=== PATIENT | male | born 1970 | race Caucasian/White ===

== ENCOUNTER 2024-05-27 08:50 | Outpatient (AMB) | payer MEDICARE, MEDICAID, SELFPAY ==
--- NOTE | 2024-05-27 09:17 | MHC.OFFVIS ---
Vital Signs 05/27/24 09:27 Height 6 ft Weight 425 lb BMI 57.6 BP 112/74 Blood Pressure Location Lt brachial Position Sitting Pulse 71 Pulse Source Pulse Oximeter Pulse Oximetry (%) 98 Oxygen Delivery Method Room Air Intake Visit Reasons: Myopathy Intake Note: Patient presents for Myopathy. I feel pain all over my body. I been like this for 2 years. I feel steady pain on left shoulder and both knees. Oxycodone and Gabapentin helps with the pain. Allergies atorvastatin Allergy (Mild, Verified 05/27/24 09:23) Unknown Medication List - Last Reconciled 05/27/24 by Chelsie Juarez MD acetaminophen 650 mg PO Q6H PRN azathioprine 50 mg PO DAILY duloxetine 60 mg PO DAILY gabapentin 300 mg PO TID losartan 25 mg PO DAILY metoprolol tartrate 25 mg PO BID omeprazole 40 mg PO DAILY oxybutynin chloride 5 mg PO DAILY oxycodone-acetaminophen 10-325 mg 1 tab PO TID PRN warfarin 5 mg PO DAILY warfarin 2.5 mg PO DAILY HPI Comments Details: Patient is a 53-year-old male with hypertension complicated by TIA, diabetes,, history of pulmonary embolism and renal infarct, patent Alvares ovale, and autoimmune necrotizing myopathy who presents today to establish care. Patient had rapid onset of lower extremity muscle weakness 05/2022. CK was checked and was elevated and he was admitted for IV fluids. Despite IV fluids the CK did not respond and so further testing was sought. Of note his CK kept increasing requiring multiple hospitalizations. His 3rd hospitalization he had a muscle biopsy: left calf ([facility]), results were inconclusive. While waiting for the results of the first biopsy he continued to deteriorate and ultimately had respiratory muscle weakness requiring intubation. Transferred to [facility] and had a second biopsy of the right thigh ([facility]) - which showed evidence of immune mediated necrotizing myopathy. He was started on steroids and methotrexate with some improvement in his muscle weakness. Started IVIG every month and PT. Was able to be extubated and trach ultimately removed He was getting his care in [place] but is transitioning back to the [facility] area. IVIG dose last month PT stopped last month as well due to change in insurance Currently on azathioprine and IVIG for his IMNM Current muscle strength - transfers from wheel chair to bed or chair - can stand for a few seconds but cannot walk [facility] Medical History (Updated 01/08/25 @ 15:20 by Chelsie Juarez MD) Necrotizing myositis Statin-induced myositis Surgical History History of appendectomy History of cholecystectomy Family History Mother Myositis Social History (Updated 05/27/24 @ 09:27 by RASHEED Valencia) Household Members: Family Housing: House Alcohol intake: current Patient Tobacco Use Status: Former Tobacco user Cigarettes Per Day: 2 Years Smoked: 30 Review of Systems Const Details: Review of Systems Constitutional: Denies fever, chills, weight loss ENT: Denies vision changes, eye pain or eye redness, dental caries, dry mouth GI: Denies nausea, vomiting, diarrhea, abdominal pain, change in BM Pulm: Denies SOB, ALARCON, hemoptysis, wheezing Cards: Denies chest pain, palpitations Skin: Denies Raynaud's, rash, nail changes, photosensitivity, MANAGER INCOME TAX: Denies headaches, weakness, paresthesias, recurrent falls MSK: as per HPI All other systems reviewed and are unremarkable except noted above Physical Exam Vital Signs: Last Vital Signs Pulse 71 05/27/24 09:27 BP 112/74 05/27/24 09:27 Pulse Ox 98 05/27/24 09:27 Oxygen Delivery Method Room Air 05/27/24 09:27 BMI result Body Mass Index 57.6 Physical Examination CONSTITUITIONAL Patient alert and cooperative. Well appearing and in no apparent painful distress. Examined in wheel chair HEENT Conjunctiva and sclera clear. ?Pupils equal round and reactive to light. ?No lymphadenopathy. ? CHEST/RESPIRATORY SYSTEM Normal respiratory effort and able to speak in complete sentences. ?Clear to auscultation bilaterally. ?No crackles, rales, rhonchi, wheezes heard. CARDIAC SYSTEM Regular rate and rhythm. ?S1 and S2 heard no murmurs. ?Radial pulses intact bilaterally MSK Right Left Neck flexion 5/5 Senior Net Software Developer strength 5/5 5/5 Wrist flexion 5/5 5/5 Wrist extension 5/5 5/5 Elbow flexion 5/5 5/5 Elbow extension 5/5 5/5 Shoulder abduction 5/5 5/5 Shoulder adduction 5/5 5/5 Knee extension 5/5 5/5 Knee flexion 5/5 5/5 Hip flexion 3-4/5 3-4/5 No evidence of synovitis involving the hands, wrists, knees or ankles Bilateral lower extremity tense edema with erythema and scaling to the feet. SKIN Skin intact without rashes. Results Reviewed Results Reviewed: 08/2022 CATALINO 1:320, speckled Negative SSA/SSB, Bridges, SHIP RUNNER, dsDNA, Negative Jo1, PL7, PL12, EJ, OJ, SRP, Mo2, TIF1 gamma, MDA 5, NXP2, PM/Scl70, Ku, SSA 52KD, U1RNP, U2RNP, U3RNP HMGCR Ab positive 70 Assessment & Plan Assessment & Plan (1) Necrotizing myositis: Comment: HMGCR positive Biopsy proven Code(s): M60.80 - Other myositis, unspecified site Category: Medical Plan: #Immune mediated necrotizing myositis Patient is a 53-year-old male with biopsy-proven immune mediated necrotizing myositis, hMGCR positive. His course has been complicated by respiratory muscle weakness and concomitant respiratory muscle failure requiring intubation. He has been weaned off of the vent and the trach has been removed and overall he has had improvement in his muscle weakness and his CK has normalized. He still has proximal muscle weakness involving the bilateral lower extremities. We will need to continue his physical therapy as well as restart his medication including IVIG and continue his azathioprine. Plan - IVIG 2g/kg given over 2 days - Azathioprine 150mg daily - Check CK, Aldolase and TPMT - PT - RTC 3 months Plan I spent 60 minutes reviewing the record and labs, contacting and speaking with Dr. Angela Oropeza from [facility], taking a history, examining the patient, discussing the treatment plan and documenting in the medical record Orders: Orders Aldolase Today M60.80 - Other myositis, unspecified site, M60.9 - Myositis, unspecified, T46.6X5A - Adverse effect of antihyperlipidemic and antiarteriosclerotic drugs, initial encounter Immunoglobulins,IgG IgA IgM Today M60.80 - Other myositis, unspecified site, M60.9 - Myositis, unspecified, T46.6X5A - Adverse effect of antihyperlipidemic and antiarteriosclerotic drugs, initial encounter PT Evaluation and Treatment Today M60.80 - Other myositis, unspecified site, M60.9 - Myositis, unspecified, T46.6X5A - Adverse effect of antihyperlipidemic and antiarteriosclerotic drugs, initial encounter Prometheus TPMT Enzyme Today M60.80 - Other myositis, unspecified site, M60.9 - Myositis, unspecified, T46.6X5A - Adverse effect of antihyperlipidemic and antiarteriosclerotic drugs, initial encounter Creatine Kinase Total Today M60.80 - Other myositis, unspecified site, M60.9 - Myositis, unspecified, T46.6X5A - Adverse effect of antihyperlipidemic and antiarteriosclerotic drugs, initial encounter Referrals Infusion Center Notification G72.49 - Other inflammatory and immune myopathies, not elsewhere classified, M60.80 - Other myositis, unspecified site, M60.9 - Myositis, unspecified, T46.6X5A - Adverse effect of antihyperlipidemic and antiarteriosclerotic drugs, initial encounter Coding Level of Care Code New Pt Level 5 (94128) Complex EM visit Add On G2211 Diagnoses Necrotizing myositis M60.80
[2024-05-27 09:27] VITALS: BP 112/74; PULSE 71; O2SAT 98; BMI 57.6
== END 2024-05-27 10:32 | disposition home or self-care (01) ==
PROVIDERS: PCP Nurse Practitioner Family; Visit Provider Student in an Organized Health Care Education/Training Program
DX: M60.89 Other myositis, multiple sites (principal)
CPT/HCPCS: 99205; G2211

== ENCOUNTER → 2024-05-27 08:50 | Outpatient (BNVA) | payer MEDICARE, MEDICAID, SELFPAY | PROVIDERS: PCP Nurse Practitioner Family; Visit Provider Student in an Organized Health Care Education/Training Program | DX: M60.80 Other myositis, unspecified site (principal) | CPT/HCPCS: 99202 ==

== ENCOUNTER 2024-05-29 10:29 | Outpatient (AMB) | payer MEDICARE, MEDICAID, SELFPAY ==
--- NOTE | 2024-05-29 10:36 | A.OFFVIS_ITS ---
Vital Signs 05/29/24 10:39 Height 6 ft Weight 425 lb BMI 57.6 BP 134/82 Blood Pressure Location Lt radial Position Sitting Respiration 16 Pulse 81 Pulse Source Pulse Oximeter Pulse Oximetry (%) 98 Oxygen Delivery Method Room Air Intake Visit Reasons: Necrotizing Autoimmune Myopathy Allergies atorvastatin Allergy (Mild, Verified 05/29/24 10:40) Unknown Medication List - Last Reconciled 05/29/24 by Angie Canales LPN acetaminophen 650 mg PO Q6H PRN azathioprine 50 mg PO DAILY duloxetine 60 mg PO DAILY gabapentin 300 mg PO TID losartan 25 mg PO DAILY metoprolol tartrate 25 mg PO BID omeprazole 40 mg PO DAILY oxybutynin chloride 5 mg PO DAILY oxycodone-acetaminophen 10-325 mg 1 tab PO TID PRN warfarin 5 mg PO DAILY warfarin 2.5 mg PO DAILY HPI HPI Necrotizing Autoimmune Myopathy: Details: 53-year-old male referred to us by his primary care provider to solicit alternatives and/or recommendations regarding his chronic pain management with o pioids. Per report patient experienced a bout of rhabdomyolysis in 2022. Subsequently he was diagnosed with autoimmune necrotizing myositis. This resulted in developing generalized chronic pain that was managed at the nursing facility initially with oxycodone 10 mg up to 6 times a day. Following discharge, he was placed on immunotherapy and his symptoms somewhat started to improve. This allowed him to wean down on his Percocet use. Unfortunately over the last few months, his response to immunotherapy has plateaued. This has resulted in continuing chronic pain symptoms that affect different parts of his body requiring narcotic use. He was able to wean down to oxycodone-acetaminophen 10/325 mg 3 times a day but he feels that this is not enough to control his symptoms. He continues to d escribe pain in his bilateral shoulders, hips, knees, ankles, neck and lower back she is between 7 to 9/10 in intensity at its worst. He recently had a change in his primary care provider who was not comfortable in continuing his prescription for chronic opioids. He is currently on 45 mme per day. He denies any side effects including sedation, cognitive impairment or constipation. He has not had any episodes of drowsiness or lack or arousal. He uses a CPAP for ANDRA. On exam today: Appears afebrile. Alert and oriented. Mood and affect appropriate. Follows and participates in conversation appropriately. Respiratory effort is unlabored. Sitting comfortably in wheelchair. [facility] Medical History (Updated 05/27/24 @ 15:20 by Chelsie Juarez MD) Necrotizing myositis Statin-induced myositis Surgical History History of appendectomy History of cholecystectomy Family History Mother Myositis Social History (Updated 05/27/24 @ 09:27 by RASHEED Valencia) Household Members: Family Housing: House Alcohol intake: current Patient Tobacco Use Status: Former Tobacco user Cigarettes Per Day: 2 Years Smoked: 30 Physical Exam Vital Signs: Last Vital Signs Pulse 81 05/29/24 10:39 Resp 16 05/29/24 10:39 BP 134/82 05/29/24 10:39 Pulse Ox 98 05/29/24 10:39 Oxygen Delivery Method Room Air 05/29/24 10:39 BMI result Body Mass Index 57.6 Results Reviewed Results Reviewed: Notes in prior documentation reviewed. Assessment & Plan Assessment & Plan (1) Necrotizing myositis: Comment: HMGCR positive Biopsy proven Code(s): M60.80 - Other myositis, unspecified site Category: Medical (2) Chronic narcotic use: Code(s): F11.90 - Opioid use, unspecified, uncomplicated Category: Social Hx Plan 53-year-old pleasant gentleman with chronic pain syndrome requiring narcotic use secondary to autoimmune myositis. Risk factors for continuing opioid use includes obesity and ANDRA. Reassuring factors for continuing opioid use include ANDRA treated with CPAP, lack of side effects including sedative hypnotic effects as well as constipation. He does report good response to opioid therapy and feels that at 60 mme per day he was doing very well from a functional standpoint. He does not have a Narcan prescription. He does have a contract with his primary care provider. He has been undergoing random urine screening. I had a long conversation with the patient explaining to him that we are a strictly interventional pain treatment Center and are not accepting any patients into her chronic opiate program at this time. He expressed understanding. For continuing his treatment I recommended that he continue his prescription through his primary care's office. My recommendations to continue this course are as follows: 1. Okay to continue oxycodone-acetaminophen 10/325 mg up to 4 times a day for a total of 60 mme per day. 2. No further escalation beyond the 60 mme limit. 3. Continue medical management of underlying autoimmune condition to help decrease pain and morbidity associated with the pain. Once his underlying conditions are under better control, wean opioids as tolerated. Stick to p.r.n. opioid dosing and titrate daily to requirement. 4. Opiate contract on file with the prescribing office and adhere to the guidelines of the contract. 5. Have Narcan readily available at home while on opioid therapy. 6. Continue CPAP therapy for ANDRA. 7. Watch for symptoms of constipation and treat as needed. Patient expressed understanding and agreement with all of these recommendations. He will follow-up with his primary care provider in light of these recommendations. It was a pleasure meeting him, thank you for this referral. Coding Level of Care Code New Pt Level 5 (77434) Diagnoses Necrotizing myositis M60.80 Chronic narcotic use F11.90
[2024-05-29 10:39] VITALS: BP 134/82; PULSE 81; RESP 16; O2SAT 98; BMI 57.6
== END 2024-05-29 11:15 | disposition home or self-care (01) ==
PROVIDERS: PCP Nurse Practitioner Family; Referring Provider Nurse Practitioner Family; Visit Provider Internal Medicine
DX: M60.80 Other myositis, unspecified site (principal); Z79.891 Long term (current) use of opiate analgesic
CPT/HCPCS: 99204

== ENCOUNTER → 2024-05-29 10:29 | Outpatient (BNVA) | payer MEDICARE, MEDICAID, SELFPAY | PROVIDERS: PCP Nurse Practitioner Family; Referring Provider Nurse Practitioner Family; Visit Provider Internal Medicine | DX: M60.80 Other myositis, unspecified site (principal); F11.20 Opioid dependence, uncomplicated | CPT/HCPCS: 99202 ==

== ENCOUNTER 2024-09-23 15:51 | Outpatient (AMB) | payer MEDICARE, MEDICAID, SELFPAY ==
--- NOTE | 2024-09-23 15:54 | MHC.OFFVIS ---
Vital Signs 09/23/24 15:57 Height 6 ft Weight 425 lb BMI 57.6 BP 128/74 Blood Pressure Location Lt brachial Position Sitting Pulse 77 Pulse Source Pulse Oximeter Pulse Oximetry (%) 97 Oxygen Delivery Method Room Air Intake Visit Reasons: Follow up from IVIG Intake Note: Patient presents for follow up on his infusion. Patient needs refill on Azathioprine today. Allergies atorvastatin Allergy (Mild, Verified 09/23/24 15:59) Unknown Medication List - Last Reconciled 09/23/24 by Chelsie Juarez MD acetaminophen 650 mg PO Q6H PRN azathioprine 50 mg PO DAILY duloxetine 60 mg PO DAILY gabapentin 300 mg PO TID losartan 25 mg PO DAILY metoprolol tartrate 25 mg PO BID omeprazole 40 mg PO DAILY oxybutynin chloride 5 mg PO DAILY oxycodone-acetaminophen 10-325 mg 1 tab PO TID PRN warfarin 5 mg PO DAILY warfarin 2.5 mg PO DAILY HPI Comments Details: Patient is a 53-year-old male with hypertension complicated by TIA, diabetes,, history of pulmonary embolism and renal infarct, patent Alvares ovale, and 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 At that time he was establishing care for his biopsy-proven immune mediated necrotizing myositis, hMGCR positive. He was restarted on his IVIG and azathioprine. Doing well on the gammagard Feels that switching was good Slowly working with PT Currently having issues with his shoulder. Soreness all the time. Can't lay on it. Currently doing PT for this Rheumatologic History: Initial History by me: Patient is a 53-year-old male with hypertension complicated by TIA, diabetes,, history of pulmonary embolism and renal infarct, patent Alvares ovale, and autoimmune necrotizing myopathy who presents today to establish care. Patient had rapid onset of lower extremity muscle weakness 05/2022. CK was checked and was elevated and he was admitted for IV fluids. Despite IV fluids the CK did not respond and so further testing was sought. Of note his CK kept increasing requiring multiple hospitalizations. His 3rd hospitalization he had a muscle biopsy: left calf ([facility]), results were inconclusive. While waiting for the results of the first biopsy he continued to deteriorate and ultimately had respiratory muscle weakness requiring intubation. Transferred to [facility] and had a second biopsy of the right thigh ([facility]) - which showed evidence of immune mediated necrotizing myopathy. He was started on steroids and methotrexate with some improvement in his muscle weakness. Started IVIG every month and PT. Was able to be extubated and trach ultimately removed He was getting his care in [place] but is transitioning back to the [facility] area. IVIG dose last month PT stopped last month as well due to change in insurance Currently on azathioprine and IVIG for his IMNM Current muscle strength - transfers from wheel chair to bed or chair - can stand for a few seconds but cannot walk Current Rheumatology Medication(s): IVIG 2g/kg every 4 weeks given over 2 days Azathioprine 150mg daily [facility] Medical History (Updated 05/27/24 @ 15:20 by Chelsie Juarez MD) Necrotizing myositis Statin-induced myositis Surgical History History of appendectomy History of cholecystectomy Family History Mother Myositis Social History (Updated 05/27/24 @ 09:27 by RASHEED Valencia) Household Members: Family Housing: House Alcohol intake: current Patient Tobacco Use Status: Former Tobacco user Cigarettes Per Day: 2 Years Smoked: 30 Review of Systems Const Details: Review of Systems Constitutional: Denies fever, chills, weight loss ENT: Denies vision changes, eye pain or eye redness, dental caries, dry mouth GI: Denies nausea, vomiting, diarrhea, abdominal pain, change in BM Pulm: Denies SOB, ALARCON, hemoptysis, wheezing Cards: Denies chest pain, palpitations Skin: Denies Raynaud's, rash, nail changes, photosensitivity, GANG LEADER: Denies headaches, weakness, paresthesias, recurrent falls MSK: as per HPI All other systems reviewed and are unremarkable except noted above Physical Exam Vital Signs: BMI result Body Mass Index 57.6 Vital signs reviewed Physical Examination CONSTITUITIONAL Patient alert and cooperative. Well appearing and in no apparent painful distress. Morbidly obese. Examined in wheel chair HEENT Conjunctiva and sclera clear. ?Pupils equal round and reactive to light. ?No lymphadenopathy. ? CHEST/RESPIRATORY SYSTEM Normal respiratory effort and able to speak in complete sentences. ?Clear to auscultation bilaterally. ?No crackles, rales, rhonchi, wheezes heard. CARDIAC SYSTEM Regular rate and rhythm. ?S1 and S2 heard no murmurs. ?Radial pulses intact bilaterally MSK Right Left Neck flexion 5/5 School Cleaner strength 5/5 5/5 Wrist flexion 5/5 5/5 Wrist extension 5/5 5/5 Elbow flexion 5/5 5/5 Elbow extension 5/5 5/5 Shoulder abduction 5/5 4/5 Shoulder adduction 5/5 5/5 Knee extension 5/5 5/5 Knee flexion 5/5 5/5 Hip flexion 4/5 4/5 No evidence of synovitis involving the hands, wrists, knees or ankles Bilateral lower extremity tense edema with erythema and no further scaling. SKIN Skin intact without rashes. Lipodermatosclerosis noted to bilateral gaitor region of the legs Results Reviewed Results Reviewed: 05/2024 CK 1370 (H) Aldolase 5.3 (nl) TPMT 15.6 Assessment & Plan Assessment & Plan (1) Necrotizing myositis: Comment: HMGCR positive Biopsy proven Code(s): M60.80 - Other myositis, unspecified site Category: Medical Plan: #Immune mediated necrotizing myositis Patient is a 53-year-old male with biopsy-proven immune mediated necrotizing myositis, hMGCR positive. His course has been complicated by respiratory muscle weakness and concomitant respiratory muscle failure requiring intubation. He has been weaned off of the vent and the trach has been removed and overall he has had improvement in his muscle weakness and his CK has normalized. He still has proximal muscle weakness involving the bilateral lower extremities. Doing well on the gammagard. Continue PT, IVIG and azathioprine Plan - IVIG 2g/kg given over 2 days every 4 weeks - Azathioprine 150mg daily - PT - RTC 4 months - Labs before visit: CBC, CMP, ESR, CRP, CK, Aldolase (2) Shoulder pain, bilateral: Code(s): M25.511 - Pain in right shoulder; M25.512 - Pain in left shoulder Qualifiers: Chronicity: chronic Qualified Code(s): M25.511 - Pain in right shoulder; M25.512 - Pain in left shoulder; G89.29 - Other chronic pain Plan: #Bilateral shoulder pain Likely tendonitis due to overuse in the wheel chair Left worse than right Continue with PT On percocet-acetominophen Follow up in 6 weeks to re eval for shoulder injection (3) Long-term current use of intravenous immunoglobulin (IVIG): Code(s): Z79.899 - Other computer terminal operator (current) drug therapy Plan: #Long-term use of IVIG Discussed with this patient the risks and benefits of IVIG use to the management of the rheumatic condition Benefits include improved disease control and maintenance of remission Risks include anaphylaxis, blood clots, transfusion related acute lung injury, hemolytic reaction, fluid overload, heart problems (4) Encounter for monitoring azathioprine therapy: Code(s): Z51.81 - Encounter for therapeutic drug level monitoring; Z79.624 - detention (current) use of inhibitors of nucleotide synthesis Plan: #Long-term use of azathioprine Discussed with patient the benefits and risks of azathioprine for the management of the rheumatic condition Benefits include: ? - Reduced pain, maintenance of remission and reduction of flares Risks include: - Bone marrow suppression, GI upset, lymphoma, hepatotoxicity, pancreatitis, hypersensitivity syndrome Drug monitoring: CBC every 4 weeks for the 1st 3 months then CBC BMP LFTs every 3 months Avoid concomitant sulfasalazine, allopurinol or febuxostat Plan I spent 30 minutes reviewing the record and labs, taking a history, examining the patient, discussing the treatment plan and documenting in the medical record Orders: Orders Comprehensive Met. Panel 4 Months M60.80 - Other myositis, unspecified site, Z51.81 - Encounter for therapeutic drug level monitoring, Z79.624 - detention (current) use of inhibitors of nucleotide synthesis, Z79.899 - Other computer terminal operator (current) drug therapy Immunoglobulins,IgG IgA IgM 4 Months M60.80 - Other myositis, unspecified site, Z51.81 - Encounter for therapeutic drug level monitoring, Z79.624 - detention (current) use of inhibitors of nucleotide synthesis, Z79.899 - Other computer terminal operator (current) drug therapy Thiopurine Methyltransferase Today M60.80 - Other myositis, unspecified site, Z51.81 - Encounter for therapeutic drug level monitoring, Z79.624 - detention (current) use of inhibitors of nucleotide synthesis, Z79.899 - Other computer terminal operator (current) drug therapy Complete Blood Count Auto Diff Today M60.80 - Other myositis, unspecified site Comprehensive Met. Panel Today M60.80 - Other myositis, unspecified site Creatine Kinase Total Today M60.80 - Other myositis, unspecified site Aldolase Today M60.80 - Other myositis, unspecified site Complete Blood Count Auto Diff 4 Months M60.80 - Other myositis, unspecified site, Z51.81 - Encounter for therapeutic drug level monitoring, Z79.624 - rodent exterminator (current) use of inhibitors of nucleotide synthesis, Z79.899 - Other computer terminal operator (current) drug therapy C Reactive Protein 4 Months M60.80 - Other myositis, unspecified site, Z51.81 - Encounter for therapeutic drug level monitoring, Z79.624 - detention (current) use of inhibitors of nucleotide synthesis, Z79.899 - Other computer terminal operator (current) drug therapy Creatine Kinase Total 4 Months M60.80 - Other myositis, unspecified site, Z51.81 - Encounter for therapeutic drug level monitoring, Z79.624 - rodent exterminator (current) use of inhibitors of nucleotide synthesis, Z79.899 - Other nursing home (current) drug therapy Aldolase 4 Months M60.80 - Other myositis, unspecified site, Z51.81 - Encounter for therapeutic drug level monitoring, Z79.624 - rodent exterminator (current) use of inhibitors of nucleotide synthesis, Z79.899 - Other computer terminal operator (current) drug therapy Erythrocyte Sedimentation Rate 4 Months M60.80 - Other myositis, unspecified site, Z51.81 - Encounter for therapeutic drug level monitoring, Z79.624 - detention (current) use of inhibitors of nucleotide synthesis, Z79.899 - Other nursing home (current) drug therapy C Reactive Protein Today M60.80 - Other myositis, unspecified site Erythrocyte Sedimentation Rate Today M60.80 - Other myositis, unspecified site Immunoglobulins,IgG IgA IgM Today M60.80 - Other myositis, unspecified site Coding Level of Care Code Est Pt Level 4 (13429) Complex EM visit Add On G2211 Diagnoses Necrotizing myositis M60.80 Chronic pain of both shoulders M25.511; M25.512; G89.29 Chronicity: chronic Long-term current use of intravenous immunoglobulin (IVIG) Z79.899 Encounter for monitoring azathioprine therapy Z51.81; Z79.624
[2024-09-23 15:57] VITALS: BP 128/74; PULSE 77; O2SAT 97; BMI 57.6
--- OUTSIDE RECORDS SUMMARY | 2024-09-23 16:27 | XMS_ITS | Clinical Summary ---
Author Organization [facility] Address [address] [facility] [address] [place] [address] Phone Care Team Providers Care Mutual Fund Accountant Name Role Phone Lily Her MD Primary Care Provider [phone] Allergies Active Allergy Reactions Criticality Noted Date Comments Dust Mite Extract 12/19/2020 Other 12/19/2020 Medications warfarin (COUMADIN) 5 MG tablet Take 5 mg by mouth 1 (one) time each day Take as directed per After Visit Summary. Active atorvastatin (LIPITOR) 80 MG tablet Take 80 mg by mouth 1 (one) time each day Active lisinopril-hydr oCHLOROthiazide (PRINZIDE,ZESTO RETIC) 10-12.5 MG per tablet Take 1 tablet by mouth 1 (one) time each day Active metFORMIN (GLUMETZA) 500 MG 24 hr tablet Take 500 mg by mouth 2 (two) times a day Do not crush, chew, or split. Active omeprazole (PriLOSEC) [address] capsule Take 40 mg by mouth at bed time Do not crush or chew. Active metoprolol succinate XL (TOPROL XL) 25 MG 24 hr tablet Take 1 tablet by mouth 1 (one) time each day 12/22/2020 Active Active Problems Problem Noted Date Diagnosed Date Acute nontraumatic kidney injury 12/27/2020 Acute pulmonary embolism 12/22/2020 Overview (12/22/2020): w/ acute cor pulmonale Atrial paroxysmal tachycardia 12/22/2020 Patent foramen ovale 12/22/2020 Peripheral pulmonary artery disease 12/22/2020 Personal history of stroke 12/22/2020 Renal infarct 12/22/2020 Type 2 diabetes mellitus 12/22/2020 Clifton's esophagus 02/02/2014 Fatty liver 02/02/2014 Hypertension 02/02/2014 Morbid obesity 02/02/2014 Sleep apnea 02/02/2014 Reflux esophagitis 10/16/2012 Resolved Problems Problem Noted Date Diagnosed Date Resolved Date Acute kidney injury due to trauma 12/22/2020 12/27/2020 Social History Tobacco Use Types Packs/Day Years Used Date Smoking Tobacco: Every Day Cigarettes Smokeless Tobacco: Never Alcohol Use Standard Drinks/Week Comments Defer 0 (1 standard drink = 0.6 oz pur e alcohol) Sex and Gender Information Value Date Recorded Sex Assigned at Not on file Legal Sex Male 5:26 PM EST Gender Identity Not on file Sexual Orientation Not on file Last Filed Vital Signs Vital Sign Reading Time Taken Comments Blood Pressure 138/64 05/22/2021 12:51 PM EST Pulse 80 05/22/2021 12:51 PM EST Temperature - - Respiratory Rate - - Oxygen Saturation 96% 05/22/2021 12:51 PM EST Inhaled Oxygen Concentration - - Weight 193 kg (425 lb 12.8 oz) 05/22/2021 12:51 PM EST Height 182.9 cm (6') 12/26/2020 10:18 AM EDT Body Mass Index 57.75 12/26/2020 10:18 AM EDT Plan of Treatment Health Maintenance Due Date Last Done Comments Hepatitis B Vaccine (1 of 3 - 19+ 3-dose series) 10/18 Pneumococcal Vaccine: 50+ Years (1 of 2 - PCV) 991 Colorectal Cancer Screening: Annual FOBT 10/18/2020 Colorectal Cancer Screening: Colonoscopy 10/18/2020 Colorectal Cancer Screening: Sigmoidoscopy 10/18/2020 Diabetes: Hemoglobin A1C 12/22/2020 Diabetes: Ophthalmology Exam 12/22/2020 Diabetes: Pedal Pulse Checked 12/22/2020 Diabetes: Sensory Foot Exam 12/22/2020 Diabetes: Visual Foot Exam 12/22/2020 Influenza Vaccine (Season Ended) 2025 [place] Care Teams Mutual Fund Accountant Relationship Specialty Start Date End Date Lily Her MD [address] [place] [id number] PCP - General Family Medicine 05/22/21
--- OUTSIDE RECORDS SUMMARY | 2024-09-23 16:27 | XMS_ITS | Clinical Summary ---
Author Organization [facility] Address [address] [place] [address] Care Team Providers Care Magnet Placer Name Role Phone Lily Her MD Primary Care Provider [phone] Allergies No known active allergies Medications Medication Sig Dispensed Refills Start Date End Date Status warfarin (COUMADIN) 5 MG tablet TAKE 1 TABLET BY MOUTH EVERY DAY FOR 90 DAYS. 0 12/22/2020 Active omeprazole (PriLOSEC) 40 MG capsule Take 40 mg by mouth daily. 0 12/25/2020 Active metoprolol succinate (TOPROL-XL) 24 hr tablet 25 mg Take 25 mg by mouth daily. 0 12/22/2020 Active metFORMIN (GLUCOPHAGE) tablet 500 mg TAKE 1 TABLET BY MOUTH TWICE A DAY FOR 90 DAYS. 0 12/22/2020 Active lisinopril-hydroCHLORO thiazide (PRINZIDE,ZESTORETIC) tablet 10-12.5 mg Take 1 tablet by mouth daily. 0 11/04/2020 Active gabapentin (NEURONTIN) 300 MG capsule Take 600 mg by mouth 3 (three) times a day. 0 01/02/2022 Active tiZANidine (ZANAFLEX) 4 MG tablet TAKE 1 TABLET BY MOUTH TWICE A DAY NEEDED FOR PAIN NEED UPDATED INSURACNE 0 01/10/2022 Active atorvastatin (LIPITOR) tablet 80 mg Take 80 mg by mouth. 0 Active Active Problems Problem Noted Date Diagnosed Date Pulmonary embolus 01/25/2021 Social History Tobacco Use Types Packs/Day Years Used Date Smoking Tobacco: Former Cigarettes Smokeless Tobacco: Never Comments:Quit 7/1/21 Alcohol Use Standard Drinks/Week Comments Not Currently 0 (1 standard drink = 0.6 oz pur e alcohol) Sex and Gender Information Value Date Recorded Sex Assigned at Not on file Gender Identity Not on file Sexual Orientation Not on file Job Start Date Occupation Industry Not on file Not on file Not on file Last Filed Vital Signs Vital Sign Reading Time Taken Comments Blood Pressure 138/79 01/26/2022 10:47 AM EDT Pulse 79 01/26/2022 10:47 AM EDT Temperature 36.1 ??C (97 ??F) 01/26/2022 10: 47 AM EDT Respiratory Rate - - Oxygen Saturation 98% 01/26/2022 10: 47 AM EDT Inhaled Oxygen Concentration - - Weight 203.9 kg (449 lb 9.6 oz) 022 10:47 AM EDT Height 182.9 cm (6') 01/26/2022 10:47 AM EDT Body Mass Index 60.98 01/26/2022 10:47 AM EDT Plan of Treatment Health Maintenance Due Date Last Done Comments Hepatitis B Vaccines (1 of 3 - 3-dose series) 1971 Hepatitis C Screening 1971 COVID-19 Vaccine (#1) 04/19/1972 Depression Screening 1983 Preventative Health Evaluation 10/18/1989 Colon Cancer Screening (Colonoscopy) 10/18/2016 Shingrix-Zoster Vaccine (1 of 2) 10/18/2021 Influenza Vaccine (#1) 2024 DTap / Tdap / Td (2 - Td or Tdap) 07/12/2024 015 Pneumococcal Vaccine Aged Out No long er eligible based on patient's age to complete this topic RSV Ped < 20 months Aged Out No longe r eligible based on patient's age to complete this topic Care Teams Magnet Placer Relationship Specialty Start Date End Date Lily Her MD [address] [place] [address] PCP - General Family Medicine 01/26/22
--- OUTSIDE RECORDS SUMMARY | 2024-09-23 16:27 | XMS_ITS | Encounter Summary ---
Author Organization [facility] [place] [address] Care Team Providers Care Coffee Shop Aide Name Role Phone Lily Her MD Primary Care Provider [phone] Encounter Details Date Type Department Care Team (Late st Contact Info) Description 03/10/2024 4:53 PM EDT Hospital Encounter TH HISTORIC ENCOUNTERS EASTERN CONVERSION ONLY Taryn Maldonado, AQUA AMMONIA OPERATOR [address] [place] [address] Social History Tobacco Use Types Packs/Day Years [...] as of this encounter Plan of Treatment Upcoming Encounters Date Type Department Care Team (Late st Contact Info) Description 09/24/2024 1:00 PM EDT Treatment [facility] [address] [phone] Tess Barroso PT 09/28/2024 12:00 PM EDT Treatment [facility] [address] [phone] Tess Barroso, PT 09/30/2024 12:30 PM EDT Treatment [address] [phone] Ap Overton, HEAT TREATER HEAD 10/05/2024 1:00 PM EDT Treatment [address] [phone] Ap Overton, HEAT TREATER HEAD 10/13/2024 1:15 PM EDT Treatment [address] [phone] Ap Overton, HEAT TREATER HEAD 10/15/2024 1:00 PM EDT Treatment [address] [phone] Ap Overton, HEAT TREATER HEAD 2024 12:30 PM EDT Treatment [address] [phone] Dennys Swain, HEAT TREATER HEAD 10/21/2024 12:00 PM EDT Treatment [address] [phone] Tess Barroso, PT documented as of this encounter Goals Goal [...] the day L sh elevation AROM at [id number] for overhead reaching tasks Generally met, varies [...] on filedocumented in this encounter Care Teams Coffee Shop Aide Relationship Specialty Start Date End Date Lily Her MD [address] [place] [address], [place] [address] PCP - General Family Medicine 01/26/22 documented as of this encounter
--- OUTSIDE RECORDS SUMMARY | 2024-09-23 16:27 | XMS_ITS | Encounter Summary ---
Author Organization [facility] [place] [address] Care Team Providers Care Avp Name Role Phone Lily Her MD Primary Care Provider [phone] Encounter Details Date Type Department Care Team (Late st Contact Info) Description 03/10/2024 3:00 PM EDT Hospital Encounter TH HISTORIC ENCOUNTERS EASTERN CONVERSION ONLY Taryn Maldonado, BRAND ACTIVATION MANAGER [address] [place] [address] Social History Tobacco Use Types Packs/Day Years [...] Info) Description 09/24/2024 1:00 PM EDT Treatment [facility] [address] [phone] Tess Barrsoo PT 09/28/2024 12:00 PM EDT Treatment [facility] [address] [phone] Tess Barroso, PT 09/30/2024 12:30 PM EDT Treatment [address] [phone] Ap Overton, MANAGEMENT SUPERVISOR 10/05/2024 1:00 PM EDT Treatment [address] [phone] Ap Overton, MANAGEMENT SUPERVISOR 10/13/2024 1:15 PM EDT Treatment [address] [phone] Ap Overton, MANAGEMENT SUPERVISOR 10/15/2024 1:00 PM EDT Treatment [address] [phone] Ap Overton, MANAGEMENT SUPERVISOR 2024 12:30 PM EDT Treatment [address] [phone] Dennys Swain, MANAGEMENT SUPERVISOR 10/21/2024 12:00 PM EDT Treatment [address] [phone] Tess Barroso, PT documented as of this [...] the day L sh elevation AROM at [id number] for overhead reaching tasks Generally met, varies [...] on filedocumented in this encounter Care Teams Avp Relationship Specialty Start Date End Date Lily Her MD [address] [place] [address], [place] [address] PCP - General Family Medicine 01/26/22 documented as of this encounter
--- OUTSIDE RECORDS SUMMARY | 2024-09-23 16:27 | XMS_ITS | Clinical Summary ---
Author Organization 175 [facility] Address 175 [place] [address] Phone Care Team Providers Care Dictating Machine Transcriber Name Role Phone Lily Her MD Primary Care Provider [phone] Active Problems Problem Noted Date Diagnosed Date Chronic right shoulder pain 03/26/2024 Chronic left shoulder pain 03/26/2024 Encounters Date Type Department Care Team Description 09/21/2024 2:00 PM EDT Treatment [facility] [address] [phone] Ap Overton, PELLETISING EXTRUDER OPERATOR Other myositis, unspecified site (Primary Dx) 09/07/2024 11:00 AM EDT Treatment [facility] [address] [phone] Tess Barroso, PT Other myositis, unspecified site (Primary Dx); Muscle weakness (generalized) 09/07/2024 Plan of Care Documentation [facility] [address] [phone] 08/27/2024 11:00 AM EDT Treatment [facility] [address] [phone] Dennys Swain PTA Other myositis, unspecified site (Primary Dx) 08/25/2024 11:00 AM EDT Treatment [facility] [address] [phone] Dennys Swain, PATIENCE Other myositis, unspecified site (Primary Dx) 08/20/2024 11:00 AM EDT Treatment [address] [phone] Tess Barroso, PT Other myositis, unspecified site (Primary Dx) 08/18/2024 11:00 AM EDT Treatment [address] [phone] Ap Overton, PELLETISING EXTRUDER OPERATOR Other myositis, unspecified site (Primary Dx) 08/11/2024 1:00 PM EDT Treatment [address] [phone] Ap Overton, PELLETISING EXTRUDER OPERATOR Other myositis, unspecified site (Primary Dx) 07/30/2024 1:00 PM EDT Evaluation [address] [phone] Tess Barroso, PT Other myositis, unspecified site (Primary Dx) 07/30/2024 Plan of Care Documentation [address] [phone] from Last 3 Months Surgical History Surgery Date Site/Laterality Comments CHOLECYSTECTOMY 2009 PROCEDURE: MO LAPAROSCOPY SURG CHOLECYSTECTOMY APPENDECTOMY 1999 PROCEDURE: MO APPENDECTOMY SHOULDER SURGERY Right PROCEDURE: HISTORICAL SHOULDER SURGERY LEG SURGERY 2000 Right PROCEDURE: HISTORICAL LEG SURGERY; COMMENT: FIBULA APPENDECTOMY PROCEDURE:APPENDECTOMY STOMACH SURGERY PROCEDURE:STOMACH SURGERY OTHER SURGICAL HISTORY PROCEDURE:shoulder surgery Medical History Medical History Date Comments TIA (transient ischemic attack) DX:TIA (transient ischemic attack) Nicotine dependence DX:Nicotine dependence Hyperlipemia DX:Hyperlipemia ANDRA (obstructive sleep apnea) DX :ANDRA (obstructive sleep apnea) Pulmonary hypertension (CMS/ HCC V24, CMS/HCC V28) DX:Pulmonary hypertension (H CC) Clifton's esophagus DX:Clifton's esophagus Brain TIA DX:Brain TIA DM (diabetes mellitus), type 2 (CMS/HCC V24, CMS/HCC V28) DX:DM (diabetes mellitus), t ype 2 (HCC) Fatty liver DX:Fatty liver Morbid obesity (CMS/HCC V24, CMS/HCC V28) DX:Morbid obesity (HCC) PFO (patent foramen ovale) DX:PF O (patent foramen ovale) Pulmonary embolism, bilatera l (CMS/HCC V24, CMS/HCC V28) DX:Pulmonary embolism, bilat eral (HCC) Renal infarct (CMS/[facility] V24) DX:R enal infarct (HCC) Stroke (CMS/HCC V24, CMS/HCC V28) DX:Stroke (HCC) Diabetes mellitus (CMS/HCC V 24, CMS/[facility] V28) DX:Diabetes mellitus (HCC) GERD (gastroesophageal reflux disease) DX:GERD (gastroesophageal reflux disease) Hypertension DX:Hypertension Sleep apnea DX:Sleep apnea Family History Medical History Relation Name Comments Coronary artery disease Neg Hx Diabetes Neg Hx Hypertension Neg Hx Social History Tobacco Use Types Packs/Day Years [...] Orientation Straight 09/07/2024 11 :29 AM EDT Obstetrics History Last Filed Vital Signs Vital Sign Reading Time Taken Comments Blood Pressure 138/79 01/26/2022 10:47 AM EDT Sitting Right arm Pulse 79 01/26/2022 10:47 AM EDT Temperature - - Respiratory Rate - - Oxygen Saturation - - Inhaled Oxygen Concentration - - Weight 204 kg (449 lb 9.6 oz) 01/26/2022 10:47 AM EDT Height 182.9 cm (6') 01/26/2022 10:47 AM EDT Body Mass Index 60.98 01/26/2022 10:47 AM EDT Plan of Treatment Upcoming Encounters Date Type Department Care Team (Late st Contact Info) Description 09/24/2024 1:00 PM EDT Treatment [address] [phone] Tess Barroso, PT 09/28/2024 12:00 PM EDT Treatment [address] [phone] Tess Barroso, PT 09/30/2024 12:30 PM EDT Treatment [address] [phone] Ap Overton, PELLETISING EXTRUDER OPERATOR 10/05/2024 1:00 PM EDT Treatment [address] [phone] Ap Overton, PELLETISING EXTRUDER OPERATOR 10/13/2024 1:15 PM EDT Treatment [address] [phone] Ap Overton, PELLETISING EXTRUDER OPERATOR 10/15/2024 1:00 PM EDT Treatment [address] [phone] Ap Overton, PELLETISING EXTRUDER OPERATOR 2024 12:30 PM EDT Treatment [address] [phone] Dennys Swain, PELLETISING EXTRUDER OPERATOR 10/21/2024 12:00 PM EDT Treatment [address] [phone] Tess Barroso, PT Health Maintenance Due Date Last Done Comments Diabetes: Annual Foot Exam 10/18/1981 Diabetes: Annual Retina Eye Exam 10/18/1981 Hepatitis A Vaccines (1 of 2 - Risk 2-dose series) 10/18/1990 Hepatitis B Vaccines (1 of 3 - 19+ 3-dose series) 10/18/1990 Pneumococcal Vaccine: 50+ Years (1 of 2 - PCV) 10/18/1990 Pneumococcal Vaccine: Pediatrics (0 to 5 Years) and At-Risk Patients (6 to 64 Years) (1 of 2 - PCV) 10/18/1990 Zoster Vaccines (1 of 2) 10/18/1990 COVID-19 Vaccine (3 - Moderna risk series) 04/06/2021 03/09/2021, 02/09/2021 Colorectal Cancer Screening: Colonoscopy 04/22/2022 Depression Screening 04/22/2022 HIV Screening 04/22/2022 Lung Cancer Screening (Low Dose CT) 04/22/2022 Medicare Annual Wellness Visit 04/22/2022 Social Influencers of Health Screening 04/22/2022 Diabetes: Annual Urine Albumin-Creatinine Ratio (uACR) 05/04/2022 Diabetes: Blood Sugar Control Test (HGBA1C) 05/04/2022 Diabetes: Annual GFR (Glomerular Filtration Rate) 11/09/2023 11/08/2022, 11/07/2022, 11/05/2022, Additional history exists Hypertension/CHF/CAD Annual BMP Blood Test 11/09/2023 11/08/2022, 11/07/2022, 11/05/2022, Additional history exists DTaP,Tdap,and Td Vaccines (2 - Td or Tdap) 07/12/2024 07/12/2014 Influenza Vaccine (Season Ended) 2025 Cholesterol Screening (Lipid Panel) 09/12/2027 09/11/2022 Hepatitis C Screening Completed 09/07/2022 HIB Vaccines Aged Out No longer eligi ble based on patient's age to complete this topic HPV Vaccines Aged Out No longer eligi ble based on patient's age to complete this topic IPV Vaccines Aged Out No longer eligi ble based on patient's age to complete this topic MMR Vaccines Aged Out No longer eligi ble based on patient's age to complete this topic Meningococcal ACWY Vaccine Aged Out N o longer eligible based on patient's age to complete this topic Meningococcal B Vaccine Aged Out No l onger eligible based on patient's age to complete this topic RSV Immunization Patients Under 20 months Aged Out No longer eligible based on patient's age to complete this topic Varicella Vaccines Aged Out No longer eligible based on patient's age to complete this topic Goals Goal Patient Goal Type Associated Problems Recent Progress Patient-Stated? Author Pt goal General Improving(11/2023 12:30 PM EST) Yes Lien Haong, OT Note: Improved BUE strength SHORT TERM (8 visits) General Improving(11/2023 12:30 PM EST) Yes Lien Hoang, OT Note: Indep HEP w/ progressions (AAROM, progress to strength) MET R sh elevation AROM at least 120 for overhead reaching tasks Generally met, varies 115-120 depending on the day L sh elevation AROM at [id number] for overhead reaching tasks Generally met, varies [...] ease of transfers and w/c mobility MET Insurance MEDICAID - [place] MEDICARE Care Teams Dictating Machine Transcriber Relationship Specialty Start Date End Date Lily Her MD [address] [place] [phone] PCP - General Family Medicine 01/26/22
--- OUTSIDE RECORDS SUMMARY | 2024-09-23 16:27 | XMS_ITS | Clinical Summary ---
Author Organization [facility] Address [address] [place] [address] Care Team Providers Care Cot Assembler Name Role Phone Unavailable Primary Care Provider Unavailabl e Social History Tobacco Use Types Packs/Day Years Used Date Smoking Tobacco: Never Assessed Sex and Gender Information Value Date Recorded Sex Assigned at Not on file Legal Sex Male 1:47 AM EDT Gender Identity Not on file Sexual Orientation Not on file Plan of Treatment Health Maintenance Due Date Last Done Comments Hepatitis C Screening 1970 DTaP/Tdap/Td (1 - Tdap) 10/18/1989 Hep B (1 of 3 - 19+ 3-dose series) 10/18/1990 Pneumococcal 50+ years (1 of 1 - PCV) 10/18/2021 Zoster (Shingrix) (1 of 2) 10/18/2021 COVID-19 Vaccine ( - 2023-2 5 season) 2024 Influenza (Season Ended) 2025 HPV Vaccine Aged Out No longer eligi ble based on patient's age to complete this topic Hep A Aged Out No longer eligi ble based on patient's age to complete this topic Hib Aged Out No longer eligi ble based on patient's age to complete this topic Meningococcal ACWY Aged Out No longer eligible based on patient's age to complete this topic
--- OUTSIDE RECORDS SUMMARY | 2024-09-23 16:27 | XMS_ITS | Encounter Summary ---
Author Organization [facility] [place] [address] Care Team Providers Care Geomorphology Teacher Name Role Phone Lily Her MD Primary Care Provider [phone] Reason for Visit * Consultation (Urgent) - Authorized Specialty Diagnoses / Procedures Referred By Mukul villavicencio Referred To Contact Physical Therapy Diagnoses Other myositis, unspecified site Lily Her MD [address] [place] [phone] Phone: tel: fax: [address] [phone] Phone: tel: fax: Referral ID Status Reason Start Date Expiration Date Visits Requested Visits Authorized [id number] Authorized Specialty Services Required 07/13/2024 07/13/2025 17 17 Encounter Details Date Type Department Care Team (Late st Contact Info) Description 09/21/2024 2:00 PM EDT Treatment [address] [phone] Ap Overton PTA Other myositis, unspecified site (Primary Dx) Social History Tobacco Use Types Packs/Day Years [...] AM EDT documented as of this encounter Progress Notes * Ap Overton PTA - 09/21/2024 2:00 PM EDT [facility] - Outpatient PHYSICAL THERAPY DAILY TREATMENT NOTE - OP Date: 09/21/2024 Visit Number: [id number] Patient Name: Lawrence Santoyo : 1970 Age: 53 y.o. Gender: male Diagnosis: ICD-10-CM ICD-9-CM 1. Other myositis, unspecified site M60.80 729.1 Date of Onset/Surgery: 05/20/2022 Referring Provider: Lily Her MD Insurance: Payor: MEDICARE / Plan: MEDICARE PART A & B / Product Type: Medicare / Patient Identified by: Ap Overton PTA Language: Gambian Medications: No current outpatient medications on file prior to visit. No current facility-administered medications on file prior to visit. Allergies: has no allergies on file. Precautions: PMH Fall risk: No SUBJECTIVE Subjective Report: Patient reports his shoulder is feeling iffy today Chart Reviewed: Yes Pain Not much pain today TREATMENT INTERVENTION: Nustep L5 x 10mins Seated trunk rotation small yellow med ball x 15 (B) Supine calf stretch with strap x 4 with 20 sec hold Supine LLLD knee ext stretch x 2 min Supine R and L hip flexor stretching with leg off table, 4x30 secs ea Supine mini bridges (squeeze glutes) 2 x 10, 5 sec Man resisted unilat leg press in supine x 10 ea leg Home exercise program: seated hip abd/add/marching, seated LAQ and knee flexion along with seated heel/toe raises ASSESSMENT/Response to Treatment Good ? Attempt staning next visit Patient Education: Education provided: Yes Education Provided To: Patient utilizing Explanation mode(s) of education Response to Education: Verbal Understanding PLAN POC Development/Review: No Change in the Plan of Care; Participants: Patient Total Treatment Time: 45 mins Modalities: Therapeutic procedures: Documentation completed by Ap Overton PTA documented in this encounter Plan of Treatment Upcoming Encounters Date Type Department Care Team (Late st Contact Info) Description 09/24/2024 1:00 PM EDT Treatment [address] [phone] Tess Barroso, PT 09/28/2024 12:00 PM EDT Treatment [address] [phone] Tess Barroso, PT 09/30/2024 12:30 PM EDT Treatment [address] [phone] Ap Overton, AUTOMOBILE UPHOLSTERER APPRENTICE 10/05/2024 1:00 PM EDT Treatment [address] [phone] Ap Overton, AUTOMOBILE UPHOLSTERER APPRENTICE 10/13/2024 1:15 PM EDT Treatment [address] [phone] Ap Overton, AUTOMOBILE UPHOLSTERER APPRENTICE 10/15/2024 1:00 PM EDT Treatment [address] [phone] Ap Overton, AUTOMOBILE UPHOLSTERER APPRENTICE 2024 12:30 PM EDT Treatment [address] [phone] Dennys Swain, AUTOMOBILE UPHOLSTERER APPRENTICE 10/21/2024 12:00 PM EDT Treatment [address] [phone] Tess Barroso, PT documented as of this [...] the day L sh elevation AROM at [id number] for overhead reaching tasks Generally met, varies [...] documented as of this encounter Visit Diagnoses Diagnosis Other myositis, unspecified site- Primary documented in this encounter Care Teams Geomorphology Teacher Relationship Specialty Start Date End Date Lily Her MD [address] [place] [phone] PCP - General Family Medicine 01/26/22 documented as of this encounter
== END 2024-09-23 16:28 | disposition home or self-care (01) ==
LOC: HO.RHE 15:51
PROVIDERS: PCP Nurse Practitioner Family; Visit Provider Student in an Organized Health Care Education/Training Program
DX: M60.80 Other myositis, unspecified site (principal); M25.511 Pain in right shoulder; M25.512 Pain in left shoulder; G89.29 Other chronic pain; Z79.899 Other long term (current) drug therapy; Z51.81 Encounter for therapeutic drug level monitoring; Z79.624 Long term (current) use of inhibitors of nucleotide synthesis
CPT/HCPCS: 99214; G2211

== ENCOUNTER → 2024-09-23 15:51 | Outpatient (BNVA) | payer MEDICARE, MEDICAID, SELFPAY | PROVIDERS: PCP Nurse Practitioner Family; Visit Provider Student in an Organized Health Care Education/Training Program | DX: M60.80 Other myositis, unspecified site (principal); M25.511 Pain in right shoulder; M25.512 Pain in left shoulder; G89.29 Other chronic pain; Z51.81 Encounter for therapeutic drug level monitoring; Z79.624 Long term (current) use of inhibitors of nucleotide synthesis; Z79.899 Other long term (current) drug therapy | CPT/HCPCS: 99212 ==

== ENCOUNTER → 2024-10-30 10:20 | Outpatient (BNVA) | payer MEDICARE, MEDICAID, SELFPAY | PROVIDERS: PCP Nurse Practitioner Family; Visit Provider Student in an Organized Health Care Education/Training Program | DX: Z13.89 Encounter for screening for other disorder (principal) ==

== ENCOUNTER 2024-11-13 08:15 | Outpatient (REF) | payer MEDICARE, MEDICAID, SELFPAY ==
--- OUTSIDE RECORDS SUMMARY | 2024-11-13 08:22 | XMS_ITS | Clinical Summary ---
Author Organization [facility] Address [address] [facility] [address] [place] [address] Phone Care Team Providers Care Technical Analyst Name Role Phone Lily Her MD Primary Care Provider [phone] Allergies Active Allergy Reactions Criticality Noted Date [...] Influenza Vaccine (Season Ended) 2025 Insurance Medicaid MD Medicaid MD Care Teams Technical Analyst Relationship Specialty Start Date End Date Lily Her MD [address] [place] [phone] PCP - General Family Medicine 05/22/21
--- NOTE | 2024-11-13 09:45 | PM.PROC ---
Brief Operative Note Date of procedure: 11/13/24 Pre-op diagnosis: Left shoulder biceps tendonitis Procedure: Date: 11/13/24 Study Type: Limited Ultrasound with Guidance of needle placement Indication: Left shoulder pain Study Site: Left shoulder Equipment: [email or web address] Brief History: Patient with immune mediated necrotizing myositis, currently using a wheel chair. Complaining of left shoulder pain when using the wheel chair that is limiting his PT progress Relevant meds: ?IVIG and azathioprine Findings: ?Orthogonal views of left shoulder, specifically the left biceps muscle were obtained in grayscale and Doppler. Procedure: ?After obtaining informed consent for an ultrasound-guided aspiration and glucocorticoid injection of the left shoulder, the area was imaged with ultrasound. ?The left shoulder was cleaned with chlorhexidine and anesthetized with lidocaine spray. ?A 22 gauge 1.5 in needle was advanced into the peritendon sheath under direct ultrasound visualization using in plane technique. 40 mg of kenalog with 1% Lidocaine was injected through the same needle. ?The procedure was well tolerated. Impressions: ?Biceps tendonitis s/p successful steroid injection Condition: stable
[2024-11-13] MEDS: Lidocaine HCl 2 % MPF 5 ML VIAL SUBCUT (09:53)
[2024-11-13] MEDS: Triamcinolone Acetonide 40 MG/ML VIAL INTRAARTIC (09:53)
== END 2024-11-13 08:16 | disposition home or self-care (01) ==
LOC: HO.US 08:15
PROVIDERS: Visit Provider Student in an Organized Health Care Education/Training Program
DX: M75.22 Bicipital tendinitis, left shoulder (principal)
CPT/HCPCS: 20611; J2003; J3301

== ENCOUNTER → 2024-11-13 08:15 | Outpatient (BNV) | payer MEDICARE, MEDICAID, SELFPAY | PROVIDERS: Visit Provider Student in an Organized Health Care Education/Training Program | DX: M75.22 Bicipital tendinitis, left shoulder (principal) | CPT/HCPCS: 20610; 76942 ==

== ENCOUNTER 2024-12-14 18:48 | Outpatient (REF) | payer MEDICARE, MEDICAID, SELFPAY ==
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
--- OUTSIDE RECORDS SUMMARY | 2024-12-14 18:56 | XMS_ITS | Clinical Summary ---
Author Organization 175 [facility] Address [address] [place] [address] Phone Care Team Providers Care Device Test Engineer Name Role Phone Lily Her MD Primary Care Provider [phone] Active Problems Problem Noted Date Diagnosed Date Chronic right shoulder pain 03/26/2024 Chronic left shoulder pain 03/26/2024 Encounters Date Type Department Care Team Description 10/21/2024 12:00 PM EDT Treatment [address] [phone] Tess Barroso, PT Other myositis, unspecified site (Primary Dx); Muscle weakness (generalized) 2024 12:30 PM EDT Treatment [address] [phone] Dennys Swain, PATIENCE Other myositis, unspecified site (Primary Dx) 10/15/2024 1:00 PM EDT Treatment [address] [phone] Ap Overton, MACHINE SETTER AND REPAIRER 10/13/2024 1:15 PM EDT Treatment [address] [phone] Ap Overton, MACHINE SETTER AND REPAIRER Other myositis, unspecified site (Primary Dx) 10/05/2024 1:00 PM EDT Treatment [address] [phone] Ap Overton, MACHINE SETTER AND REPAIRER Other myositis, unspecified site (Primary Dx) 09/30/2024 12:30 PM EDT Treatment [address] [phone] Ap Overton, MACHINE SETTER AND REPAIRER Other myositis, unspecified site (Primary Dx) 09/28/2024 12:00 PM EDT Treatment [facility] [address] [phone] Tess Barroso, PT Other myositis, unspecified site (Primary Dx); Muscle weakness (generalized) 09/24/2024 1:00 PM EDT Treatment [address] [phone] Tess Barroso, PT Other myositis, unspecified site (Primary Dx); Muscle weakness (generalized) 09/21/2024 2:00 PM EDT Treatment [address] [phone] Ap Overton, MACHINE SETTER AND REPAIRER Other myositis, unspecified site (Primary Dx) from Last 3 Months Surgical History Surgery Date Site/Laterality Comments CHOLECYSTECTOMY 2009 PROCEDURE: OR LAPAROSCOPY SURG CHOLECYSTECTOMY APPENDECTOMY 1999 PROCEDURE: OR APPENDECTOMY SHOULDER SURGERY Right PROCEDURE: HISTORICAL SHOULDER SURGERY LEG SURGERY 2000 Right PROCEDURE: HISTORICAL LEG SURGERY; COMMENT: FIBULA APPENDECTOMY PROCEDURE:APPENDECTOMY STOMACH SURGERY PROCEDURE:STOMACH SURGERY OTHER SURGICAL HISTORY PROCEDURE:shoulder surgery Medical History Medical History Date Comments TIA (transient ischemic attack) DX:TIA (transient ischemic attack) Nicotine dependence DX:Nicotine dependence Hyperlipemia DX:Hyperlipemia ANDRA (obstructive sleep apnea) DX :ANDAR (obstructive sleep apnea) Pulmonary hypertension (CMS/ HCC [...] DX:Pulmonary embolism, bilat eral (HCC) Renal infarct (CMS/[facility] V24) DX:R enal infarct (HCC) Stroke (CMS/HCC V24, CMS/[facility] V28) DX:Stroke (HCC) Diabetes mellitus (CMS/[facility] V 24, CMS/[facility] V28) DX:Diabetes mellitus (HCC) GERD (gastroesophageal reflux [...] Years (1 of 2 - PCV) 10/18/1990 Zoster Vaccines (1 of 2) 10/18/1990 COVID-19 Vaccine (3 - Moderna risk series) 04/06/2021 03/09/2021, 02/09/2021 Colorectal Cancer Screening: Colonoscopy 04/22/2022 HIV Screening 04/22/2022 Lung Cancer Screening (Low Dose CT) 04/22/2022 Medicare Annual Wellness Visit 04/22/2022 Social Influencers of Health Screening 04/22/2022 Diabetes: Annual Urine Albumin-Creatinine Ratio (uACR) 05/04/2022 Diabetes: Blood Sugar Control Test (HGBA1C) 05/04/2022 Diabetes: Annual GFR (Glomerular Filtration Rate) 11/09/2023 11/08/2022, 11/07/2022, 11/05/2022, Additional history exists Hypertension/CHF/CAD Annual BMP Blood Test 11/09/2023 11/08/2022, 11/07/2022, 11/05/2022, Additional history exists Depression Screening 05/20/2024 DTaP,Tdap,and Td Vaccines (2 - Td or Tdap) 07/12/2024 07/12/2014 Influenza Vaccine (#1) 2025 Cholesterol Screening (Lipid Panel) 09/12/2027 09/11/2022 [...] PM EST) Yes Lien Hoang OT Note: Indep HEP w/ progressions (AAROM, progress to strength) MET R sh elevation AROM at least 120 for overhead reaching tasks Generally met, varies 115-120 depending on the day L sh elevation AROM at [id number] for overhead reaching tasks Generally met, varies [...] Insurance MEDICAID - [place] MEDICARE Care Teams Device Test Engineer Relationship Specialty Start Date End Date Lily Her MD NPI: [id number] [place] [address], [place] [id number] PCP - General Family Medicine 01/26/22
--- OUTSIDE RECORDS SUMMARY | 2024-12-14 18:56 | XMS_ITS | Clinical Summary ---
Author Organization [facility] Address [address] [place] [address] Care Team Providers Care Lens Assistant Name Role Phone Unavailable Primary Care Provider [...] ( - 2023-2 5 season) 2024 Influenza (#1) 2025 HPV Vaccine (No Doses Required) Completed Hep A Aged Out No longer eligi ble based on patient's age to complete this topic Hib Aged Out No longer eligi ble based on patient's age to complete this topic Meningococcal ACWY Aged Out No longer eligible based on patient's age to complete this topic
--- OUTSIDE RECORDS SUMMARY | 2024-12-14 18:56 | XMS_ITS | Encounter Summary ---
Author Organization [facility] Address [address] [facility] [address] [place] [phone] Phone Care Team Providers Care Hair Rooting Machine Operator Name Role Phone Lily Her MD Primary Care Provider Larry Platt MD Unavailable [phone] Encounter Details Date Type Department Care Team (Late st Contact Info) Description 01/19/2023 Transcribe Orders [facility] Specimen Processing [address] [place] [address] Tatiana Nichols [address] [place] [address] [email or web address] Social History Tobacco Use Types Packs/Day Years Used Date Smoking Tobacco: Former Cigarettes 1 20 Smokeless Tobacco: Never Alcohol Use Standard Drinks/Week Comments Not Currently 0 (1 standard drink = 0.6 oz pur e alcohol) Education Answer Date Recorded Are you interested in more education? Not on truman e 09/13/2022 Are you concerned about learning? Not on file 09/13/2022 No 09/13/2022 No 09/13/2022 Digital Access Answer Date Recorded No 10/09/2022 No 10/09/2022 Reliable internet access at home? Not on file 10/09/2022 Device with a working camera? Not on file Intimate Partner Violence Answer Date R ecorded Are you denied basic needs s uch as food, clothing, or medical care? No 10/05/2022 In the past 12 months have y ou been in a relationship with a person who hurts, threatens, or tries to control you? No 10/05/2022 Are you denied basic needs s uch as food, clothing, or medical care? No 10/05/2022 In the past 12 months have y ou been in a relationship with a person who hurts, threatens, or tries to control you? 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 Insurance Assigned Provider 12/23/22 02/23/23 documented as of this encounter Additional Source Comments The information contained in this document represents components of the legal health record. It is not the complete legal health record.[facility]
--- OUTSIDE RECORDS SUMMARY | 2024-12-14 18:56 | XMS_ITS | Clinical Summary ---
Author Organization [facility] Address [address] [place] [address] Care Team Providers Care Fur Stretcher Name Role Phone Lily Her MD Primary Care Provider [phone] Allergies No known active allergies Medications Medication [...] 79 01/26/2022 10:47 AM EDT Temperature 36.1 C (97 F) 01/26/2022 10:47 AM EDT Respiratory Rate - - Oxygen [...] 10/18/2016 Shingrix-Zoster Vaccine (1 of 2) 10/18/2021 DTap / Tdap / Td (2 - Td or Tdap) 07/12/2024 015 Influenza Vaccine (#1) 2025 Pneumococcal Vaccine Aged Out No long er eligible based on patient's age to complete this topic RSV Ped < 20 months Aged Out No longe r eligible based on patient's age to complete this topic Care Teams Fur Stretcher Relationship Specialty Start Date End Date Lily Her MD [address] [place] [address] PCP - General Family Medicine 01/26/22
--- OUTSIDE RECORDS SUMMARY | 2024-12-14 18:56 | XMS_ITS | Data Portability ---
Author Organization [place] - [facility] Address [address] [place] [address] Assessment Encounter Date Assessment Date Assessment LastModified by Organization Details LastModified Time 06/22/2024 06/22/2024 Previously referred for ear blockage which has improved. No cerumen impaction. He does have narrow ear canals. Well aerated middle ear spaces. We reviewed audiometric testing showing borderline normal hearing. Follow up as needed. [email or web address] Not available 06/22/2024 17:09:43 06/22/2024 06/22/2024 Recommendation s: Follow up with referring provider. [email or web address] Not available 06/22/2024 13:47:02 Plan of Treatment Reminders Order Date Submit Date Provider Last Modified By Organization Details Last Modified Time Details Appointments None record ed. Lab None record ed. Referral None record ed. Procedures None record ed. Surgeries None record ed. Imaging None record ed. Medication Orders None record ed. Patient TargetsNo targets recorded. Patient InstructionsNo instructions recorded. Reason for Referral None Reported. Results Created Date Observation Date Name Description Value Unit Range Abnormal Flag Note LastModifiedBy Organization Detail LastModifiedTime 06/26/19 25 audio gram No observ ation record ed. BARCODE Not Available 2024 10:59:58 Result Notes None recorded. Problems Name Problem SNOMED Code Status Onset Date Resolution Date Notes Provider Name and Address Organization Details Recorded Time Acute tonsillitis 82310555 Active 2015 Acute tonsil litis, unspec ified; Note: Date Diagno sed: 12/26/19 16 9:51 AM (J03.9 0) Not Available [employer] 4 03:25:17 Sensorineural hearing loss 95626883 Active 2024 Summer barfield [place] - [facility] 5 13:47:22 Sensorineural hearing loss of bilateral ears 600206487 Active 2024 MAGY DAMIAN MD [address] [place] [address],[address], [address] , [facility] - [facility] 5 17:08:09 Problem Notes None recorded. Procedures Surgical History Date Name Laterality Status Provider Name and Address Organization Details Recorded Time 06/22/19 Comp Audio with Tymps - 09703 & 24913 completed Summer Booker [place] - [facility] 06/22/2024 13:47:10 Cholecystectomy completed MAGY DAMIAN MD [address] [place] [address],[address], [address], [facility] - [facility] 06/22/2024 17:05:44 Appendectomy completed MAGY DAMIAN MD [address] [place] [address],[address], [address], [facility] - [facility] 06/22/2024 17:06:03 Imaging Results None recorded. Procedure Notes None recorded. Medical Equipment None Reported. Allergies Allergen ID Allergen Name Allergen Category Reaction Reaction Severity Criticality Documentation Date Start Date Code Code System Note Provider Name and Address Organization Details Recorded Time 668110 Product containin g 3-hydroxy -3-methyl glutaryl- coenzyme A reductase inhibitor (product) medicatio n Not available Not available Not available 06/22/2024 03195 009 SNOMED Lien Chase barfield [place] [facility] 13:55:02 Medications Name Sig Start Date Stop Date Status Note LastModified by Organization Details LastModified Time gabapenti n 400 mg capsule TAKE 1 CAPSULE BY MOUTH 3 TIMES A DAY active Not Available Not Available No t Available clindamyc in HCl 150 mg capsule 06/22 completed Medicati on ID: [id number] D uration Value: 10 Brand Name: clindamy arash HCl Send Method: E-Prescr ibed Sub s Allowed: subs OK Medic ationGen ericName : clindamy arash HCl Not Available Not Available Not Available warfarin 2.5 mg tablet TAKE 1 TABLET BY MOUTH DAILY,IN STR: DIRECTED BY THE [facility] active Not Available Not Available No t Available azathiopr ine 50 mg tablet TAKE 3 TABLETS BY MOUTH EVERY DAY active Not Available Not Available No t Available omeprazol e 40 mg capsule,d elayed release TAKE 1 CAPSULE BY MOUTH EVERY DAY active Not Available Not Available No t Available ofloxacin 0.3 % ear drops INSTILL 5 DROPS INTO BOTH EARS 2 TIMES A DAY, X7 DAYS 06/22 completed Not Available Not Available Not Available oxycodone -acetamin ophen 10 mg-325 mg tablet TAKE 1 TABLET BY MOUTH 4 TIMES A DAY NEEDED FOR SEVERE PAIN FOR 7 DAYS active Not Available Not Available No t Available warfarin 5 mg tablet TAKE 1 TABLET BY MOUTH DAILY active Not Available Not Available No t Available losartan 25 mg tablet TAKE 1 TABLET BY MOUTH EVERY DAY active Not Available Not Available No t Available Ear Drops (carbamid e peroxide) 6.5 % INSTILL 5 DROPS BOTH EARS, 2 TIMES A DAY,X7 DAYS 06/22 completed Not Available Not Available Not Available gabapenti n 300 mg capsule TAKE 3 CAPSULES BY MOUTH 3 TIMES A DAY 06/22 completed Not Available Not Available Not Available pravastat in 20 mg tablet 06/22 completed Medicati on ID: [id number] D uration Value: 30 Brand Name: pravasta tin Send Method: E-Prescr ibed Sub s Allowed: subs OK Speci al Instruct ion: TAKE 1 TABLET BY MOUTH EVERY DAY Medi cationGe nericNam e: pravasta tin Not Available Not Available Not Available oxybutyni n chloride 5 mg tablet TAKE 1 TABLET BY MOUTH EVERY DAY active Not Available Not Available No t Available metoprolo l tartrate 25 mg tablet TAKE 1 TABLET BY MOUTH TWICE A DAY active Not Available Not Available No t Available duloxetin e 30 mg capsule,d elayed release TAKE 1 CAPSULE BY MOUTH EVERY DAY 06/22 completed Not Available Not Available Not Available duloxetin e 60 mg capsule,d elayed release TAKE 1 CAPSULE BY MOUTH EVERY DAY active Not Available Not Available No t Available Vitals Date Recorded Body height Body mass index (BMI) Body weight Provider Name and Address Organization Details Last Updated DateTime 06/22/2024 182.88 cm 57.6 kg/m2 385044.76 g Lien Stone [place] - [facility] 06/22/2024 14:15:54 Social History None recorded. Functional Status None recorded. Mental Status None recorded. Family History Nothing Reported. Medical History Condition Response Diabetes Y Arthritis Y Stroke Y GERD/Reflux Y Past Encounters Encounter ID Performer Location Encounter Start Date Encounter Closed Date Diagnosis/Indication Diagnosis SNOMED-CT Code Diagnosis ICD10 Code Diagnosis Note [id number] MAGY DAMIAN MD [facility] [address] [address] 06/22/2024 13:15:52 06/22/2024 16:41:09 Sensorineural hearing loss 30120008 H90.41 Audiologic al evaluation results: Right ear: Essentiall y normal through 4 kHz sloping to a mild sensorineu ral hearing loss with excellent word recognitio n. Left ear: Normal hearing with excellent word recognitio n. Tympanomet ry: Right Ear:Type A Left Ear:Type A [id number] MICHAEL LOBO [facility] [address] [address] 06/22/2024 13:46:33 06/23/2024 09:01:55 Sensorineural hearing loss 11607340 H90.41 Audiologic al evaluation results: Right ear: Essentiall y normal through 4 kHz sloping to a mild sensorineu ral hearing loss with excellent word recognitio n. Left ear: Normal hearing with excellent word recognitio n. Tympanomet ry: Right Ear:Type A Left Ear:Type A Health Concerns Section Related Observation LastModified by Organization Detai ls LastModified Time None Recorded Concern Status LastModified by Organization Details LastModified Time None Recorded Advance Directives Directive None Recorded Payers Insurance Date Sequence Insurance Name Policy Number Policy Castorena Covered Member ID Castorena Member ID Guarantor Name 06/22/2024 1 [facility] [id number] Lawrence Santoyo [id number] Lawrence Santoyo 06/22/2024 1 [place] [employer] Lawrence Santoyo [id number] Lawrence Santoyo 08/20/2024 2 [place] [facility] Lawrence Santoyo [id number] Lawrence Santoyo
--- OUTSIDE RECORDS SUMMARY | 2024-12-14 18:56 | XMS_ITS | Clinical Summary ---
Author Organization [facility] Address [address] [facility] [address] [place] [address] Phone Care Team Providers Care Senior Design Engineering Specialist Name Role Phone Lily Her MD Primary Care Provider [phone] Allergies Active Allergy Reactions Criticality Noted Date [...] Diabetes: Visual Foot Exam 12/22/2020 Influenza Vaccine (#1) 2025 [place] Care Teams Senior Design Engineering Specialist Relationship Specialty Start Date End Date Lily Her MD [address] [place] [address] PCP - General Family Medicine 05/22/21
== END 2024-12-14 18:49 | disposition home or self-care (01) ==
LOC: HO.MRI 18:48
PROVIDERS: Visit Provider Student in an Organized Health Care Education/Training Program
DX: Z13.89 Encounter for screening for other disorder (principal)

== ENCOUNTER → 2025-01-22 14:56 | Outpatient (AMB) | payer MEDICARE, MEDICAID, SELFPAY ==
--- OUTSIDE RECORDS SUMMARY | 2024-03-10 15:00 | XMS_ITS | Encounter Summary ---
Author Organization [place] [address] Care Team Providers Care Compound Mixer Name Role Phone Lily Her MD Primary Care Provider [phone] Encounter Details Date Type Department Care Team (Late st Contact Info) Description 03/10/2024 3:00 PM EDT Hospital Encounter TH HISTORIC ENCOUNTERS EASTERN CONVERSION ONLY Taryn Maldonado, EXCEPTIONAL CHILDREN TEACHER [address] [place] [address] Social History Tobacco Use Types Packs/Day Years Used Date Smoking Tobacco: Former Cigarettes Q uit: 11/07/2020 Smokeless Tobacco: Never Alcohol [...] General Improving(11/2023 12:30 PM EST) Yes Lien Hoang OT Note: Improved BUE strength SHORT TERM (8 visits) General Improving(11/2023 12:30 PM EST) Yes Viktor, Lien G, OT Note: Indep HEP w/ progressions (AAROM, progress to strength) MET R sh elevation AROM at least 120 for overhead reaching tasks Generally met, varies 115-120 depending on the day L sh elevation AROM at [id number] for overhead reaching tasks Generally met, varies [...] on filedocumented in this encounter Care Teams Compound Mixer Relationship Specialty Start Date End Date Lily Her MD [address] [place] [address] [phone] PCP - General Family Medicine 01/26/22 documented as of this encounter
--- OUTSIDE RECORDS SUMMARY | 2024-03-10 16:53 | XMS_ITS | Encounter Summary ---
Author Organization [place] [address] Care Team Providers Care Proof Sorter Name Role Phone Lily Her MD Primary Care Provider [phone] Encounter Details Date Type Department Care Team (Late st Contact Info) Description 03/10/2024 4:53 PM EDT Hospital Encounter TH HISTORIC ENCOUNTERS EASTERN CONVERSION ONLY Taryn Maldonado, INSURANCE LOSS CONTROL SURVEYOR [address] [place] [address] Social History Tobacco Use Types Packs/Day Years [...] the day L sh elevation AROM at [id number] for overhead reaching tasks Generally met, varies [...] on filedocumented in this encounter Care Teams Proof Sorter Relationship Specialty Start Date End Date Lily Her MD [address] [place] [address] [phone] PCP - General Family Medicine 01/26/22 documented as of this encounter
--- OUTSIDE RECORDS SUMMARY | 2025-01-22 14:58 | XMS_ITS | Encounter Summary ---
Author Organization [facility] Address [address] [facility] [address] [place] [address] Phone Care Team Providers Care Development Rep Name Role Phone Lily Her MD Primary Care Provider Larry Platt MD Unavailable [phone] Encounter Details Date Type Department Care Team (Late st Contact Info) Description 01/19/2023 Transcribe Orders [facility] Specimen Processing [address] [place] [address] Tatiana Nichols 81 [place] [address] [email or web address] Social History Tobacco Use Types Packs/Day Years [...] documented as of this encounter Care Teams Development Rep Relationship Specialty Start Date End Date Lily Her MD [address] [place] [address] PCP - General Family Medicine 09/05/22 Larry Platt MD [address] [place] [address] [email or web address] Insurance Assigned Provider 12/23/22 02/23/23 documented as of this encounter Additional Source Comments The information contained in this document represents components of the legal health record. It is not the complete legal health record.[facility]
--- OUTSIDE RECORDS SUMMARY | 2025-01-22 14:58 | XMS_ITS | Encounter Summary ---
Author Organization [facility] Address [address] [facility] [address] [place] [address] Phone Care Team Providers Care Curatorial Assistant Name Role Phone Lily Her MD Primary Care Provider Larry Platt MD Unavailable [phone] Encounter Details Date Type Department Care Team (Late st Contact Info) Description 12/24/2022 Transcribe Orders [facility] Specimen Processing 81 [place] [address] [place] Social History Tobacco Use Types Packs/Day Years [...] documented as of this encounter Care Teams Curatorial Assistant Relationship Specialty Start Date End Date Lily Her MD [address] [place] [address] PCP - General Family Medicine 09/05/22 Larry Platt MD [address] [place] [address] [email or web address] Insurance Assigned Provider 12/23/22 02/23/23 documented as of this encounter Additional Source Comments The information contained in this document represents components of the legal health record. It is not the complete legal health record.[facility]
--- OUTSIDE RECORDS SUMMARY | 2025-01-22 14:58 | XMS_ITS | Clinical Summary ---
Author Organization [facility] Address [address] [place] [address] Phone Care Team Providers Care Head Stock Operator Name Role Phone Lily Her MD Primary Care Provider [phone] Active Problems Problem Noted Date Diagnosed Date Chronic right shoulder pain 03/26/2024 Chronic left shoulder pain 03/26/2024 Surgical History Surgery Date Site/Laterality Comments CHOLECYSTECTOMY 2009 PROCEDURE: DC LAPAROSCOPY SURG CHOLECYSTECTOMY APPENDECTOMY 1999 PROCEDURE: DC APPENDECTOMY SHOULDER SURGERY Right PROCEDURE: HISTORICAL SHOULDER [...] DX:Pulmonary embolism, bilat eral (HCC) Renal infarct ([facility] V24) DX:R enal infarct (HCC) Stroke ([facility] V24, [facility] V28) DX:Stroke (HCC) Diabetes mellitus ([facility] V 24, [facility] V28) DX:Diabetes mellitus (HCC) GERD (gastroesophageal reflux [...] the day L sh elevation AROM at [id number] for overhead reaching tasks Generally met, varies [...] Insurance [place] - [place] MEDICARE Care Teams Head Stock Operator Relationship Specialty Start Date End Date Lily Her MD [address] [place] [phone] PCP - General Family Medicine 01/26/22
--- OUTSIDE RECORDS SUMMARY | 2025-01-22 14:58 | XMS_ITS | Encounter Summary ---
Author Organization [facility] Address [address] [place] [address] Phone Care Team Providers Care Geophysical Laboratory Chief Name Role Phone Lily Her MD Primary Care Provider Larry Platt MD Unavailable [phone] Encounter Details Date Type Department Care Team (Late st Contact Info) Description 12/21/2022 Transcribe Orders [facility] Specimen Processing [address] [place] [address] Brigida Garcia NP [address] [place] [address] Social History Tobacco Use Types Packs/Day Years [...] documented as of this encounter Care Teams Geophysical Laboratory Chief Relationship Specialty Start Date End Date Lily Her MD [address] [place] [address] PCP - General Family Medicine 09/05/22 Larry Platt MD [address] [place] [address] [email or web address] Insurance Assigned Provider 12/23/22 02/23/23 documented as of this encounter Additional Source Comments The information contained in this document represents components of the legal health record. It is not the complete legal health record.[facility]
--- OUTSIDE RECORDS SUMMARY | 2025-01-22 14:58 | XMS_ITS | Clinical Summary ---
Author Organization [facility] Address [address] [facility] [address] [place] [address] Phone Care Team Providers Care Biology Faculty Member Name Role Phone Lily Her MD Primary Care Provider [phone] Allergies Active Allergy Reactions Criticality Noted Date [...] 12/22/2020 Influenza Vaccine (#1) 2025 [place] Care Teams Biology Faculty Member Relationship Specialty Start Date End Date Lily Her MD [address] [place] [address] PCP - General Family Medicine 05/22/21
--- OUTSIDE RECORDS SUMMARY | 2025-01-22 14:58 | XMS_ITS | Encounter Summary ---
Author Organization [facility] Address [address] [facility] [address] [place] [address] Phone Care Team Providers Care Office Rental Clerk Name Role Phone Lily Her MD Primary Care Provider Larry Platt MD Unavailable [phone] Encounter Details Date Type Department Care Team (Late st Contact Info) Description 02/04/[address] [facility] Specimen Processing 81 [place] [address] Viviana Mock [address] [place] [address] [email or web address] Social History Tobacco Use Types Packs/Day Years [...] documented as of this encounter Care Teams Office Rental Clerk Relationship Specialty Start Date End Date Lily Her MD [address] [place] [address] PCP - General Family Medicine 09/05/22 Larry Platt MD [address] [place] [address] [email or web address] Insurance Assigned Provider 12/23/22 02/23/23 documented as of this encounter Additional Source Comments The information contained in this document represents components of the legal health record. It is not the complete legal health record.[facility]
--- OUTSIDE RECORDS SUMMARY | 2025-01-22 14:58 | XMS_ITS | Encounter Summary ---
Author Organization [facility] Address [address] [place] [address] Phone Care Team Providers Care Fitness And Wellness Director Name Role Phone Lily Her MD Primary Care Provider Larry Platt MD Unavailable [phone] Encounter Details Date Type Department Care Team (Late st Contact Info) Description 01/28/2023 Transcribe Orders [facility] Specimen Processing [address] [place] [address] Brigida Garcia NP [address] [place] [address] Social History Tobacco Use Types Packs/Day Years [...] documented as of this encounter Care Teams Fitness And Wellness Director Relationship Specialty Start Date End Date Lily Her MD [address] [place] [address] PCP - General Family Medicine 09/05/22 Larry Platt MD [address] [place] [address] [email or web address] Insurance Assigned Provider 12/23/22 02/23/23 documented as of this encounter Additional Source Comments The information contained in this document represents components of the legal health record. It is not the complete legal health record.[facility]
--- OUTSIDE RECORDS SUMMARY | 2025-01-22 14:58 | XMS_ITS | Encounter Summary ---
Author Organization [facility] Address [address] [place] [address] Phone Care Team Providers Care Customer Account Technician Name Role Phone Lily Her MD Primary Care Provider Encounter Details Date Type Department Care Team ([facility] st Contact Info) Description 08/26/2023 Transcribe Orders [facility] Specimen Processing 81 [place] [address] Brigida Garcia NP [address] [place] [address] Social History Tobacco Use Types Packs/Day Years [...] VRE 09/05/2022 09/05/2022 09/05/2023 1:21 AM EDT Assessment Noted Time PHQ-2 Depression Total Score: 0 06/29/19 24 8:57 AM EST documented as of this encounter Care Teams Customer Account Technician Relationship Specialty Start Date End Date Lily Her MD [address] [place] [address] PCP - General Family Medicine 09/05/22 documented as of this encounter Additional Source Comments The information contained in this document represents components of the legal health record. It is not the complete legal health record.[facility]
--- OUTSIDE RECORDS SUMMARY | 2025-01-22 14:58 | XMS_ITS | Encounter Summary ---
Author Organization [facility] Address [address] [employer] [facility] [address] [place] [address] Phone Care Team Providers Care Hide Curer Name Role Phone Lily Her MD Primary Care Provider Larry Platt MD Unavailable [phone] Encounter Details Date Type Department Care Team (Late st Contact Info) Description 01/23/2023 Transcribe Orders [facility] Specimen Processing 81 [place] [address] Viviana Mock 81 [place] [address] [email or web address] Social History Tobacco Use [...] documented as of this encounter Care Teams Hide Curer Relationship Specialty Start Date End Date Lily Her MD [address] [place] [address] PCP - General Family Medicine 09/05/22 Larry Platt MD [address] [place] [address] [email or web address] Insurance Assigned Provider 12/23/22 02/23/23 documented as of this encounter Additional Source Comments The information contained in this document represents components of the legal health record. It is not the complete legal health record.[facility]
--- OUTSIDE RECORDS SUMMARY | 2025-01-22 14:58 | XMS_ITS | Clinical Summary ---
Author Organization [facility] Address [address] [place] [address] Care Team Providers Care Animal Trapper Name Role Phone Lily Her MD Primary Care Provider [phone] Allergies No known active allergies Medications Medication [...] age to complete this topic Care Teams Animal Trapper Relationship Specialty Start Date End Date Lily Her MD [address] [place] [address] PCP - General Family Medicine 01/26/22
--- OUTSIDE RECORDS SUMMARY | 2025-01-22 14:59 | XMS_ITS | Encounter Summary ---
Author Organization [facility] Address [address] [place] [address] Phone Care Team Providers Care Creative Designer Name Role Phone Lily Her MD Primary Care Provider Larry Platt MD Unavailable [phone] Encounter Details Date Type Department Care Team (Late st Contact Info) Description 12/31/2022 Transcribe Orders [facility] Specimen Processing [address] [place] [address] Mary Cheng [address] [place] [address] Social History Tobacco Use Types Packs/Day Years [...] documented as of this encounter Care Teams Creative Designer Relationship Specialty Start Date End Date Lily Her MD [address] [place] [address] PCP - General Family Medicine 09/05/22 Larry Platt MD [address] [place] [address] [email or web address] Insurance Assigned Provider 12/23/22 02/23/23 documented as of this encounter Additional Source Comments The information contained in this document represents components of the legal health record. It is not the complete legal health record.[facility]
--- OUTSIDE RECORDS SUMMARY | 2025-01-22 14:59 | XMS_ITS | Encounter Summary ---
Author Organization [facility] Address [address] [employer] [facility] [address] [place] [address] Phone Care Team Providers Care Tick Eradicator Name Role Phone Lily Her MD Primary Care Provider Larry Platt MD Unavailable [phone] Encounter Details Date Type Department Care Team (Late st Contact Info) Description 11/13/2022 Transcribe Orders [facility] Specimen Processing [address] [place] [address] Viviana Mock [address] [place] [address] [email or web address] Social History Tobacco [...] documented as of this encounter Care Teams Tick Eradicator Relationship Specialty Start Date End Date Lily Her MD [address] [place] [address] PCP - General Family Medicine 09/05/22 Larry Platt MD [address] [place] [address] [email or web address] Insurance Assigned Provider 12/23/22 02/23/23 documented as of this encounter Additional Source Comments The information contained in this document represents components of the legal health record. It is not the complete legal health record.[facility]
--- OUTSIDE RECORDS SUMMARY | 2025-01-22 14:59 | XMS_ITS | Encounter Summary ---
Author Organization [facility] Address [address] [facility] [address] [place] [address] Phone Care Team Providers Care Cow Washer Name Role Phone Lily Her MD Primary Care Provider Encounter Details Date Type Department Care Team (Late st Contact Info) Description 05/21/2023 Transcribe Orders [facility] Specimen Processing [address] [place] [address] [place] Social History Tobacco Use Types Packs/Day [...] documented as of this encounter Care Teams Cow Washer Relationship Specialty Start Date End Date Lily Her MD [address] [place] [address] PCP - General Family Medicine 09/05/22 documented as of this encounter Additional Source Comments The information contained in this document represents components of the legal health record. It is not the complete legal health record.[facility]
--- OUTSIDE RECORDS SUMMARY | 2025-01-22 14:59 | XMS_ITS | Encounter Summary ---
Author Organization [facility] Address [address] [facility] [address] [place] [address] Phone Care Team Providers Care Decorating Consultant Name Role Phone Lily Her MD Primary Care Provider Larry Platt MD Unavailable [phone] Encounter Details Date Type Department Care Team (Late st Contact Info) Description 12/07/[address] [facility] Specimen Processing [address] [place] [address] Kalin Arango [address] [place] [address] Social History Tobacco Use Types Packs/Day Years [...] documented as of this encounter Care Teams Decorating Consultant Relationship Specialty Start Date End Date Lily Her MD [address] [place] [address] PCP - General Family Medicine 09/05/22 Larry Platt MD [address] [place] [address] [email or web address] Insurance Assigned Provider 12/23/22 02/23/23 documented as of this encounter Additional Source Comments The information contained in this document represents components of the legal health record. It is not the complete legal health record.[facility]
--- OUTSIDE RECORDS SUMMARY | 2025-01-22 14:59 | XMS_ITS | Encounter Summary ---
Author Organization [facility] Address [address] [facility] [facility] [address] [place] [address] Phone Care Team Providers Care Defense Attorney Name Role Phone Lily Her MD Primary Care Provider Larry Platt MD Unavailable [phone] Encounter Details Date Type Department Care Team (Late st Contact Info) Description 12/05/2022 Transcribe Orders [facility] Specimen Processing [address] [place] [address] Kalin Arango [address] [place] [address] Social History Tobacco Use Types Packs/Day Years [...] documented as of this encounter Care Teams Defense Attorney Relationship Specialty Start Date End Date Lily Her MD [address] [place] [address] PCP - General Family Medicine 09/05/22 Larry Platt MD [address] [place] [address] [email or web address] Insurance Assigned Provider 12/23/22 02/23/23 documented as of this encounter Additional Source Comments The information contained in this document represents components of the legal health record. It is not the complete legal health record.[facility]
--- OUTSIDE RECORDS SUMMARY | 2025-01-22 14:59 | XMS_ITS | Encounter Summary ---
Author Organization [facility] Address [address] [place] [address] Phone Care Team Providers Care Floor Installation Mechanic Name Role Phone Lily Her MD Primary Care Provider Larry Platt MD Unavailable [phone] Encounter Details Date Type Department Care Team (Late st Contact Info) Description 12/18/2022 Transcribe Orders [facility] Specimen Processing [address] [place] [address] Brigida Garcia NP [address] [place] [address] Social History Tobacco Use Types Packs/Day Years [...] documented as of this encounter Care Teams Floor Installation Mechanic Relationship Specialty Start Date End Date Lily Her MD [address] [place] [address] PCP - General Family Medicine 09/05/22 Larry Platt MD [address] [place] [address] [email or web address] Insurance Assigned Provider 12/23/22 02/23/23 documented as of this encounter Additional Source Comments The information contained in this document represents components of the legal health record. It is not the complete legal health record.[facility]
--- OUTSIDE RECORDS SUMMARY | 2025-01-22 14:59 | XMS_ITS | Encounter Summary ---
Author Organization [facility] Address [address] [employer] [facility] [address] [place] [address] Phone Care Team Providers Care Tail Worker Name Role Phone Lily Her MD Primary Care Provider Larry Platt MD Unavailable [phone] Encounter Details Date Type Department Care Team (Late st Contact Info) Description 12/08/2022 Transcribe Orders [facility] Specimen Processing [address] [place] [address] Kalin Aarngo 81 [place] [address] Social History Tobacco Use Types Packs/Day Years [...] documented as of this encounter Care Teams Tail Worker Relationship Specialty Start Date End Date Lily Her MD [address] [place] [address] PCP - General Family Medicine 09/05/22 Larry Platt MD [address] [place] [address] [email or web address] Insurance Assigned Provider 12/23/22 02/23/23 documented as of this encounter Additional Source Comments The information contained in this document represents components of the legal health record. It is not the complete legal health record.[facility]
--- OUTSIDE RECORDS SUMMARY | 2025-01-22 14:59 | XMS_ITS | Encounter Summary ---
Author Organization [facility] Address [address] [employer] [facility] [address] [place] [address] Phone Care Team Providers Care Seafood Processor Name Role Phone Lily Her MD Primary Care Provider Larry Platt MD Unavailable [phone] Encounter Details Date Type Department Care Team (Late st Contact Info) Description 11/30/2022 Transcribe Orders [facility] Specimen Processing [address] [place] [address] Viviana Mock [address] [place] [address] [email or web address] Social History Tobacco Use Types Packs/Day Years [...] documented as of this encounter Care Teams Seafood Processor Relationship Specialty Start Date End Date Lily Her MD [address] [place] [address] PCP - General Family Medicine 09/05/22 Larry Platt MD [address] [place] [address] [email or web address] Insurance Assigned Provider 12/23/22 02/23/23 documented as of this encounter Additional Source Comments The information contained in this document represents components of the legal health record. It is not the complete legal health record.[facility]
--- OUTSIDE RECORDS SUMMARY | 2025-01-22 14:59 | XMS_ITS | Encounter Summary ---
Author Organization [facility] Address [address] [employer] [facility] [address] [place] [address] Phone Care Team Providers Care Creative Manager Name Role Phone Lily Her MD Primary Care Provider Larry Platt MD Unavailable [phone] Encounter Details Date Type Department Care Team (Late st Contact Info) Description 01/07/2023 Transcribe Orders [facility] Specimen Processing [address] [place] [address] Viviana Mock 81 [place] [address] [email or web address] Social History Tobacco Use [...] as of this encounter Care Teams Creative Manager Relationship Specialty Start Date End Date Lily Her MD [address] [place] [address] PCP - General Family Medicine 09/05/22 Larry Platt MD [address] [place] [address] [email or web address] Insurance Assigned Provider 12/23/22 02/23/23 documented as of this encounter Additional Source Comments The information contained in this document represents components of the legal health record. It is not the complete legal health record.[facility]
--- OUTSIDE RECORDS SUMMARY | 2025-01-22 14:59 | XMS_ITS | Encounter Summary ---
Author Organization [facility] Address [address] [employer] [facility] [address] [place] [address] Phone Care Team Providers Care Political Scientist Name Role Phone Lily Her MD Primary Care Provider Larry Platt MD Unavailable [phone] Encounter Details Date Type Department Care Team (Late st Contact Info) Description 12/10/2022 Transcribe Orders [facility] Specimen Processing [address] [place] [address] Tatiana Nichols 81 [place] [address] [email or web address] Social History Tobacco Use Types Packs/Day Years [...] documented as of this encounter Care Teams Political Scientist Relationship Specialty Start Date End Date Lily Her MD [address] [place] [address] PCP - General Family Medicine 09/05/22 Larry Platt MD [address] [place] [address] [email or web address] Insurance Assigned Provider 12/23/22 02/23/23 documented as of this encounter Additional Source Comments The information contained in this document represents components of the legal health record. It is not the complete legal health record.[facility]
--- OUTSIDE RECORDS SUMMARY | 2025-01-22 14:59 | XMS_ITS | Encounter Summary ---
Author Organization [facility] Address [address] [place] [address] Phone Care Team Providers Care Soldering Machine Operator Name Role Phone Lily Her MD Primary Care Provider Larry Platt MD Unavailable [phone] Encounter Details Date Type Department Care Team (Late st Contact Info) Description 11/09/2022 Transcribe Orders [facility] Specimen Processing [address] [place] [address] Brigida Garcia, ROBERT [address] [place] [address] Social History Tobacco Use Types Packs/Day Years [...] documented as of this encounter Care Teams Soldering Machine Operator Relationship Specialty Start Date End Date Lily Her MD 24 [place] [address] PCP - General Family Medicine 09/05/22 Larry Platt MD [address] [place] [address] [email or web address] Insurance Assigned Provider 12/23/22 02/23/23 documented as of this encounter Additional Source Comments The information contained in this document represents components of the legal health record. It is not the complete legal health record.[facility]
--- OUTSIDE RECORDS SUMMARY | 2025-01-22 14:59 | XMS_ITS | Encounter Summary ---
Author Organization [facility] Address [address] [place] [address] Phone Care Team Providers Care Bark Tanner Name Role Phone Lily Her MD Primary Care Provider Larry Platt MD Unavailable [phone] Encounter Details Date Type Department Care Team (Late st Contact Info) Description 12/04/2022 Transcribe Orders [facility] Specimen Processing [address] [place] [address] Mary Cheng 81 [place] [address] Social History Tobacco Use Types Packs/Day Years [...] documented as of this encounter Care Teams Bark Tanner Relationship Specialty Start Date End Date Lily Her MD 24 [place] [address] PCP - General Family Medicine 09/05/22 Larry Platt MD [address] [place] [address] [email or web address] Insurance Assigned Provider 12/23/22 02/23/23 documented as of this encounter Additional Source Comments The information contained in this document represents components of the legal health record. It is not the complete legal health record.[facility]
--- OUTSIDE RECORDS SUMMARY | 2025-01-22 14:59 | XMS_ITS | Encounter Summary ---
Author Organization [facility] Address [address] [facility] [address] [place] [address] Phone Care Team Providers Care Hadoop Java Developer Name Role Phone Lily Her MD Primary Care Provider Encounter Details Date Type Department Care Team ([facility] st Contact Info) Description 07/26/2023 Transcribe Orders [facility] Specimen Processing 81 [place], [place] [phone] Viviana Mock [address] [place] [address] [email or web address] Social History Tobacco Use Types Packs/Day Years [...] documented as of this encounter Care Teams Hadoop Java Developer Relationship Specialty Start Date End Date Lily Her MD [address] [place] [address] PCP - General Family Medicine 09/05/22 documented as of this encounter Additional Source Comments The information contained in this document represents components of the legal health record. It is not the complete legal health record.[facility]
--- OUTSIDE RECORDS SUMMARY | 2025-01-22 14:59 | XMS_ITS | Encounter Summary ---
Author Organization [facility] Address [address] [employer] [facility] [address] [place] [address] Phone Care Team Providers Care Oysterman Name Role Phone Lily Her MD Primary Care Provider Encounter Details Date Type Department Care Team (Late st Contact Info) Description 04/08/2023 Transcribe Orders [facility] Specimen Processing [address] [place] [address] Maria De Jesus Reina MD [address] [place] [address] [email or web address] Social History Tobacco Use Types Packs/Day Years [...] documented as of this encounter Care Teams Oysterman Relationship Specialty Start Date End Date Lily Her MD [address] [place] [address] PCP - General Family Medicine 09/05/22 documented as of this encounter Additional Source Comments The information contained in this document represents components of the legal health record. It is not the complete legal health record.[facility]
--- OUTSIDE RECORDS SUMMARY | 2025-01-22 15:00 | XMS_ITS | Encounter Summary ---
Author Organization [facility] Address [address] [facility] [address] [place] [address] Phone Care Team Providers Care Recreation Facility Manager Name Role Phone Lily Her MD Primary Care Provider Encounter Details Date Type Department Care Team ([facility] st Contact Info) Description 02/26/2023 Transcribe Orders [facility] Specimen Processing [address] [place] [address] Viviana Mock [address] [place] [address] [email or web address] Social History Tobacco [...] documented as of this encounter Care Teams Recreation Facility Manager Relationship Specialty Start Date End Date Lily Her MD [address] [place] [address] PCP - General Family Medicine 09/05/22 documented as of this encounter Additional Source Comments The information contained in this document represents components of the legal health record. It is not the complete legal health record.[facility]
--- OUTSIDE RECORDS SUMMARY | 2025-01-22 15:00 | XMS_ITS | Encounter Summary ---
Author Organization [facility] Address [address] [place] [address] Phone Care Team Providers Care Finger Cobbler Name Role Phone Lily Her MD Primary Care Provider Larry Platt MD Unavailable [phone] Encounter Details Date Type Department Care Team (Late st Contact Info) Description 11/27/2022 Transcribe Orders [facility] Specimen Processing [address] [place] [address] Brigida Garcia NP [address] [place] [address] Social History Tobacco Use Types Packs/Day Years [...] documented as of this encounter Care Teams Finger Cobbler Relationship Specialty Start Date End Date Lily Her MD [address] [place] [address] PCP - General Family Medicine 09/05/22 Larry Platt MD [address] [place] [address] [email or web address] Insurance Assigned Provider 12/23/22 02/23/23 documented as of this encounter Additional Source Comments The information contained in this document represents components of the legal health record. It is not the complete legal health record.[facility]
--- OUTSIDE RECORDS SUMMARY | 2025-01-22 15:00 | XMS_ITS | Encounter Summary ---
Author Organization [facility] Address [address] [facility] [address] [place] [address] Phone Care Team Providers Care Endoscopy Support Specialist Name Role Phone Lily Her MD Primary Care Provider Larry Platt MD Unavailable [phone] Encounter Details Date Type Department Care Team (Late st Contact Info) Description 09/24/2022 Procedure Pass [facility] Lunder 6 [facility], 6th [place] [address] Social History Tobacco Use Types Packs/Day Years Used Date Smoking Tobacco: Never Assessed Education Answer Date Recorded Are you interested in more education? Not on truman e 09/13/2022 Are you concerned about learning? Not on file 09/13/2022 No 09/13/2022 No 09/13/2022 Sex and Gender Information Value Date Recorded [...] documented as of this encounter Care Teams Endoscopy Support Specialist Relationship Specialty Start Date End Date Lily Her MD [address] [place] [address] PCP - General Family Medicine 09/05/22 Larry Platt MD [address] [place] [address] [email or web address] Insurance Assigned Provider 12/23/22 02/23/23 documented as of this encounter Additional Source Comments The information contained in this document represents components of the legal health record. It is not the complete legal health record.[facility]
--- OUTSIDE RECORDS SUMMARY | 2025-01-22 15:00 | XMS_ITS | Encounter Summary ---
Author Organization [facility] Address [address] [facility] [address] [place] [address] Phone Care Team Providers Care Family Nurse Name Role Phone Lily Her MD Primary Care Provider Encounter Details Date Type Department Care Team (Late st Contact Info) Description 09/16/2023 Transcribe Orders [facility] Specimen Processing 81 [place] [address] Lien Ortiz [address] [place] [address] Social History Tobacco Use Types Packs/Day Years [...] filedocumented in this encounter Additional Health Concerns Assessment Noted Time PHQ-2 Depression Total Score: 0 06/29/19 24 8:57 AM EST documented as of this encounter Care Teams Family Nurse Relationship Specialty Start Date End Date Lily Her MD [address] [place] [address] PCP - General Family Medicine 09/05/22 documented as of this encounter Additional Source Comments The information contained in this document represents components of the legal health record. It is not the complete legal health record.[facility]
--- OUTSIDE RECORDS SUMMARY | 2025-01-22 15:00 | XMS_ITS | Encounter Summary ---
Author Organization [facility] Address [address] [facility] [address] [place] [address] Phone Care Team Providers Care Senior Vice President & General Counsel Name Role Phone Lily Her MD Primary Care Provider Encounter Details Date Type Department Care Team (Late st Contact Info) Description 04/16/2023 Transcribe Orders [facility] Specimen Processing [address] [place] [address] Maria De Jesus Reina MD [address] [place] [address] [email or web address] Social History Tobacco Use Types Packs/Day [...] documented as of this encounter Care Teams Senior Vice President & General Counsel Relationship Specialty Start Date End Date Lily Her MD [address] [place] [address] PCP - General Family Medicine 09/05/22 documented as of this encounter Additional Source Comments The information contained in this document represents components of the legal health record. It is not the complete legal health record.[facility]
--- OUTSIDE RECORDS SUMMARY | 2025-01-22 15:00 | XMS_ITS ---
Author Name [facility] Organization Unknown Care Team Organization Name Specialty Phone Email Start Date End Da te [facility] Adalberto Brigdes Primary [facility] 03/27/2022 01/06/20 24
--- OUTSIDE RECORDS SUMMARY | 2025-01-22 15:00 | XMS_ITS | Encounter Summary ---
Author Organization [facility] Address [address] [facility] [address] [place] [address] Phone Care Team Providers Care Environmental Field Services Technician Name Role Phone Lily Her MD Primary Care Provider Larry Platt MD Unavailable [phone] Encounter Details Date Type Department Care Team (Late st Contact Info) Description 09/28/2022 Procedure Pass [facility] ENDO DEPT 55 [facility], 4th [place] [address] Social History Tobacco Use Types Packs/Day Years [...] documented as of this encounter Care Teams Environmental Field Services Technician Relationship Specialty Start Date End Date Lily Her MD [address] [place] [address] PCP - General Family Medicine 09/05/22 Larry Platt MD [address] [place] [address] [email or web address] Insurance Assigned Provider 12/23/22 02/23/23 documented as of this encounter Additional Source Comments The information contained in this document represents components of the legal health record. It is not the complete legal health record.[facility]
--- OUTSIDE RECORDS SUMMARY | 2025-01-22 15:00 | XMS_ITS | Encounter Summary ---
Author Organization [facility] Address [address] [place] [address] Phone Care Team Providers Care Software Recruiter Name Role Phone Lily Her MD Primary Care Provider Larry Platt MD Unavailable [phone] Encounter Details Date Type Department Care Team (Late st Contact Info) Description 11/29/[address] [facility] Specimen Processing [address] [place] [address] Brigida Garcia NP [address] [place] [address] Social History Tobacco Use Types Packs/Day Years [...] documented as of this encounter Care Teams Software Recruiter Relationship Specialty Start Date End Date Lily Her MD 24 [place] [address] PCP - General Family Medicine 09/05/22 Larry Platt MD [address] [place] [address] [email or web address] Insurance Assigned Provider 12/23/22 02/23/23 documented as of this encounter Additional Source Comments The information contained in this document represents components of the legal health record. It is not the complete legal health record.[facility]
--- OUTSIDE RECORDS SUMMARY | 2025-01-22 15:00 | XMS_ITS | Encounter Summary ---
Author Organization [facility] Address [address] [facility] [address] [place] [address] Phone Care Team Providers Care Survey Research Center Director Name Role Phone Lily Her MD Primary Care Provider Encounter Details Date Type Department Care Team ([facility] st Contact Info) Description 04/05/2023 Transcribe Orders [facility] Specimen Processing [address] [place] [address] Viviana Mock [address] [place] [address] [email or web address] Social History Tobacco Use Types Packs/Day Years [...] documented as of this encounter Care Teams Survey Research Center Director Relationship Specialty Start Date End Date Lily Her MD [address] [place] [address] PCP - General Family Medicine 09/05/22 documented as of this encounter Additional Source Comments The information contained in this document represents components of the legal health record. It is not the complete legal health record.[facility]
--- OUTSIDE RECORDS SUMMARY | 2025-01-22 15:00 | XMS_ITS | Encounter Summary ---
Author Organization [facility] Address [address] [facility] [address] [place] [address] Phone Care Team Providers Care Swiss Type Screw Machine Operator Name Role Phone Lily Her MD Primary Care Provider Larry Platt MD Unavailable [phone] Encounter Details Date Type Department Care Team (Late st Contact Info) Description 11/16/2022 Transcribe Orders [facility] Specimen Processing [address] [place] [address] Viviana Mock [address] [place] [address] [email or web address] Social History Tobacco Use Types Packs/Day Years [...] documented as of this encounter Care Teams Swiss Type Screw Machine Operator Relationship Specialty Start Date End Date Lily Her MD [address] [place] [address] PCP - General Family Medicine 09/05/22 Larry Platt MD [address] [place] [address] [email or web address] Insurance Assigned Provider 12/23/22 02/23/23 documented as of this encounter Additional Source Comments The information contained in this document represents components of the legal health record. It is not the complete legal health record.[facility]
--- OUTSIDE RECORDS SUMMARY | 2025-01-22 15:00 | XMS_ITS | Encounter Summary ---
Author Organization [facility] Address [address] [facility] [address] [place] [address] Phone Care Team Providers Care Observation Assistant Name Role Phone Lily Her MD Primary Care Provider Larry Platt MD Unavailable [phone] Encounter Details Date Type Department Care Team (Late st Contact Info) Description 09/06/2022 Procedure Pass [facility] [place] [address] [place] [address], 2nd [place] [address] Social History Tobacco Use Types Packs/Day Years [...] documented as of this encounter Care Teams Observation Assistant Relationship Specialty Start Date End Date Lily Her MD [address] [place] [address] PCP - General Family Medicine 09/05/22 Larry Platt MD [address] [place] [address] [email or web address] Insurance Assigned Provider 12/23/22 02/23/23 documented as of this encounter Additional Source Comments The information contained in this document represents components of the legal health record. It is not the complete legal health record.[facility]
--- OUTSIDE RECORDS SUMMARY | 2025-01-22 15:00 | XMS_ITS | Clinical Summary ---
Author Organization [facility] Address [address] [address] Phone Care Team Providers Care Gas Dispenser Name Role Phone Lily Her MD Primary Care Provider Allergies Active Allergy Reactions Criticality Noted Date Comments Qyebzrr-Rqt-Poe Reductase Inhibitors Other (See Comments) 09/09/2022 Necrotizing myopathy Medications sulfamethoxazole-tr imethoprim (BACTRIM,SEPTRA) 400-80 mg per tablet Take 1 tablet (80 mg of trimethoprim total) by mouth daily. 10/07/19 Active traZODone (DESYREL) 100 MG tablet Take 1 tablet (100 mg total) by mouth nightly at bedtime as needed. 10/06/19 Active calcium carbonate-vitamin D3 1,500 mg (600 mg elemental)-800 units Tab Take 1 tablet by mouth 2 (two) times a day. 11/07/19 Active capsaicin (ZOSTRIX) 0.025 % cream Apply topically 3 (three) times a day as needed (legs). 11/07/19 Active DULoxetine (CYMBALTA) 30 MG capsule Take 1 capsule (30 mg total) by mouth 2 (two) times a day. 11/07/19 Active gabapentin (NEURONTIN) 300 MG capsule Take 3 capsules (900 mg total) by mouth every 8 (eight) hours. 11/07/19 Active lactulose (CONSTULOSE) 20 gram/30 mL Soln Take 30 mL (20 g total) by mouth 3 (three) times a day as needed. 11/07/19 Active losartan (COZAAR) 25 MG tablet Take 1 tablet (25 mg total) by mouth daily. 11/07/19 Active magnesium oxide (MAG-OX) 400 mg (241.3 mg elemental) tablet Take 1 tablet (400 mg total) by mouth daily. 11/07/19 Active metoprolol tartrate (LOPRESSOR) 25 MG tablet Take 1 tablet (25 mg total) by mouth 2 (two) times a day. 11/07/19 Active miconazole 2 % powder Apply topically 2 (two) times a day. 70 g 11/07/19 Active phedhkvx-fdq-mvlpjb s fumarate 15 mg iron Tab Take 1 tablet by mouth daily. 11/07/19 Active omeprazole (PRILOSEC) 20 MG capsule Take 1 capsule (20 mg total) by mouth daily before breakfast. 11/08/19 Active oxyBUTYnin (DITROPAN-XL) 5 MG 24 hr tablet Take 1 tablet (5 mg total) by mouth nightly at bedtime. 11/07/19 Active polyethylene glycol (MIRALAX) 17 gram packet Take 17 g by mouth daily as needed for mild constipation. 11/07/19 Active potassium chloride SA (KLOR-CON M) 20 MEQ ER tablet Take 2 tablets (40 mEq total) by mouth 3 (three) times a week on Saturday, Saturday, Saturday. 11/08/19 Active senna (SENOKOT) 8.6 mg tablet Take 1 tablet by mouth nightly at bedtime as needed. 11/07/19 Active simethicone (MYLICON) 80 mg chewable tablet Take 1 tablet (80 mg total) by mouth every 6 (six) hours as needed. 11/07/19 Active tamsulosin (FLOMAX) 0.4 mg Cap Take 1 capsule (0.4 mg total) by mouth daily. 11/07/19 Active warfarin (COUMADIN) 5 MG tabletIndications:p ulmonary thromboembolism prevention Take 1 tablet (5 mg total) by mouth every evening for 30 doses. Please take 5 mg for 5 days and then 3 mg for 2 days and continue. Indications: treatment to prevent a blood clot in the lung 30 tablet 11/07/19 Active oxyCODONE 5 MG immediate release tablet Take 2 tablets (10 mg total) by mouth every 6 (six) hours as needed. Partial fill ok 56 tablet 07/26/19 24 Active azaTHIOprine (AZASAN) 75 mg Tab Take 2 tablets (150 mg total) by mouth daily. 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 Myopathy 09/05/2022 Social History Tobacco Use Types Packs/Day Years Used Date Smoking Tobacco: Former Cigarettes 1 20 Smokeless Tobacco: Never Tobacco Cessation:Counseling Given: Not Answered Alcohol Use Standard Drinks/Week Comments Not Currently [...] Orientation Straight 10/22/2022 8: 45 AM EDT Last Filed Vital Signs Vital Sign Reading Time Taken Comments Blood Pressure 111/74 09/11/2023 2:23 PM EDT Pulse 64 09/11/2023 2:23 PM EDT Temperature 36.8 C (98.2 F) 09/11/2023 2:23 PM EDT Respiratory Rate 16 09/11/2023 2:23 PM EDT Oxygen Saturation 96% 09/11/2023 2:23 PM EDT Inhaled Oxygen Concentration 40% 11/06/2022 4 :39 AM EDT Weight 191.9 kg (423 lb) 07/05/2023 9:43 AM EST pt reported Height 182.9 cm (6' 0.01 ) 05/17/2023 9:00 AM ES T Body Mass Index 57.36 05/17/2023 9:00 AM EST Plan of Treatment Health Maintenance Due Date Last Done Comments Adult Td,Tdap Booster 1970 SMOKING Hx and SMOKELESS TOBACCO SCREENING 10/18/1984 HIV ONE-TIME SCREENING (18-65 YEARS) 10/18/1989 PNEUMOCOCCAL VACCINES (50+ years) (1 of 2 - PCV) 10/18/1990 ZOSTER VACCINES (1 of 2) 10/18/1990 COLOGUARD 10/18/2016 FIT TEST 10/18/2016 FOBT 10/18/2016 SIGMOIDOSCOPY 10/18/2016 VIRTUAL COLONOSCOPY 10/18/2016 COVID-19 VACCINE (3 - Moderna risk series) 04/06/2021 03/09/2021, 02/09/2021 ALKALINE PHOSPHATASE LEVEL 05/15/202405/15, 03/08/2023, 11/13/2022, Additional history exists CREATININE LEVEL 05/15/2024 05/15/2023, , 11/13/2022, Additional history exists POTASSIUM LEVEL 05/15/2024 05/15/2023, 02/18, 11/13/2022, Additional history exists DEPRESSION SCREENING 06/29/2024 06/29/2023 SCREENING FOR DIABETES 05/15/2026 05/15/2023 LIPID PANEL 09/12/2027 09/11/2022 COLONOSCOPY 09/28/2032 09/28/2022 COLORECTAL CANCER SCREENING 09/28/2032 HEPATITIS C SCREENING Completed 09/07/2022 HEPATITIS A VACCINES Aged Out No long er eligible based on patient's age to complete this topic HIB VACCINES Aged Out No longer eligi ble based on patient's age to complete this topic MENINGOCOCCAL VACCINES (ACWY) Aged Out No longer eligible based on patient's age to complete this topic MENINGOCOCCAL VACCINES (B) Aged Out N o longer eligible based on patient's age to complete this topic Medical Devices Implanted Type Area Mud Analysis Operator Device Identifier Shelf Expiration Date Model / Serial / Lot Screw Plate Description:7 screw plates r ight fibula Procedures Procedure Name Priority Date/Time Associated Diagnosis Comments LFTS (HEPATIC PANEL) Routine 05/15/2023 6:08 AM EST BASIC METABOLIC PANEL Routine 05/15/2023 6:08 AM EST ENDOSCOPY, COLON 09/28/2022 10:0 9 AM EDT LIPID PANEL Routine 09/11/2022 5:45 AM EDT HEPATITIS C ANTIBODY, QUALITATIVE Routine 09/07/2022 4:40 PM EDT from Last 3 Months or Most Recently Relevant to Health Maintenance Results * (ABNORMAL) LFTs (hepatic panel) (05/15/2023 6:08 AM EST) ALBUMIN 3.6 3.5 - 5.2 g/dL [facility] TOTAL BILIRUBIN 0.2 0.0 - 1.2 mg/dL [facility] DIRECT BILIRUBIN <0.2 0.0 - 0.2 mg/dL [facility] ALKALINE PHOSPHATASE 89 40 - 130 U/L [facility] AST 43(H) 15 - 41 U/L [facility] ALT 35 10 - 50 U/L [facility] TOTAL PROTEIN 7.7 6.1 - 8.1 g/dL [facility] GLOBULIN 4.1 1.9 - 4.1 g/dL [facility] 05/15/2023 6:08 AM EST 05/15/2023 9:27 AM EST us Brigida Garcia NP LAB BLOOD ORDERABLES Final R esult [address] [phone] * (ABNORMAL) Basic metabolic panel (05/15/2023 6:08 AM EST) SODIUM 138 136 - 145 mmol/L [facility] CHLORIDE 100 98 - 107 mmol/L [facility] POTASSIUM 4.2 3.6 - 5.1 mmol/L [facility] CO2 27 22 - 32 mmol/L [facility] BUN 10 6 - 20 mg/dL [facility] CREATININE 0.39(L) 0.6 - 1.3 mg/dL [facility] GLUCOSE 125(H) 65 - 99 mg/dL [facility] CALCIUM 9.2 8.9 - 10.3 mg/dL [facility] EGFR >120 60 - 128 mL/min/1.7 3m2 [facility] Comment:Estimated glomerular filtration rate calculated using the CKD-EPI refit equation. ANION GAP 11 3 - 17 mmol/L [facility] 05/15/2023 6:08 AM EST 05/15/2023 9:27 AM EST Brigida Garcia NP LAB BLOOD [place]ABLES [place] [address], [facility] [phone] * ENDOSCOPY, COLON (09/28/2022 10:09 AM EDT) 09/28/2022 10:0 9 AM EDT Narrative Transcriptions Mara Reyna MD - 09/28/2022 10:09 AM EDT Gastrointestinal Endoscopy Unit Patient Name: Lawrence Santoyo Exam Date: 09/28/2022 10:09 AM Date of : 1970 Admit Type: Inpatient Age: 51 Room: [facility] 4 PROC RM 09-R Gender: Male Note Status: Finalized Attending MD: Mara Reyna MD Procedure: Colonoscopy Indications: Abnormal CT of the GI tract Providers: Mara Reyna MD, Brock Sherman Referring MD: Brock Sherman (Referring MD) Medicines: General Anesthesia Complications: No immediate complications. Procedure: After obtaining informed consent, the endoscope was passed under direct vision. Throughout the procedure, the patient's blood pressure, pulse, and oxygen saturations were monitored continuously. The Colonoscope was introduced through the anus and advanced to the the cecum, identified by appendiceal orifice and ileocecal valve. The colonoscopy was performed without difficulty. The patient tolerated the procedure well. The quality of the bowel preparation was evaluated using the BBPS ([place] Bowel Preparation Scale) with scores of: Right Colon = 3 (entire mucosa seen well with no residual staining, small fragments of stool or opaque liquid), Transverse Colon = 3 (entire mucosa seen well with no residual staining, small fragments of stool or opaque liquid) and Left Colon = 2 (minor amount of residual staining, small fragments of stool and/or opaque liquid, but mucosa seen well). The total BBPS score equals 8. Findings: Hemorrhoids were found on perianal exam. A diminutive polyp was found in the cecum. The polyp was sessile. The polyp was removed with a cold snare. Resection and retrieval were complete. Submucosal lesion seen in ascending colon (about 5-7mm), likely lipoma. Not biopsied or resected. The exam was otherwise normal throughout the examined colon. Impression: - Hemorrhoids found on perianal exam. - One diminutive polyp in the cecum, removed with a cold snare. Resected and retrieved. - Submucosal lesion seen in ascending colon (about 5-7mm), likely lipoma. Not biopsied or resected. Recommendation: - Await pathology results. - Rest as per inpatient GI team. Attending Participation: I was present and participated during the entire procedure, including non-yeager portions. Mara Reyna MD, [id number] 09/28/2022 11:14:12 AM The attending physician was present throughout the entire procedure. Brock Sherman, , [id number] Number of Addenda: 0 Note Initiated On: 09/28/2022 10:09 AM Brock Sherman MD GI PROCEDURE ORDERABLES Final Result * (ABNORMAL) Lipid panel (09/11/2022 5:45 AM EDT) HDL 49 35 - 100 mg/dL [facility] CHOLESTEROL 168 <200 mg/dL [facility] TRIGLYCERIDES 192(H) 40 - 150 mg/dL [facility] LDL 81 50 - 129 mg/dL [facility] CARDIAC RISK RATIO 3.4 0.0 - 5.0 [facility] NON-HDL CHOLESTEROL 119 mg/dL [facility] Comment:NCEP ATP III guideli michela suggest a non-HDL cholesterol goal 30 mg/dl higher than the patient-specific LDL goal. Blood 09/11/2022 5:45 AM EDT 09/11/2022 5:57 AM EDT us Harper Givens CNP LAB BLOOD ORDERABLES F inal Result [address] [phone] * Hepatitis C antibody, qualitative (09/07/2022 4:40 PM EDT) HCV ANTIBODY Negative Negative [facility] Comment:Antibodies to HCV no t detected. Does not exclude the possibility of exposure to HCV. 09/07/2022 4:40 PM EDT 09/07/2022 11:28 PM EDT Dale Page MD, PhD LAB BLOOD ORDERABLES Final Result [address] [address] from Last 3 Months or Most Recently Relevant to Health Maintenance Insurance [facility] [employer] Member Subscriber Plan / Payer (Ef fective 2023-Present) Name:Lawrence Santoyo Relation to Subscriber:Self Name:Lawrence Santoyo Payer ID:Not on file Type:Medicaid Address: [place] [id number] [employer] Advance Directives For more information, please contact: [phone] (9AM - 5PM [facility], Saturday-Saturday) Documents on File Type Date Recorded Patient Pipe Line Walker Expl anation Healthcare Proxy 09/09/2022 4:27 PM * Full Code (Latest Code Status on File) Date Activated Date Inactivated Comments 10/05/2022 5:14 PM Question Answer Comments Code Status Confirmed With: Other (specify below ) * Full Code Date Activated Date Inactivated Comments 09/06/2022 12:32 PM 10/05/2022 5:14 PM Question Answer Comments Code Status Confirmed With: Patient Care Teams Gas Dispenser Relationship Specialty Start Date End Date Lily Her MD [address] [place] [address] PCP - General Family Medicine 09/05/22 Additional Source Comments The information contained in this document represents components of the legal health record. It is not the complete legal health record.[facility]
--- OUTSIDE RECORDS SUMMARY | 2025-01-22 15:00 | XMS_ITS | Encounter Summary ---
Author Organization [facility] Address [address] [facility] [address] [place] [address] Phone Care Team Providers Care Health Services Rn Name Role Phone Lily Her MD Primary Care Provider Encounter Details Date Type Department Care Team ([facility] st Contact Info) Description 03/11/2023 Transcribe Orders [facility] Specimen Processing [address] [place] [address] Viviana Mock [address] [place] [address] [email or web address] Social History Tobacco [...] documented as of this encounter Care Teams Health Services Rn Relationship Specialty Start Date End Date Lily Her MD [address] [place] [address] PCP - General Family Medicine 09/05/22 documented as of this encounter Additional Source Comments The information contained in this document represents components of the legal health record. It is not the complete legal health record.[facility]
--- OUTSIDE RECORDS SUMMARY | 2025-01-22 15:00 | XMS_ITS | Encounter Summary ---
Author Organization [facility] Address [address] [facility] [facility] [address] [place] [address] Phone Care Team Providers Care Pest Control Operator Name Role Phone Lily Her MD Primary Care Provider Larry Platt MD Unavailable [phone] Encounter Details Date Type Department Care Team (Late st Contact Info) Description 11/28/2022 Transcribe Orders [facility] Specimen Processing [address] [place] [address] Kalin Arango [address] [place] [address] Social History Tobacco Use Types Packs/Day Years [...] documented as of this encounter Care Teams Pest Control Operator Relationship Specialty Start Date End Date Lily Her MD [address] [place] [address] PCP - General Family Medicine 09/05/22 Larry Platt MD [address] [place] [address] [email or web address] Insurance Assigned Provider 12/23/22 02/23/23 documented as of this encounter Additional Source Comments The information contained in this document represents components of the legal health record. It is not the complete legal health record.[facility]
--- OUTSIDE RECORDS SUMMARY | 2025-01-22 15:00 | XMS_ITS | Encounter Summary ---
Author Organization [facility] Address [address] [facility] [address] [place] [address] Phone Care Team Providers Care Front Worker Name Role Phone Lily Her MD Primary Care Provider Larry Platt MD Unavailable [phone] Encounter Details Date Type Department Care Team (Late st Contact Info) Description 09/07/2022 Procedure Pass [facility] Cardiac US [address] [place] [address] Social History Tobacco Use Types Packs/Day Years [...] documented as of this encounter Care Teams Front Worker Relationship Specialty Start Date End Date Lily Her MD [address] [place] [address] PCP - General Family Medicine 09/05/22 Larry Platt MD [address] [place] [address] [email or web address] Insurance Assigned Provider 12/23/22 02/23/23 documented as of this encounter Additional Source Comments The information contained in this document represents components of the legal health record. It is not the complete legal health record.[facility]
--- OUTSIDE RECORDS SUMMARY | 2025-01-22 15:00 | XMS_ITS | Encounter Summary ---
Author Organization [facility] Address [address] [facility] [address] [place] [address] Phone Care Team Providers Care Brand Director Name Role Phone Lily Her MD Primary Care Provider Encounter Details Date Type Department Care Team ([facility] st Contact Info) Description 03/27/2023 Transcribe Orders [facility] Specimen Processing [address] [place] [address] Viviana Mock [address] [place] [address] [email or web address] Social History Tobacco Use Types Packs/Day Years [...] documented as of this encounter Care Teams Brand Director Relationship Specialty Start Date End Date Lily Her MD [address] [place] [address] PCP - General Family Medicine 09/05/22 documented as of this encounter Additional Source Comments The information contained in this document represents components of the legal health record. It is not the complete legal health record.[facility]
--- OUTSIDE RECORDS SUMMARY | 2025-01-22 15:00 | XMS_ITS | Clinical Summary ---
Author Organization [facility] Address [address] [place] [address] Care Team Providers Care Disk Sander Name Role Phone Unavailable Primary Care Provider [...] COVID-19 Vaccine ( - 2023-2 5 season) 2025 Influenza (#1) 2025 HPV Vaccine (No Doses Required) Completed Hep A Aged Out No longer eligi ble based on patient's age to complete this topic Hib Aged Out No longer eligi ble based on patient's age to complete this topic Meningococcal ACWY Aged Out No longer eligible based on patient's age to complete this topic
--- OUTSIDE RECORDS SUMMARY | 2025-01-22 15:00 | XMS_ITS | Encounter Summary ---
Author Organization [facility] Address [address] [facility] [address] [place] [address] Phone Care Team Providers Care Drug Department Worker Name Role Phone Lily Her MD Primary Care Provider Larry Platt MD Unavailable [phone] Encounter Details Date Type Department Care Team (Late st Contact Info) Description 09/24/2022 Procedure Pass [facility] [place] [address] [facility], 6th [place] [address] Social History Tobacco Use Types Packs/Day Years [...] documented as of this encounter Care Teams Drug Department Worker Relationship Specialty Start Date End Date Lily Her MD [address] [place] [address] PCP - General Family Medicine 09/05/22 Larry Platt MD [address] [place] [address] [email or web address] Insurance Assigned Provider 12/23/22 02/23/23 documented as of this encounter Additional Source Comments The information contained in this document represents components of the legal health record. It is not the complete legal health record.[facility]
--- OUTSIDE RECORDS SUMMARY | 2025-01-22 15:00 | XMS_ITS | Encounter Summary ---
Author Organization [facility] Address [address] [employer] [facility] [address] [place] [address] Phone Care Team Providers Care Greige Goods Marker Name Role Phone Lily Her MD Primary Care Provider Encounter Details Date Type Department Care Team (Late st Contact Info) Description 04/09/2023 Transcribe Orders [facility] Specimen Processing [address] [place] [address] Maria De Jesus Reina MD [address] [place] [address] [email or web address] Social History Tobacco Use Types Packs/Day [...] documented as of this encounter Care Teams Greige Goods Marker Relationship Specialty Start Date End Date Lily Her MD [address] [place] [address] PCP - General Family Medicine 09/05/22 documented as of this encounter Additional Source Comments The information contained in this document represents components of the legal health record. It is not the complete legal health record.[facility]
--- NOTE | 2025-01-22 15:47 | A.OFFVIS_ITS ---
Vital Signs 01/22/25 15:55 Height 6 ft BMI Reason not done Patient refused/unable BP 124/82 Blood Pressure Location Lt radial Pulse 86 Pulse Source Pulse Oximeter Pulse Oximetry (%) 97 Oxygen Delivery Method Room Air Intake Visit Reasons: Follow up Intake Note: Patient presents for [facility] follow up. Allergies atorvastatin Allergy (Mild, Verified 01/22/25 15:54) Unknown Medication List - Last Reconciled 01/22/25 by Chelsie Juarez MD azathioprine 150 mg (3 x 50 mg) PO DAILY 90 days duloxetine 60 mg PO DAILY gabapentin 300 mg PO TID losartan 25 mg PO DAILY metoprolol tartrate 25 mg PO BID omeprazole 40 mg PO DAILY oxybutynin chloride 5 mg PO DAILY oxycodone-acetaminophen 10-325 mg 1 tab PO TID PRN warfarin 5 mg PO DAILY warfarin 2.5 mg PO DAILY HPI Comments Details: Patient is a 54-year-old male with hypertension complicated by TIA, diabetes,, history of pulmonary embolism and renal infarct, patent Alvares ovale, and 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 - On IVIG 2g IV monthly and azathioprine - Doing well on the gammagard - Has been complaining of nausea and vomiting - Slowly working with PT - Currently having issues with his shoulder. Soreness all the time. Can't lay on it. Currently doing PT for this - Exam consistent with biceps tendonitis but tendon sheath injection not helpful. Unable to do MRI due to hardware - Added zofran to his IVIG infusion medications Today, - On IVIG 2g monthly and azathioprine - Still having the nausea and vomiting - Also complaining about worsening fatigue and abnormal sleep patterns - Wants to do the IVIG every 2 weeks Rheumatologic History: Initial History by me: Patient is a 53-year-old male with hypertension complicated by TIA, diabetes,, history of pulmonary embolism and renal infarct, patent Alvares ovale, and autoimmune necrotizing myopathy who presents today to establish care. Patient had rapid onset of lower extremity muscle weakness 05/2022. CK was checked and was elevated and he was admitted for IV fluids. Despite IV fluids the CK did not respond and so further testing was sought. Of note his CK kept increasing requiring multiple hospitalizations. His 3rd hospitalization he had a muscle biopsy: left calf ([facility]), results were inconclusive. While waiting for the results of the first biopsy he continued to deteriorate and ultimately had respiratory muscle weakness requiring intubation. Transferred to [facility] and had a second biopsy of the right thigh ([facility]) - which showed evidence of immune mediated necrotizing myopathy. He was started on steroids and methotrexate with some improvement in his muscle weakness. Started IVIG every month and PT. Was able to be extubated and trach ultimately removed He was getting his care in [place] but is transitioning back to the [place] area. IVIG dose last month PT stopped last month as well due to change in insurance Currently on azathioprine and IVIG for his IMNM Current muscle strength - transfers from wheel chair to bed or chair - can stand for a few seconds but cannot walk Current Rheumatology Medication(s): IVIG 2g/kg every 4 weeks given over 2 days Azathioprine 150mg daily [facility] Medical History (Updated 05/27/24 @ 15:20 by Chelsie Juarez MD) Necrotizing myositis Statin-induced myositis Surgical History History of appendectomy History of cholecystectomy Family History Mother Myositis Social History Household Members: Family Housing: House Alcohol intake: current Patient Tobacco Use Status: Former Tobacco user Cigarettes Per Day: 2 Years Smoked: 30 Review of Systems Const Details: Review of Systems Constitutional: Denies fever, chills, weight loss ENT: Denies vision changes, eye pain or eye redness, dental caries, dry mouth GI: Denies nausea, vomiting, diarrhea, abdominal pain, change in BM Pulm: Denies SOB, ALARCON, hemoptysis, wheezing Cards: Denies chest pain, palpitations Skin: Denies Raynaud's, rash, nail changes, photosensitivity, 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 Well appearing and in no apparent painful distress Examined in wheelchair MSK Hands * Right Hand: No Tenderness to palpation of the MCPs, PIPs or DIPs. No deformities noted. * Left Hand: No Tenderness to palpation of the MCPs, PIPs or DIPs. No deformiti es noted. Wrists * Right Wrist: Full ROM to flexion and extension. No swelling or TTP * Left Wrist: Full ROM to flexion and extension. No swelling or TTP Elbows * Right Elbow: Full ROM. No swelling or TTP. No TTP of the medial epicondyle. No TTP of the lateral epicondyle * Left Elbow: Full ROM. No swelling or TTP. No TTP of the medial epicondyle. No TTP of the lateral epicondyle Shoulders * Right shoulder: Decreased ROM. No swelling noted. No TTP of the AC joint. No TTP of the subacromial bursa. No TTP of the posterior shoulder * Left shoulder: Decreased ROM. No swelling noted. No TTP of the AC joint. No TTP of the subacromial bursa. No TTP of the posterior shoulder Knees * Right knee: Decreased ROM. No swelling noted. No TTP of the knee joint line. No TTP of pes anserine bursa * Left knee: Decreased ROM. No swelling noted. No TTP of the knee joint line. No TTP of pes anserine bursa. Ankles * Right ankle: Good ankle dorsiflexion and plantar flexion. No swelling. No TTP of the ankle joint * Left ankle: Good ankle dorsiflexion and plantar flexion. No swelling. No TTP of the ankle joint * Pitting edema bilaterally Feet * Right foot: Negative squeeze test * Left foot: Negative squeeze test Tender points? * No tenderness to palpation of the bilateral trapezius, supraspinatus, anterior costochondral junctions, bilateral suboccipital muscle insertions Right Left Neck 5 Process Architect strength 5 5 Wrist flexion 5 5 Wrist extension 5 5 Elbow extension 5 5 Elbow flexion 5 5 Shoulder abduction 4 - 5 4 - 5 Shoulder adduction 4 - 5 4 - 5 Hip flexion 4 - 5 4 - 5 Knee extension 5 5 Knee flexion 5 5 Ankle dorsiflexion 5 5 Ankle plantar flexion 5 5 Vital Signs: Last Vital Signs Pulse 86 01/22/25 15:55 BP 124/82 01/22/25 15:55 Pulse Ox 97 01/22/25 15:55 Oxygen Delivery Method Room Air 01/22/25 15:55 Results Reviewed Results Reviewed: 10/05/24 [facility] WBC 5.1 Hb 13.2 Plt 198 BUN 17 Cr 0.64 eGFR 114 AST 27 ALT 22 CK 1042 Aldolase 5.3 IgG 1677 ESR 24 CRP 6 Assessment & Plan Assessment & Plan (1) Necrotizing myositis: Comment: HMGCR positive Biopsy proven Code(s): M60.80 - Other myositis, unspecified site Category: Medical Plan: #Immune mediated necrotizing myositis Patient is a 54-year-old male with biopsy-proven immune mediated necrotizing myositis, hMGCR positive. His course has been complicated by respiratory muscle weakness and concomitant respiratory muscle failure requiring intubation. He has been weaned off of the vent and the trach has been removed and overall he has had improvement in his muscle weakness and his aldolase has normalized. CK trending down. He still has proximal muscle weakness involving the bilateral lower extremities but this is improving! Doing well on the gammagard. Continue PT, IVIG and azathioprine Plan - IVIG 1g/kg every 2 weeks - Azathioprine 150mg daily - PT - labs today: CBC, CMP, ESR, CRP, CK, Aldolase - Zofran 8mg ODT q12 prn for nausea - RTC 4 months - Labs before visit: CBC, CMP, ESR, CRP, CK, Aldolase (2) Shoulder pain, bilateral: Code(s): M25.511 - Pain in right shoulder; M25.512 - Pain in left shoulder Qualifiers: Chronicity: chronic Qualified Code(s): M25.511 - Pain in right shoulder; M25.512 - Pain in left shoulder; G89.29 - Other chronic pain Plan: #Bilateral shoulder pain Follow up with ortho (3) Long-term current use of intravenous immunoglobulin (IVIG): Code(s): Z79.899 - Other care home (current) drug therapy Plan: #Long-term use of IVIG Discussed with this patient the risks and benefits of IVIG use to the management of the rheumatic condition Benefits include improved disease control and maintenance of remission Risks include anaphylaxis, blood clots, transfusion related acute lung injury, hemolytic reaction, fluid overload, heart problems (4) Encounter for monitoring azathioprine therapy: Code(s): Z51.81 - Encounter for therapeutic drug level monitoring; 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 - Reduced pain, maintenance of remission and reduction of flares Risks include: - Bone marrow suppression, GI upset, lymphoma, hepatotoxicity, pancreatitis, hypersensitivity syndrome Drug monitoring: CBC every 4 weeks for the 1st 3 months then CBC BMP LFTs every 3 months Avoid concomitant sulfasalazine, allopurinol or febuxostat Plan I spent 30 minutes reviewing the record and labs, taking a history, examining the patient, discussing the treatment plan and documenting in the medical record Orders: Orders Complete Blood Count Auto Diff Today M60.80 - Other myositis, unspecified site Erythrocyte Sedimentation Rate Today M60.80 - Other myositis, unspecified site Immunoglobulins,IgG IgA IgM Today M60.80 - Other myositis, unspecified site Aldolase Today M60.80 - Other myositis, unspecified site Comprehensive Met. Panel Today M60.80 - Other myositis, unspecified site C Reactive Protein Today M60.80 - Other myositis, unspecified site Creatine Kinase Total Today M60.80 - Other myositis, unspecified site Medications: New [Power lift chair] As directed 1 ea 0RF M60.80 - Other myositis, unspecified site ondansetron 8 mg PO Q12H PRN 14 tabs 0RF nausea and vomiting R11.0 - Nausea Coding Level of Care Code Est Pt Level 4 (08713) Complex EM visit Add On G2211 Diagnoses Necrotizing myositis M60.80 Chronic pain of both shoulders M25.511; M25.512; G89.29 Chronicity: chronic Long-term current use of intravenous immunoglobulin (IVIG) Z79.899 Encounter for monitoring azathioprine therapy Z51.81; Z79.624
[2025-01-22 15:55] VITALS: BP 124/82; PULSE 86; O2SAT 97
== END ==
LOC: HO.RHES 14:56
PROVIDERS: Visit Provider Student in an Organized Health Care Education/Training Program
DX: M60.80 Other myositis, unspecified site (principal); M25.511 Pain in right shoulder; M25.512 Pain in left shoulder; G89.29 Other chronic pain; Z79.899 Other long term (current) drug therapy; Z51.81 Encounter for therapeutic drug level monitoring; Z79.624 Long term (current) use of inhibitors of nucleotide synthesis
CPT/HCPCS: 99214; G2211

== ENCOUNTER → 2025-01-22 14:56 | Outpatient (BNVA) | payer MEDICARE, MEDICAID, SELFPAY | PROVIDERS: Visit Provider Student in an Organized Health Care Education/Training Program | DX: M60.80 Other myositis, unspecified site (principal); Z79.899 Other long term (current) drug therapy; Z51.81 Encounter for therapeutic drug level monitoring; Z79.624 Long term (current) use of inhibitors of nucleotide synthesis; M25.511 Pain in right shoulder; M25.512 Pain in left shoulder; G89.29 Other chronic pain | CPT/HCPCS: 99212 ==

== ENCOUNTER 2025-01-27 11:01 | Outpatient (REF) | payer MEDICARE, MEDICAID, SELFPAY ==
--- OUTSIDE RECORDS SUMMARY | 2024-03-10 15:00 | XMS_ITS | Encounter Summary ---
Author Organization [place] [address] Care Team Providers Care Administration Specialist Name Role Phone Lily Her MD Primary Care Provider [phone] Encounter Details Date Type Department Care Team (Late st Contact Info) Description 03/10/2024 3:00 PM EDT Hospital Encounter TH HISTORIC ENCOUNTERS EASTERN CONVERSION ONLY Taryn Maldonado, WINDOWS INFRASTRUCTURE ENGINEER [address] [place] [address] Social History Tobacco Use Types Packs/Day Years [...] the day L sh elevation AROM at [id number] for overhead reaching tasks Generally met, varies [...] on filedocumented in this encounter Care Teams Administration Specialist Relationship Specialty Start Date End Date Lily Her MD [address] [place] [phone] PCP - General Family Medicine 01/26/22 documented as of this encounter
--- OUTSIDE RECORDS SUMMARY | 2024-03-10 16:53 | XMS_ITS | Encounter Summary ---
Author Organization [employer] [place] [address] Care Team Providers Care Glue Spreading Machine Operator Name Role Phone Lily Her MD Primary Care Provider [phone] Encounter Details Date Type Department Care Team (Late st Contact Info) Description 03/10/2024 4:53 PM EDT Hospital Encounter TH HISTORIC ENCOUNTERS EASTERN CONVERSION ONLY Taryn Maldnoado, WOOL SHEARER [address] [place] [address] Social History Tobacco Use Types Packs/Day Years [...] the day L sh elevation AROM at [id number] for overhead reaching tasks Generally met, varies [...] on filedocumented in this encounter Care Teams Glue Spreading Machine Operator Relationship Specialty Start Date End Date Lily Her MD [address] [place] [address] [phone] PCP - General Family Medicine 01/26/22 documented as of this encounter
[2025-01-27 11:29] LABS: MANUAL DIFF FLAG NO
[2025-01-27 12:38] LABS: Hematocrit 40.8 % (42.0-52.0); Hemoglobin 13.3 g/dl (14.0-18.0); Imm Gran Abs Auto 0.05 X10*3/uL (0.00-0.03); Imm Gran Pct Auto 0.8 % (0.0-0.4); Lymphocytes Absolute Auto 2.8 X10*3/uL (1.2-4.9); Mean Corpuscular HGB Conc 32.6 g/dl (31.0-36.0); Mean Corpuscular Hemoglobin 27.8 pg (27.0-33.0); Mean Corpuscular Volume 85.4 fL (80.0-98.0); NRBC Abs Auto 0.000 X10*3/uL (0.0-0.012); NRBC Pct Auto 0.0 /100WBC (0.0-0.2); Platelet Count 216 X10*3/uL (160-400); Red Blood Count 4.78 X10*6/uL (4.60-5.80); White Blood Count 6.5 X10*3/uL (4.8-10.8)
[2025-01-27 13:09] LABS: Alanine Aminotransferase 28 U/L (0-40); Albumin Level 4.0 g/dL (3.5-5.0); Alkaline Phosphatase 76 U/L (39-117); Anion Gap 14 (12-20); Aspartate Amino Transferase 31 U/L (5-37); Blood Urea Nitrogen 18 mg/dL (9-16); Calcium 8.7 mg/dL (8.4-10.2); Carbon Dioxide 25 mmol/L (22-29); Chloride 105 mmol/L (96-108); Estimated Glomerular Filt Rate > 60; Potassium 4.1 mmol/L (3.3-5.1); Sodium 140 mmol/L (135-145); Total Protein 7.6 g/dL (6.5-8.0)
--- OUTSIDE RECORDS SUMMARY | 2025-01-27 14:06 | XMS_ITS | Clinical Summary ---
Author Organization [facility] Address [address] [place] [address] Care Team Providers Care Fire Apparatus Engineer Name Role Phone Lily Her MD Primary Care Provider [phone] Allergies No known active allergies Medications Medication [...] age to complete this topic Care Teams Fire Apparatus Engineer Relationship Specialty Start Date End Date Lily Her MD [address] [place] [address] PCP - General Family Medicine 01/26/22
--- OUTSIDE RECORDS SUMMARY | 2025-01-27 14:06 | XMS_ITS | Clinical Summary ---
Author Organization [facility] Address [address] [place] [address] Care Team Providers Care Computer Operations Specialist Name Role Phone Unavailable Primary Care Provider [...]
--- OUTSIDE RECORDS SUMMARY | 2025-01-27 14:06 | XMS_ITS | Clinical Summary ---
Author Organization [facility] Address [address] [place] [address] Phone Care Team Providers Care External Grinder Name Role Phone Lily Her MD Primary Care Provider [phone] Active Problems Problem Noted Date Diagnosed Date Chronic right shoulder pain 03/26/2024 Chronic left shoulder pain 03/26/2024 Surgical History Surgery Date Site/Laterality Comments CHOLECYSTECTOMY 2009 PROCEDURE: [place] LAPAROSCOPY SURG CHOLECYSTECTOMY APPENDECTOMY 1999 PROCEDURE: [place] APPENDECTOMY SHOULDER SURGERY Right PROCEDURE: HISTORICAL SHOULDER [...] DX:Pulmonary embolism, bilat eral (HCC) Renal infarct ([facility] V24) DX:R enal infarct (HCC) Stroke ([facility] V24, [facility] V28) DX:Stroke (HCC) Diabetes mellitus ([facility] V 24, [facility] V28) DX:Diabetes mellitus (HCC) GERD (gastroesophageal reflux [...] Insurance MEDICAID - [place] MEDICARE Care Teams External Grinder Relationship Specialty Start Date End Date Lily Her MD [address] [place] [phone] PCP - General Family Medicine 01/26/22
== END 2025-01-27 11:02 | disposition home or self-care (01) ==
LOC: HO.LAB 11:01
PROVIDERS: Visit Provider Student in an Organized Health Care Education/Training Program
DX: Z01.84 Encounter for antibody response examination (principal); M60.80 Other myositis, unspecified site
CPT/HCPCS: 36415; 80053; 82085; 82550; 82784; 85025; 85652; 86140

== ENCOUNTER 2025-02-02 13:44 | Outpatient (REF) | payer MEDICARE, MEDICAID, SELFPAY | END 2025-02-02 13:45 | disposition home or self-care (01) | LOC: HO.HOSX 13:44 | PROVIDERS: Visit Provider Orthopaedic Surgery | DX: Z13.89 Encounter for screening for other disorder (principal) ==

== ENCOUNTER 2025-02-23 08:06 | Outpatient (AMB) | payer MEDICARE, MEDICAID, SELFPAY ==
--- NOTE | 2025-02-23 08:18 | MHC.OFFVIS ---
Vital Signs 02/23/25 08:20 Height 6 ft Weight 434 lb BMI 58.9 Intake Visit Reasons: Left shoulder pain and weakness Intake Note: Jason is a 54 year old male right hand dominant who presents today as a new patient for bicipital tendinitis, left shoulder pain. Patient was referred by [facility] Rheumatology 12/17/24, at their visit they discussed Patient with HMGCR immune mediated necrotizing myositis on IVIG and azathioprine currently in physical therapy, now complaining of left shoulder pain. This was initially attributed to biceps tendonitis and an ultrasound guided steroid injection was given however this did not improve his pain. Wanted to pursue an MRI but he has a metal foreign body in his humerus and so unable to pursue an MRI. At today's visit he states that the left shoulder pain is constant. He states he has tried physcial therapy and injections with no relief. He states that the only thing that helps is laying down. The patient has failed the last 6 weeks of conservative treatment which has included physical therapy exercises, Tylenol, anti-inflammatory medicines and gabapentin. He has weakness when lifting his left hand above shoulder height. His symptoms have gotten worse over the last 2 years. Know: No HX: Yes Allergies atorvastatin Allergy (Mild, Verified 01/22/25 15:54) Unknown Medication List - Last Reconciled 02/23/25 by Reid Rogers MD azathioprine 150 mg (3 x 50 mg) PO DAILY 90 days duloxetine 60 mg PO DAILY gabapentin 300 mg PO TID losartan 25 mg PO DAILY metoprolol tartrate 25 mg PO BID omeprazole 40 mg PO DAILY ondansetron 8 mg PO Q12H PRN oxybutynin chloride 5 mg PO DAILY oxycodone-acetaminophen 10-325 mg 1 tab PO TID PRN [Power lift chair As directed] warfarin 5 mg PO DAILY warfarin 2.5 mg PO DAILY [facility] Medical History (Updated 02/23/25 @ 08:35 by Reid Rogers MD) Necrotizing myositis Statin-induced myositis Surgical History History of appendectomy History of cholecystectomy Family History Mother Myositis Social History Household Members: Family Housing: House Alcohol intake: current Patient Tobacco Use Status: Former Tobacco user Cigarettes Per Day: 2 Years Smoked: 30 Physical Exam Vital Signs: BMI result Body Mass Index 58.9 Extrem Other: Left shoulder examination shows decreased range of motion when compared to his right shoulder, 4/5 strength with supraspinatus testing, positive impingement signs, tenderness over his acromioclavicular joint, no instability Results Reviewed Results Reviewed: X-rays of the patient's left shoulder taken today show severe acromioclavicular joint narrowing, a type 2 acromion, no acute bony abnormalities Assessment & Plan Assessment & Plan (1) Rotator cuff insufficiency of left shoulder: Code(s): M25.312 - Other instability, left shoulder Category: Medical Plan Mr. Santoyo presents with left shoulder pain and weakness due to impingement syndrome and possible rotator cuff tearing. We will hold off on a cortisone injection at this time because the patient had a cortisone injection approximately 6 weeks ago. I will see him back in 4-6 weeks' time for repeat clinical examination and possible repeat cortisone injection. The patient states that he will be having the foreign body removed from his right arm. I will have him get an MRI of his left shoulder following the foreign body removal. He will continue with his range of motion exercises in the meantime. Feel free to call me at any time should questions regarding his orthopedic management arise. I spent 20 minutes in reviewing the patient's records and imaging studies, seeing the patient and documenting in the medical record. Orders: Orders MR shoulder LT wo con 02/24/25 M25.312 - Other instability, left shoulder XR shoulder LT min 2V Today M25.512 - Pain in left shoulder Coding Level of Care Code New Pt Level 3 (08415) Complex EM visit Add On G2211 Diagnoses Rotator cuff insufficiency of left shoulder M25.312
[2025-02-23 08:20] VITALS: BMI 58.9
== END 2025-02-23 08:34 | disposition home or self-care (01) ==
LOC: HO.HOS 08:07
PROVIDERS: Visit Provider Orthopaedic Surgery
DX: M25.312 Other instability, left shoulder (principal)
CPT/HCPCS: 99203; G2211

== ENCOUNTER → 2025-02-23 08:09 | Outpatient (BNV) | payer MEDICARE, MEDICAID, SELFPAY | PROVIDERS: Visit Provider Radiology Diagnostic Ultrasound | DX: M19.012 Primary osteoarthritis, left shoulder (principal) | CPT/HCPCS: 73030 ==

== ENCOUNTER 2025-02-23 11:47 | Outpatient (REF) | payer MEDICARE, MEDICAID, SELFPAY ==
--- NOTE | ~2025-02-23 | XR_ITS ---
EXAMINATION: XR SHOULDER, LEFT CLINICAL INFORMATION: M25.512 - Pain in left shoulder COMPARISON: None available. TECHNIQUE: Two views of the left shoulder. FINDINGS: Mild acromioclavicular arthritis. No evidence of acute fracture or dislocation. Glenohumeral articulation is maintained. No abnormal soft tissue calcification. No suspicious lung findings. XR/XR shoulder LT min 2V IMPRESSION: Mild acromioclavicular arthritis. Electronically signed by: Horace Gonsalez MD 02/23/2025 08:28 AM EDT
== END 2025-02-23 11:48 | disposition home or self-care (01) ==
LOC: HO.HOSX 11:47
PROVIDERS: Visit Provider Orthopaedic Surgery
DX: M25.312 Other instability, left shoulder (principal)
CPT/HCPCS: 73030; 99202

== ENCOUNTER 2025-04-05 10:29 | Outpatient (AMB) | payer MEDICARE, MEDICAID, SELFPAY ==
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
--- OUTSIDE RECORDS SUMMARY | 2025-04-05 21:37 | XMS_ITS | Data Portability ---
Author Organization [place] - [facility], All[facility] Address [address] [place] [id number] Assessment Encounter Date Assessment Date Assessment LastModified [...] Address Organization Details Recorded Time Acute tonsillitis 58714836 Active 2015 Acute tonsil litis, unspec ified; Note: Date Diagno sed: 12/26/19 16 9:51 AM (J03.9 0) Not Available [employer] 4 03:25:17 Sensorineural hearing loss 03308724 Active 2024 Summer barfield [place] - [facility] 5 13:47:22 Sensorineural hearing loss of bilateral ears 073698304 Active 2024 MAGY DAMIAN MD [address] [place] [address],[address], [phone] , [facility] - [facility] 5 17:08:09 Problem Notes None recorded. Procedures Surgical History Date Name Laterality Status Provider Name and Address Organization Details Recorded Time 06/22/19 Comp Audio with Tymps - 50812 & 29630 completed Summer Booker MA - [facility] 06/22/2024 13:47:10 Cholecystectomy completed MAGY DAMIAN MD [address] [place] [address],[address], [phone], [facility] - [facility] 06/22/2024 17:05:44 Appendectomy completed MAGY DAMIAN MD [address] [place] [address],[address], [phone], [facility] - [facility] 06/22/2024 17:06:03 Imaging Results None recorded. Procedure Notes None recorded. Medical Equipment None Reported. Allergies Allergen ID Allergen Name Allergen Category Reaction Reaction Severity Criticality Documentation Date Start Date Code Code System Note Provider Name and Address Organization Details Recorded Time 002911 Product containin g 3-hydroxy -3-methyl glutaryl- coenzyme A reductase inhibitor (product) medicatio n Not available Not available Not available 06/22/2024 65887 009 SNOMED Lien Chase barfield MA [facility] 13:55:02 Medications Name Sig Start Date Stop Date Status Note LastModified by Organization Details LastModified Time gabapenti n 400 mg capsule TAKE 1 CAPSULE BY MOUTH 3 TIMES A DAY active Not Available Not Available No t Available clindamyc in HCl 150 mg capsule 06/22 completed Medicati on ID: [id number] D uration Value: 10 Brand Name: clindamy [...] mg tablet 06/22 completed Medicati on ID: [id number] D uration Value: 30 Brand Name: pravasta [...] Updated DateTime 06/22/2024 182.88 cm 57.6 kg/m2 757867.76 g Lien Stone MA - [facility] 06/22/2024 14:15:54 Social History None recorded. Functional Status None recorded. Mental Status None recorded. Family History Nothing Reported. Medical History Condition Response Diabetes Y Arthritis Y Stroke Y GERD/Reflux Y Past Encounters Encounter ID Performer Location Encounter Start Date Encounter Closed Date Diagnosis/Indication Diagnosis SNOMED-CT Code Diagnosis ICD10 Code Diagnosis IMO Codes Diagnosis Note [id number] MAGY DAMIAN MD [facility] [address] [phone] 06/22/2024 13:15:52 06/22/2024 16:41:09 Sensorineural hearing loss 38362609 H90.41 Audiologic al evaluation results: Right ear: Essentiall y normal through 4 kHz sloping to a mild sensorineu ral hearing loss with excellent word recognitio n. Left ear: Normal hearing with excellent word recognitio n. Tympanomet ry: Right Ear:Type A Left Ear:Type A [id number] MICHAEL LOBO [facility] [address] [address] 06/22/2024 13:46:33 06/23/2024 09:01:55 Sensorineural hearing loss [id number] H90.41 Audiologic al evaluation results: Right ear: [...] [place] Member ID Guarantor Name 06/22/2024 1 [facility] [id number] Lawrence Santoyo [id number] Lawrence Santoyo 06/22/2024 1 [place]: [employer] Lawrence Santoyo [id number] Lawrence Santoyo 08/20/2024 2 [place]: [facility] Lawrence Santoyo [id number] Lawrence M Szarka Notes Date Note Type Note Provider Name and Address Organization Details Recorded Time 06/22/2024 text/html Audiological Evaluation HPIReported by Patient Summer barfield MA - [facility] 06/22/2024 13:48:56 06/22/2024 text/html ROS as noted in the HPI 53 yo M presents for evaluation of his ears. blockage a few months ago, cleared out in doctor's office usually not an issue for cerumen no tinnitus, hearing ok no pain in ears MAGY DAMIAN MD [address] [place] [address], [phone], [facility] - [facility] 06/22/2024 17:16:50
== END 2025-04-05 11:09 | disposition home or self-care (01) ==
LOC: HO.HGS 10:29
PROVIDERS: PCP Nurse Practitioner Family; Visit Provider Surgery
DX: M79.5 Residual foreign body in soft tissue (principal)
CPT/HCPCS: 99203

== ENCOUNTER → 2025-04-05 10:29 | Outpatient (BNVA) | payer MEDICARE, MEDICAID, SELFPAY | PROVIDERS: PCP Nurse Practitioner Family; Visit Provider Surgery | DX: M79.5 Residual foreign body in soft tissue (principal); Z99.3 Dependence on wheelchair | CPT/HCPCS: 99202 ==

== ENCOUNTER 2025-05-03 20:36 | Emergency (ER) | payer MEDICARE, MEDICAID, SELFPAY ==
--- OUTSIDE RECORDS SUMMARY | 2024-03-10 14:00 | XMS_ITS | Encounter Summary ---
Author Organization [place] [address] Care Team Providers Care Youth Specialist Name Role Phone Lily Her MD Primary Care Provider [phone] Encounter Details Date Type Department Care Team (Late st Contact Info) Description 03/10/2024 3:00 PM EDT Hospital Encounter TH HISTORIC ENCOUNTERS EASTERN CONVERSION ONLY Taryn Maldonado, LEAD LAYING AND GLUING MACHINE OPERATOR [address] [place] [address] Social History Tobacco Use Types Packs/Day Years [...] the day L sh elevation AROM at [id number] for overhead reaching tasks Generally met, varies [...] on filedocumented in this encounter Care Teams Youth Specialist Relationship Specialty Start Date End Date Lily Her MD [address] [place] [phone] PCP - General Family Medicine 01/26/22 documented as of this encounter
--- OUTSIDE RECORDS SUMMARY | 2024-03-10 15:53 | XMS_ITS | Encounter Summary ---
Author Organization [place] [address] Care Team Providers Care Recruiting Administrator Name Role Phone Lily Her MD Primary Care Provider [phone] Encounter Details Date Type Department Care Team (Late st Contact Info) Description 03/10/2024 4:53 PM EDT Hospital Encounter TH HISTORIC ENCOUNTERS EASTERN CONVERSION ONLY Taryn Maldonado, MUSSEL FARMER [address] [place] [address] Social History Tobacco Use Types Packs/Day Years [...] the day L sh elevation AROM at [id number] for overhead reaching tasks Generally met, varies [...] on filedocumented in this encounter Care Teams Recruiting Administrator Relationship Specialty Start Date End Date Lily Her MD [address] [place] [phone] PCP - General Family Medicine 01/26/22 documented as of this encounter
[2025-05-03 20:42] VITALS: BP 139/89; PULSE 81; O2SAT 96
[2025-05-03 20:45] VITALS: BP 127/77; PULSE 78; RESP 16; TEMP 36.7; O2SAT 96; BMI 60.0
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
--- NOTE | 2025-05-03 20:50 | ECG_ITS ---
Test Reason : NEURO SYMPTOMS Blood Pressure : */* mmHG Vent. Rate : 75 BPM Atrial Rate : 75 BPM P-R Int : 188 ms QRS Dur : 86 ms QT Int : 384 ms P-R-T Axes : 45 -2 20 degrees QTcB Int : 428 ms Normal sinus rhythm Normal ECG No previous ECGs available Referred By: Dung Mahoney Electronically Signed By: Jayson Mills
[2025-05-03 21:52] LABS: MANUAL DIFF FLAG NO
[2025-05-03 21:53] LABS: Hematocrit 43.9 % (42.0-52.0); Hemoglobin 14.7 g/dl (14.0-18.0); Imm Gran Abs Auto 0.03 X10*3/uL (0.00-0.03); Imm Gran Pct Auto 0.5 % (0.0-0.4); Lymphocytes Absolute Auto 2.2 X10*3/uL (1.2-4.9); Mean Corpuscular HGB Conc 33.5 g/dl (31.0-36.0); Mean Corpuscular Hemoglobin 27.6 pg (27.0-33.0); Mean Corpuscular Volume 82.4 fL (80.0-98.0); NRBC Abs Auto 0.000 X10*3/uL (0.0-0.012); NRBC Pct Auto 0.0 /100WBC (0.0-0.2); Platelet Count 195 X10*3/uL (160-400); Red Blood Count 5.33 X10*6/uL (4.60-5.80); White Blood Count 5.6 X10*3/uL (4.8-10.8)
[2025-05-03 21:59] LABS: INTERNATIONAL NORM RATIO 1.1 (0.9-1.1); Prothrombin Time 13.3 SEC (11.2-13.5)
[2025-05-03 22:09] LABS: Alanine Aminotransferase 28 U/L (0-40); Albumin Level 4.1 g/dL (3.5-5.0); Alkaline Phosphatase 84 U/L (39-117); Anion Gap 10 (12-20); Aspartate Amino Transferase 35 U/L (5-37); Blood Urea Nitrogen 14 mg/dL (9-16); Calcium 9.1 mg/dL (8.4-10.2); Carbon Dioxide 24 mmol/L (22-29); Chloride 107 mmol/L (96-108); Creatinine Clr Calc Pharmacy 243.2; Estimated Glomerular Filt Rate > 60; Potassium 4.1 mmol/L (3.3-5.1); Sodium 137 mmol/L (135-145); Total Protein 8.2 g/dL (6.5-8.0)
--- OUTSIDE RECORDS SUMMARY | 2025-05-03 22:51 | XMS_ITS | Encounter Summary ---
Author Organization [facility] Address [address] [facility] [address] [place] [address] Phone Care Team Providers Care Wallpaper Hanger Name Role Phone Lily Her MD Primary Care Provider Encounter Details Date Type Department Care Team (Late st Contact Info) Description 07/26/2023 Transcribe Orders [facility] Specimen Processing [address] [place] [address] Viviana Mock Social History Tobacco Use Types Packs/Day Years [...] documented as of this encounter Care Teams Wallpaper Hanger Relationship Specialty Start Date End Date Lily Her MD [address] [place] [address] PCP - General Family Medicine 09/05/22 documented as of this encounter Additional Source Comments The information contained in this document represents components of the legal health record. It is not the complete legal health record.[facility]
--- OUTSIDE RECORDS SUMMARY | 2025-05-03 22:51 | XMS_ITS | Encounter Summary ---
Author Organization [facility] Address [address] [place] [address] Phone Care Team Providers Care Mutual Funds Agent Name Role Phone Lily Her MD Primary Care Provider Larry Platt MD Unavailable [phone] Encounter Details Date Type Department Care Team (Late st Contact Info) Description 02/04/2023 Transcribe Orders [facility] Specimen Processing [address] [place] [address] Viviana Mock Social History Tobacco Use Types [...] documented as of this encounter Care Teams Mutual Funds Agent Relationship Specialty Start Date End Date Lily Her MD [address] [place] [address] PCP - General Family Medicine 09/05/22 Larry Platt MD [address] [place] [address] [email or web address] Insurance Assigned Provider 12/23/22 02/23/23 documented as of this encounter Additional Source Comments The information contained in this document represents components of the legal health record. It is not the complete legal health record.[facility]
--- OUTSIDE RECORDS SUMMARY | 2025-05-03 22:51 | XMS_ITS | Encounter Summary ---
Author Organization [facility] Address [address] [facility] [address] [place] [address] Phone Care Team Providers Care Basket Hand Weaver Name Role Phone Lily Her MD Primary Care Provider Larry Platt MD Unavailable Encounter Details Date Type Department Care Team (Late st Contact Info) Description 01/19/[address] [facility] Specimen Processing [address] [place] [address] [email or web address] Social History Tobacco Use Types Packs/Day Years [...] documented as of this encounter Care Teams Basket Hand Weaver Relationship Specialty Start Date End Date Lily Her MD [address] [place] [address] PCP - General Family Medicine 09/05/22 Larry Platt MD [address] [place] [address] [email or web address] Insurance Assigned Provider 12/23/22 02/23/23 documented as of this encounter Additional Source Comments The information contained in this document represents components of the legal health record. It is not the complete legal health record.[facility]
--- OUTSIDE RECORDS SUMMARY | 2025-05-03 22:51 | XMS_ITS | Encounter Summary ---
Author Organization [facility] Address [address] [place] [address] Phone Care Team Providers Care It Risk And Assurance Manager Name Role Phone Lily Her MD Primary Care Provider Larry Platt MD Unavailable [phone] Encounter Details Date Type Department Care Team (Late st Contact Info) Description 12/21/2022 Transcribe Orders [facility] Specimen Processing [address] [place] [address] Brigida Garcia NP [address] [place] [address] Social History Tobacco Use Types Packs/Day Years [...] documented as of this encounter Care Teams It Risk And Assurance Manager Relationship Specialty Start Date End Date Lily Her MD [address] [place] [address] PCP - General Family Medicine 09/05/22 Larry Platt MD [address] [place] [address] [email or web address] Insurance Assigned Provider 12/23/22 02/23/23 documented as of this encounter Additional Source Comments The information contained in this document represents components of the legal health record. It is not the complete legal health record.[facility]
--- OUTSIDE RECORDS SUMMARY | 2025-05-03 22:51 | XMS_ITS | Encounter Summary ---
Author Organization [facility] Address [address] [place] [address] Phone Care Team Providers Care Claims Counsel Name Role Phone Lily Her MD Primary Care Provider Larry Platt MD Unavailable [phone] Encounter Details Date Type Department Care Team (Late st Contact Info) Description 12/04/2022 Transcribe Orders [facility] Specimen Processing [address] [place] [address] Mary Cheng [address] [place] [address] [email or web address] Social History Tobacco Use Types Packs/Day Years [...] documented as of this encounter Care Teams Claims Counsel Relationship Specialty Start Date End Date Lily Her MD [address] [place] [address] PCP - General Family Medicine 09/05/22 Larry Platt MD [address] [place] [address] [email or web address] Insurance Assigned Provider 12/23/22 02/23/23 documented as of this encounter Additional Source Comments The information contained in this document represents components of the legal health record. It is not the complete legal health record.[facility]
--- OUTSIDE RECORDS SUMMARY | 2025-05-03 22:51 | XMS_ITS | Encounter Summary ---
Author Organization [facility] Address [address] [facility] [address] [place] [address] Phone Care Team Providers Care Training And Development Officer Name Role Phone Lily Her MD Primary Care Provider Encounter Details Date Type Department Care Team (Late st Contact Info) Description 05/21/2023 Transcribe Orders [facility] Specimen Processing [address] [place] [address] [place] Social History Tobacco Use Types Packs/Day [...] documented as of this encounter Care Teams Training And Development Officer Relationship Specialty Start Date End Date Lily Her MD [address] [place] [address] PCP - General Family Medicine 09/05/22 documented as of this encounter Additional Source Comments The information contained in this document represents components of the legal health record. It is not the complete legal health record.[facility]
--- OUTSIDE RECORDS SUMMARY | 2025-05-03 22:51 | XMS_ITS | Encounter Summary ---
Author Organization [facility] Address [address] [place] [address] Phone Care Team Providers Care Director Of Events Name Role Phone Lily Her MD Primary Care Provider Larry Platt MD Unavailable [phone] Encounter Details Date Type Department Care Team (Late st Contact Info) Description 01/07/[address] [facility] Specimen Processing [address] [place] [address] Viviana Mock Social History Tobacco Use Types [...] documented as of this encounter Care Teams Director Of Events Relationship Specialty Start Date End Date Lily Her MD [address] [place] [address] PCP - General Family Medicine 09/05/22 Larry Platt MD [address] [place] [address] [email or web address] Insurance Assigned Provider 12/23/22 02/23/23 documented as of this encounter Additional Source Comments The information contained in this document represents components of the legal health record. It is not the complete legal health record.[facility]
--- OUTSIDE RECORDS SUMMARY | 2025-05-03 22:51 | XMS_ITS | Encounter Summary ---
Author Organization [facility] Address [address] [place] [address] Phone Care Team Providers Care Hand Sander Name Role Phone Lily Her MD Primary Care Provider Larry Platt MD Unavailable [phone] Encounter Details Date Type Department Care Team (Late st Contact Info) Description 01/23/2023 Transcribe Orders [facility] Specimen Processing [address] [place] [address] Viviana Mock Social History Tobacco Use Types [...] documented as of this encounter Care Teams Hand Sander Relationship Specialty Start Date End Date Lily Her MD [address] [place] [address] PCP - General Family Medicine 09/05/22 Larry Platt MD [address] [place] [address] [email or web address] Insurance Assigned Provider 12/23/22 02/23/23 documented as of this encounter Additional Source Comments The information contained in this document represents components of the legal health record. It is not the complete legal health record.[facility]
--- OUTSIDE RECORDS SUMMARY | 2025-05-03 22:51 | XMS_ITS | Clinical Summary ---
Author Organization [address] [facility] Address [address] [place] [address] Phone Care Team Providers Care Dry Pan Charger Name Role Phone Lily Her MD Primary Care Provider [phone] Active Problems Problem Noted Date Diagnosed Date Chronic right shoulder pain 03/26/2024 Chronic left shoulder pain 03/26/2024 Surgical History Surgery Date Site/Laterality Comments CHOLECYSTECTOMY 2009 PROCEDURE: CA LAPAROSCOPY SURG CHOLECYSTECTOMY APPENDECTOMY 1999 PROCEDURE: [place] APPENDECTOMY SHOULDER SURGERY Right PROCEDURE: HISTORICAL SHOULDER [...] DX:Pulmonary embolism, bilat eral (HCC) Renal infarct ([facility] V24) DX:R enal infarct (HCC) Stroke ([facility] V24, [facility] V28) DX:Stroke (HCC) Diabetes mellitus ([facility] V 24, [facility] V28) DX:Diabetes mellitus (HCC) [...] Orientation Straight 09/07/2024 11 :29 AM EDT Last Filed Vital Signs Vital [...] Health Maintenance Due Date Last Done Comments Colorectal Cancer Screening: Colonoscopy 1971 Diabetes: Annual Foot Exam 10/18/1981 Diabetes: Annual Retina Eye Exam 10/18/1981 Hepatitis A Vaccines (1 of 2 - Risk 2-dose series) 10/18/1990 Hepatitis B Vaccines (1 of 3 - 19+ 3-dose series) 10/18/1990 Pneumococcal Vaccine: 50+ Years (1 of 2 - PCV) 10/18/1990 Zoster Vaccines (1 of 2) 10/18/1990 COVID-19 Vaccine (3 - Moderna risk series) 04/06/2021 03/09/2021, 02/09/2021 RSV Immunization Adult Patients (1 - Risk 50-74 years 1-dose series) 10/18/2021 HIV Screening 04/22/2022 Medicare Annual Wellness Visit 04/22/2022 Social [...] the day L sh elevation AROM at [id number] for overhead reaching tasks Generally met, varies [...] Insurance MED[place] - [place] MEDICARE Care Teams Dry Pan Charger Relationship Specialty Start Date End Date Lily Her MD [address] [place] [address] [place] [id number] PCP - General Family Medicine 01/26/22
--- OUTSIDE RECORDS SUMMARY | 2025-05-03 22:51 | XMS_ITS | Encounter Summary ---
Author Organization [facility] Address [address] [place] [address] Phone Care Team Providers Care Contact Clerk Name Role Phone Lily Her MD Primary Care Provider Larry Platt MD Unavailable [phone] Encounter Details Date Type Department Care Team (Late st Contact Info) Description 11/30/2022 Transcribe Orders [facility] Specimen Processing [address] [place] [address] Viviana Mock Social History Tobacco Use Types [...] documented as of this encounter Care Teams Contact Clerk Relationship Specialty Start Date End Date Lily Her MD [address] [place] [address] PCP - General Family Medicine 09/05/22 Larry Platt MD [address] [place] [address] [email or web address] Insurance Assigned Provider 12/23/22 02/23/23 documented as of this encounter Additional Source Comments The information contained in this document represents components of the legal health record. It is not the complete legal health record.[facility]
--- OUTSIDE RECORDS SUMMARY | 2025-05-03 22:51 | XMS_ITS | Encounter Summary ---
Author Organization [facility] Address [address] [place] [address] Phone Care Team Providers Care Station Examiner Name Role Phone Lily Her MD Primary Care Provider Encounter Details Date Type Department Care Team ([facility] st Contact Info) Description 08/26/2023 Transcribe Orders [facility] Specimen Processing [address] [place] [address] Brigida Garcia NP [address] [place] [address] Social History Tobacco Use Types Packs/Day Years [...] 8:45 AM EDT Sexual Orientation Straight 10/22/2022 8 :45 AM EDT documented as of this encounter Plan of Treatment Not on file documented as of this encounter Visit Diagnoses Not on filedocumented in this encounter 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 It is not the complete legal health record.[facility]
--- OUTSIDE RECORDS SUMMARY | 2025-05-03 22:51 | XMS_ITS | Encounter Summary ---
Author Organization [facility] Address [address] [facility] [address] [place] [address] Phone Care Team Providers Care Oracle Pl Sql Developer Name Role Phone Lily Her MD Primary Care Provider Larry Platt MD Unavailable [phone] Encounter Details Date Type Department Care Team (Late st Contact Info) Description 12/05/2022 Transcribe Orders [facility] Specimen Processing [address] [place] [address] Kalin Arango [address] [place] [address] Social History Tobacco Use Types Packs/Day Years [...] documented as of this encounter Care Teams Oracle Pl Sql Developer Relationship Specialty Start Date End Date Lily Her MD [address] [place] [address] PCP - General Family Medicine 09/05/22 Larry Platt MD [address] [place] [address] [email or web address] Insurance Assigned Provider 12/23/22 02/23/23 documented as of this encounter Additional Source Comments The information contained in this document represents components of the legal health record. It is not the complete legal health record.[facility]
--- OUTSIDE RECORDS SUMMARY | 2025-05-03 22:51 | XMS_ITS | Encounter Summary ---
Author Organization [facility] Address [address] [place] [address] Phone Care Team Providers Care Lemon Picker Name Role Phone Lily Her MD Primary Care Provider Larry Platt MD Unavailable [phone] Encounter Details Date Type Department Care Team (Late st Contact Info) Description 01/28/[address] [facility] Specimen Processing [address] [place] [address] Brigida Garcia NP [address] [place] [address] Social History Tobacco Use Types Packs/Day Years [...] documented as of this encounter Care Teams Lemon Picker Relationship Specialty Start Date End Date Lily Her MD [address] [place] [address] PCP - General Family Medicine 09/05/22 Larry Platt MD [address] [place] [address] [email or web address] Insurance Assigned Provider 12/23/22 02/23/23 documented as of this encounter Additional Source Comments The information contained in this document represents components of the legal health record. It is not the complete legal health record.[facility]
--- OUTSIDE RECORDS SUMMARY | 2025-05-03 22:51 | XMS_ITS | Clinical Summary ---
Author Organization [facility] Prior to 10/17/[address] [place] [address] Care Team Providers Care Aerosol Supervisor Name Role Phone Lily Her MD Primary Care Provider [phone] Allergies No known active allergies Medications Medication [...] Tobacco: Former Cigarettes Smokeless Tobacco: Never Comments:Quit 11/17/20 Alcohol Use Standard Drinks/Week Comments Not Currently [...] age to complete this topic Care Teams Aerosol Supervisor Relationship Specialty Start Date End Date Lily Her MD [address] [place] [address] PCP - General Family Medicine 01/26/22
--- OUTSIDE RECORDS SUMMARY | 2025-05-03 22:51 | XMS_ITS | Encounter Summary ---
Author Organization [facility] Address [address] [facility] [address] [place] [address] Phone Care Team Providers Care Mobile Sales Consultant Name Role Phone Lily Her MD Primary Care Provider Larry Platt MD Unavailable [phone] Encounter Details Date Type Department Care Team (Late st Contact Info) Description 12/24/2022 Transcribe Orders [facility] Specimen Processing [address] [place] [address] [place] Social History Tobacco Use Types Packs/Day [...] documented as of this encounter Care Teams Mobile Sales Consultant Relationship Specialty Start Date End Date Lily Her MD [address] [place] [address] PCP - General Family Medicine 09/05/22 Larry Platt MD [address] [place] [address] [email or web address] Insurance Assigned Provider 12/23/22 02/23/23 documented as of this encounter Additional Source Comments The information contained in this document represents components of the legal health record. It is not the complete legal health record.[facility]
--- OUTSIDE RECORDS SUMMARY | 2025-05-03 22:51 | XMS_ITS | Encounter Summary ---
Author Organization [facility] Address [address] [place] [address] Phone Care Team Providers Care University Registrar Name Role Phone Lily Her MD Primary Care Provider Larry Platt MD Unavailable [phone] Encounter Details Date Type Department Care Team (Late st Contact Info) Description 12/31/2022 Transcribe Orders [facility] Specimen Processing [address] [place] [address] Mary Cheng [address] [place] [address] [email or web address] Social History Tobacco Use Types Packs/Day Years [...] documented as of this encounter Care Teams University Registrar Relationship Specialty Start Date End Date Lily Her MD [address] [place] [address] PCP - General Family Medicine 09/05/22 Larry Platt MD [address] [place] [address] [email or web address] Insurance Assigned Provider 12/23/22 02/23/23 documented as of this encounter Additional Source Comments The information contained in this document represents components of the legal health record. It is not the complete legal health record.[facility]
--- OUTSIDE RECORDS SUMMARY | 2025-05-03 22:52 | XMS_ITS | Encounter Summary ---
Author Organization [facility] Address [address] [place] [address] Phone Care Team Providers Care Screening Nurse Name Role Phone Lily Her MD Primary Care Provider Larry Platt MD Unavailable [phone] Encounter Details Date Type Department Care Team (Late st Contact Info) Description 12/18/2022 Transcribe Orders [facility] Specimen Processing [address] [place] [address] Brigida Garcia NP [address] [place] [address] Social History Tobacco Use Types Packs/Day Years [...] documented as of this encounter Care Teams Screening Nurse Relationship Specialty Start Date End Date Lily Her MD [address] [place] [address] PCP - General Family Medicine 09/05/22 Larry Platt MD [address] [place] [address] [email or web address] Insurance Assigned Provider 12/23/22 02/23/23 documented as of this encounter Additional Source Comments The information contained in this document represents components of the legal health record. It is not the complete legal health record.[facility]
--- OUTSIDE RECORDS SUMMARY | 2025-05-03 22:52 | XMS_ITS | Encounter Summary ---
Author Organization [facility] Address [address] [facility] [address] [place] [address] Phone Care Team Providers Care Reel Cutter Name Role Phone Lily Her MD Primary Care Provider Encounter Details Date Type Department Care Team ([facility] st Contact Info) Description 03/27/2023 Transcribe Orders [facility] Specimen Processing [address] [place] [address] Viviana Mock Social History Tobacco Use Types [...] documented as of this encounter Care Teams Reel Cutter Relationship Specialty Start Date End Date Lily Her MD [address] [place] [address] PCP - General Family Medicine 09/05/22 documented as of this encounter Additional Source Comments The information contained in this document represents components of the legal health record. It is not the complete legal health record.[facility]
--- OUTSIDE RECORDS SUMMARY | 2025-05-03 22:52 | XMS_ITS | Encounter Summary ---
Author Organization [facility] Address [address] [facility] [address] [place] [address] Phone Care Team Providers Care Environmental Department Manager Name Role Phone Lily Her MD Primary Care Provider Larry Platt MD Unavailable [phone] Encounter Details Date Type Department Care Team (Late st Contact Info) Description 09/28/2022 Procedure Pass [facility] 4 ENDO DEPT [address] [facility], 4th [place] [address] Social History Tobacco Use Types Packs/Day Years [...] as of this encounter Care Teams Environmental Department Manager Relationship Specialty Start Date End Date Lily Her MD [address] [place] [address] PCP - General Family Medicine 09/05/22 Larry Platt MD [address] [place] [address] [email or web address] Insurance Assigned Provider 12/23/22 02/23/23 documented as of this encounter Additional Source Comments The information contained in this document represents components of the legal health record. It is not the complete legal health record.[facility]
--- OUTSIDE RECORDS SUMMARY | 2025-05-03 22:52 | XMS_ITS | Encounter Summary ---
Author Organization [facility] Address [address] [place] [address] Phone Care Team Providers Care Student Ministries Director Name Role Phone Lily Her MD Primary Care Provider Larry Platt MD Unavailable [phone] Encounter Details Date Type Department Care Team (Late st Contact Info) Description 11/09/2022 Transcribe Orders [facility] Specimen Processing [address] [place] [address] Brigida Garcia NP [address] [place] [address] Social History Tobacco Use Types Packs/Day Years [...] documented as of this encounter Care Teams Student Ministries Director Relationship Specialty Start Date End Date Lily Her MD [address] [place] [address] PCP - General Family Medicine 09/05/22 Larry Platt MD [address] [place] [address] [email or web address] Insurance Assigned Provider 12/23/22 02/23/23 documented as of this encounter Additional Source Comments The information contained in this document represents components of the legal health record. It is not the complete legal health record.[facility]
--- OUTSIDE RECORDS SUMMARY | 2025-05-03 22:52 | XMS_ITS | Encounter Summary ---
Author Organization [facility] Address [address] [place] [address] Phone Care Team Providers Care Inside Finisher Name Role Phone Lily Her MD Primary Care Provider Encounter Details Date Type Department Care Team (Late st Contact Info) Description 04/08/2023 Transcribe Orders [facility] Specimen Processing [address] [place] [address] Maria De Jesus Clark MD [address] [place] [address] [email or web address] Social History Tobacco Use Types Packs/Day [...] documented as of this encounter Care Teams Inside Finisher Relationship Specialty Start Date End Date Lily eHr MD [address] [place] [address] PCP - General Family Medicine 09/05/22 documented as of this encounter Additional Source Comments The information contained in this document represents components of the legal health record. It is not the complete legal health record.[facility]
--- OUTSIDE RECORDS SUMMARY | 2025-05-03 22:52 | XMS_ITS | Encounter Summary ---
Author Organization [facility] Address [address] [facility] [address] [place] [address] Phone Care Team Providers Care Postbed Stitcher Name Role Phone Lily Her MD Primary Care Provider Encounter Details Date Type Department Care Team ([facility] st Contact Info) Description 02/26/2023 Transcribe Orders [facility] Specimen Processing [address] [place] [address] Viviana Mock Social History Tobacco Use Types [...] documented as of this encounter Care Teams Postbed Stitcher Relationship Specialty Start Date End Date Lily Her MD [address] [place] [address] PCP - General Family Medicine 09/05/22 documented as of this encounter Additional Source Comments The information contained in this document represents components of the legal health record. It is not the complete legal health record.[facility]
--- OUTSIDE RECORDS SUMMARY | 2025-05-03 22:52 | XMS_ITS | Encounter Summary ---
Author Organization [facility] Address [address] [facility] [address] [place] [address] Phone Care Team Providers Care Clock Repair Technician Name Role Phone Lily Her MD Primary Care Provider Larry Platt MD Unavailable [phone] Encounter Details Date Type Department Care Team (Late st Contact Info) Description 12/10/2022 Transcribe Orders [facility] Specimen Processing [address] [place] [address] [email or web address] Social History Tobacco Use [...] documented as of this encounter Care Teams Clock Repair Technician Relationship Specialty Start Date End Date Lily Her MD [address] [place] [address] PCP - General Family Medicine 09/05/22 Larry Platt MD [address] [place] [address] [email or web address] Insurance Assigned Provider 12/23/22 02/23/23 documented as of this encounter Additional Source Comments The information contained in this document represents components of the legal health record. It is not the complete legal health record.[facility]
--- OUTSIDE RECORDS SUMMARY | 2025-05-03 22:52 | XMS_ITS | Encounter Summary ---
Author Organization [facility] Address [address] [place] [address] Phone Care Team Providers Care Wigs Salesperson Name Role Phone Lily Her MD Primary Care Provider Larry Platt MD Unavailable [phone] Encounter Details Date Type Department Care Team (Late st Contact Info) Description 11/29/2022 Transcribe Orders [facility] Specimen Processing [address] [place] [address] Brigida Garcia NP [address] [place] [address] Social History Tobacco Use Types Packs/Day Years [...] documented as of this encounter Care Teams Wigs Salesperson Relationship Specialty Start Date End Date Lily Her MD [address] [place] [address] PCP - General Family Medicine 09/05/22 Larry Platt MD [address] [place] [address] [email or web address] Insurance Assigned Provider 12/23/22 02/23/23 documented as of this encounter Additional Source Comments The information contained in this document represents components of the legal health record. It is not the complete legal health record.[facility]
--- OUTSIDE RECORDS SUMMARY | 2025-05-03 22:52 | XMS_ITS | Encounter Summary ---
Author Organization [facility] Address [address] [facility] [address] [place] [address] Phone Care Team Providers Care Bmw Sales Consultant Name Role Phone Lily Her MD Primary Care Provider Larry Platt MD Unavailable [phone] Encounter Details Date Type Department Care Team (Late st Contact Info) Description 09/24/2022 Procedure Pass [facility], [place] [address] [facility], 6th [place] [address] Social History Tobacco Use Types Packs/Day Years [...] documented as of this encounter Care Teams Bmw Sales Consultant Relationship Specialty Start Date End Date Lily Her MD [address] [place] [address] PCP - General Family Medicine 09/05/22 Larry Platt MD [address] [place] [address] [email or web address] Insurance Assigned Provider 12/23/22 02/23/23 documented as of this encounter Additional Source Comments The information contained in this document represents components of the legal health record. It is not the complete legal health record.[facility]
--- OUTSIDE RECORDS SUMMARY | 2025-05-03 22:52 | XMS_ITS | Clinical Summary ---
Author Organization [facility] Address [address] [place] [address] Care Team Providers Care Senior Core Java Developer Name Role Phone Unavailable Primary Care Provider [...] of 2) 10/18/2021 COVID-19 Vaccine ( - 2024-2 6 season) 2025 Influenza (#1) 2025 RSV (1 - 1-dose 75+ series) 10/18/2046 HPV Vaccine (No Doses Required) Completed Hep A Aged Out No longer eligi ble based on patient's age to complete this topic Hib Aged Out No longer eligi ble based on patient's age to complete this topic Meningococcal ACWY Aged Out No longer eligible based on patient's age to complete this topic
--- OUTSIDE RECORDS SUMMARY | 2025-05-03 22:52 | XMS_ITS | Encounter Summary ---
Author Organization [facility] Address [address] [facility] [address] [place] [address] Phone Care Team Providers Care Armor Senior Sergeant Name Role Phone Lily Her MD Primary Care Provider Larry Platt MD Unavailable [phone] Encounter Details Date Type Department Care Team (Late st Contact Info) Description 09/06/2022 Procedure Pass [facility], [place] [address] [place] [address], 2nd [place] [address] Social History Tobacco Use Types Packs/Day Years [...] documented as of this encounter Care Teams Armor Senior Sergeant Relationship Specialty Start Date End Date Lily Her MD [address] [place] [address] PCP - General Family Medicine 09/05/22 Larry Platt MD [address] [place] [address] [email or web address] Insurance Assigned Provider 12/23/22 02/23/23 documented as of this encounter Additional Source Comments The information contained in this document represents components of the legal health record. It is not the complete legal health record.[facility]
--- OUTSIDE RECORDS SUMMARY | 2025-05-03 22:52 | XMS_ITS | Encounter Summary ---
Author Organization [facility] Address [address] [address] [facility] [address] [place] [address] Phone Care Team Providers Care Compliance Examiner Name Role Phone Lily Her MD Primary Care Provider Larry Platt MD Unavailable [phone] Encounter Details Date Type Department Care Team (Late st Contact Info) Description 12/08/2022 Transcribe Orders [facility] Specimen Processing [address] [place] [address] Kalin Arango [address] [place] [address] Social History Tobacco Use Types Packs/Day Years [...] documented as of this encounter Care Teams Compliance Examiner Relationship Specialty Start Date End Date Lily Her MD [address] [place] [address] PCP - General Family Medicine 09/05/22 Larry Platt MD [address] [place] [address] [email or web address] Insurance Assigned Provider 12/23/22 02/23/23 documented as of this encounter Additional Source Comments The information contained in this document represents components of the legal health record. It is not the complete legal health record.[facility]
--- OUTSIDE RECORDS SUMMARY | 2025-05-03 22:52 | XMS_ITS | Encounter Summary ---
Author Organization [facility] Address [address] [facility] [address] [place] [address] Phone Care Team Providers Care Network Operations Technician Name Role Phone Lily Her MD Primary Care Provider Encounter Details Date Type Department Care Team ([facility] st Contact Info) Description 04/05/2023 Transcribe Orders [facility] Specimen Processing [address] [place] [address] Viviana Mock Social History Tobacco Use Types [...] documented as of this encounter Care Teams Network Operations Technician Relationship Specialty Start Date End Date Lily Her MD [address] [place] [address] PCP - General Family Medicine 09/05/22 documented as of this encounter Additional Source Comments The information contained in this document represents components of the legal health record. It is not the complete legal health record.[facility]
--- OUTSIDE RECORDS SUMMARY | 2025-05-03 22:52 | XMS_ITS | Encounter Summary ---
Author Organization [facility] Address [address] [place] [address] Phone Care Team Providers Care Sr. Social Media & Mobile Manager Name Role Phone Lily Her MD Primary Care Provider Larry Platt MD Unavailable [phone] Encounter Details Date Type Department Care Team (Late st Contact Info) Description 11/13/2022 Transcribe Orders [facility] Specimen Processing [address] [place] [address] Viviana Mock Social History Tobacco Use Types [...] documented as of this encounter Care Teams Sr. Social Media & Mobile Manager Relationship Specialty Start Date End Date Lily Her MD [address] [place] [address] PCP - General Family Medicine 09/05/22 Larry Platt MD [address] [place] [address] [email or web address] Insurance Assigned Provider 12/23/22 02/23/23 documented as of this encounter Additional Source Comments The information contained in this document represents components of the legal health record. It is not the complete legal health record.[facility]
--- OUTSIDE RECORDS SUMMARY | 2025-05-03 22:52 | XMS_ITS | Encounter Summary ---
Author Organization [facility] Address [address] [place] [address] Phone Care Team Providers Care Assistant Sales Center Manager Name Role Phone Lily Her MD Primary Care Provider Larry Platt MD Unavailable [phone] Encounter Details Date Type Department Care Team (Late st Contact Info) Description 11/16/2022 Transcribe Orders [facility] Specimen Processing [address] [place] [address] Viviana Mock Social History Tobacco Use Types [...] documented as of this encounter Care Teams Assistant Sales Center Manager Relationship Specialty Start Date End Date Lily Her MD [address] [place] [address] PCP - General Family Medicine 09/05/22 Larry Platt MD [address] [place] [address] [email or web address] Insurance Assigned Provider 12/23/22 02/23/23 documented as of this encounter Additional Source Comments The information contained in this document represents components of the legal health record. It is not the complete legal health record.[facility]
--- OUTSIDE RECORDS SUMMARY | 2025-05-03 22:52 | XMS_ITS | Encounter Summary ---
Author Organization [facility] Address [address] [facility] [address] [place] [address] Phone Care Team Providers Care Alterations Manager Name Role Phone Lily Her MD Primary Care Provider Larry Platt MD Unavailable [phone] Encounter Details Date Type Department Care Team (Late st Contact Info) Description 12/07/2022 Transcribe Orders [facility] Specimen Processing [address] [place] [address] Kalin Arango [address] [place] [address] Social History Tobacco Use Types Packs/Day Years [...] documented as of this encounter Care Teams Alterations Manager Relationship Specialty Start Date End Date Lily Her MD [address] [place] [address] PCP - General Family Medicine 09/05/22 Larry Platt MD [address] [place] [address] [email or web address] Insurance Assigned Provider 12/23/22 02/23/23 documented as of this encounter Additional Source Comments The information contained in this document represents components of the legal health record. It is not the complete legal health record.[facility]
--- OUTSIDE RECORDS SUMMARY | 2025-05-03 22:52 | XMS_ITS | Encounter Summary ---
Author Organization [facility] Address [address] [facility] [address] [place] [address] Phone Care Team Providers Care Delivery Driver/Customer Service Name Role Phone Lily Her MD Primary Care Provider Larry Platt MD Unavailable Encounter Details Date Type Department Care Team (Late st Contact Info) Description 09/24/2022 Procedure Pass [facility] [place] Lunder 6 [address] [facility], 6th [place] [address] Social History Tobacco Use Types Packs/Day Years [...] documented as of this encounter Care Teams Delivery Driver/Customer Service Relationship Specialty Start Date End Date Lily Hre MD [address] [place] [address] PCP - General Family Medicine 09/05/22 Larry Platt MD [address] [place] [address] [email or web address] Insurance Assigned Provider 12/23/22 02/23/23 documented as of this encounter Additional Source Comments The information contained in this document represents components of the legal health record. It is not the complete legal health record.[facility]
--- OUTSIDE RECORDS SUMMARY | 2025-05-03 22:52 | XMS_ITS | Encounter Summary ---
Author Organization [facility] Address [address] [facility] [address] [place] [address] Phone Care Team Providers Care Coal Grader Name Role Phone Lily Her MD Primary Care Provider Larry Platt MD Unavailable [phone] Encounter Details Date Type Department Care Team (Late st Contact Info) Description 11/28/2022 Transcribe Orders [facility] Specimen Processing [address] [place] [address] Kalin Arango [address] [place] [address] [email or web address] Social History Tobacco Use Types Packs/Day Years [...] documented as of this encounter Care Teams Coal Grader Relationship Specialty Start Date End Date Lily Her MD [address] [place] [address] PCP - General Family Medicine 09/05/22 Larry Platt MD [address] [place] [address] [email or web address] Insurance Assigned Provider 12/23/22 02/23/23 documented as of this encounter Additional Source Comments The information contained in this document represents components of the legal health record. It is not the complete legal health record.[facility]
--- OUTSIDE RECORDS SUMMARY | 2025-05-03 22:52 | XMS_ITS | Encounter Summary ---
Author Organization [facility] Address [address] [place] [address] Phone Care Team Providers Care Horticultural Nursery Assistant Name Role Phone Lily Her MD Primary Care Provider Encounter Details Date Type Department Care Team (Late st Contact Info) Description 04/16/2023 Transcribe Orders [facility] Specimen Processing [address] [place] [address] Maria De Jesus Clark MD [address] [place] [address] [email or web address] Social History Tobacco Use Types Packs/Day [...] documented as of this encounter Care Teams Horticultural Nursery Assistant Relationship Specialty Start Date End Date Lily Her MD [address] [place] [address] PCP - General Family Medicine 09/05/22 documented as of this encounter Additional Source Comments The information contained in this document represents components of the legal health record. It is not the complete legal health record.[facility]
--- OUTSIDE RECORDS SUMMARY | 2025-05-03 22:52 | XMS_ITS | Encounter Summary ---
Author Organization [facility] Address [address] [facility] [address] [place] [address] Phone Care Team Providers Care Hospice Clinical Marketer Name Role Phone Lily Her MD Primary Care Provider Larry Platt MD Unavailable [phone] Encounter Details Date Type Department Care Team (Late st Contact Info) Description 09/07/2022 Procedure Pass [facility] Cardiac US [address] [place] [address] Social History Tobacco Use Types Packs/Day Years [...] documented as of this encounter Care Teams Hospice Clinical Marketer Relationship Specialty Start Date End Date Lily Her MD [address] [place] [address] PCP - General Family Medicine 09/05/22 Larry Platt MD [address] [place] [address] [email or web address] Insurance Assigned Provider 12/23/22 02/23/23 documented as of this encounter Additional Source Comments The information contained in this document represents components of the legal health record. It is not the complete legal health record.[facility]
--- OUTSIDE RECORDS SUMMARY | 2025-05-03 22:52 | XMS_ITS | Encounter Summary ---
Author Organization [facility] Address [address] [facility] [address] [place] [address] Phone Care Team Providers Care Electric Tape Slitter Name Role Phone Lily Her MD Primary Care Provider Encounter Details Date Type Department Care Team ([facility] st Contact Info) Description 09/16/2023 Transcribe Orders [facility] Specimen Processing [address] [place] [address] Lien Social History Tobacco Use Types Packs/Day Years [...] documented as of this encounter Care Teams Electric Tape Slitter Relationship Specialty Start Date End Date Lily Her MD [address] [place] [address] PCP - General Family Medicine 09/05/22 documented as of this encounter Additional Source Comments The information contained in this document represents components of the legal health record. It is not the complete legal health record.[facility]
--- OUTSIDE RECORDS SUMMARY | 2025-05-03 22:52 | XMS_ITS | Encounter Summary ---
Author Organization [facility] Address [address] [place] [address] Phone Care Team Providers Care Notary Public Name Role Phone Lily Her MD Primary Care Provider Encounter Details Date Type Department Care Team (Late st Contact Info) Description 04/09/2023 Transcribe Orders [facility] Specimen Processing [address] [place] [address] Maria De Jesus Clark MD [address] [place] [address] [email or web address] Social History Tobacco Use Types Packs/Day [...] documented as of this encounter Care Teams Notary Public Relationship Specialty Start Date End Date Lily Her MD [address] [place] [address] PCP - General Family Medicine 09/05/22 documented as of this encounter Additional Source Comments The information contained in this document represents components of the legal health record. It is not the complete legal health record.[facility]
--- OUTSIDE RECORDS SUMMARY | 2025-05-03 22:52 | XMS_ITS | Clinical Summary ---
Author Organization [facility] Address [address] [employer] [address] [address] Phone Care Team Providers Care Safety And Health Consultant Name Role Phone Lily Her MD Primary Care Provider Allergies Active Allergy Reactions Criticality Noted Date Comments Mvierfm-Fih-Jsf Reductase Inhibitors Other (See Comments) 09/09/2022 Necrotizing [...] times a day. 70 g 11/07/19 Active xifjgomt-idl-ntqoeg s fumarate 15 mg iron Tab Take [...] Moderna risk series) 04/06/2021 03/09/2021, 02/09/2021 RSV VACCINE (1 - Risk 50-74 years 1-dose series) 10/18/2021 ALKALINE PHOSPHATASE LEVEL 05/15/202405/15, 03/08/2023, 11/13/2022, Additional history exists CREATININE LEVEL 05/15/2024 05/15/2023, , 11/13/2022, Additional history exists POTASSIUM LEVEL 05/15/2024 05/15/2023, 02/18, 11/13/2022, Additional history exists DEPRESSION SCREENING 06/29/2024 06/29/2023 INFLUENZA VACCINE (#1) 2024 SCREENING FOR DIABETES 05/15/2026 05/15/2023 LIPID PANEL 09/12/2027 09/11/2022 COLONOSCOPY 09/28/2032 09/28/2022 COLORECTAL CANCER SCREENING 09/28/2032 HEPATITIS C SCREENING Completed 09/07/2022 , 09/07/2022, 09/07/2022 HEPATITIS A VACCINES Aged Out No [...] this topic Medical Devices Implanted Type Area Director Instructional Material Device Identifier Shelf Expiration Date Model / Serial / Lot Screw Plate Description:7 screw plates r ight fibula Procedures Procedure Name Priority Date/Time Associated Diagnosis Comments LFTS (HEPATIC PANEL) Routine 05/15/2023 6:08 AM EST BASIC METABOLIC PANEL (BMP) Routine 05/15/2023 6:08 AM EST ENDOSCOPY, COLON 09/28/2022 10:0 9 AM EDT LIPID PANEL Routine 09/11/2022 5:45 AM EDT HEPATITIS C ANTIBODY, QUALITATIVE Routine 09/07/2022 4:40 PM EDT from Last 3 Months or Most Recently Relevant to Health Maintenance Results * (ABNORMAL) LFTs (hepatic panel) (05/15/2023 6:08 AM EST) ALBUMIN 3.6 3.5 - 5.2 g/dL [facility] TOTAL BILIRUBIN 0.2 0.0 - 1.2 mg/dL [facility] DIRECT BILIRUBIN <0.2 0.0 - 0.2 mg/dL [facility] ALKALINE PHOSPHATASE 89 40 - 130 U/L [facility] AST 43(H) 15 - 41 U/L [facility] ALT 35 10 - 50 U/L [facility] TOTAL PROTEIN 7.7 6.1 - 8.1 g/dL [facility] GLOBULIN 4.1 1.9 - 4.1 g/dL [facility] 05/15/2023 6:08 AM EST 05/15/2023 9:27 AM EST us Maria Antoniasilla A Fondi BUSINESS CONTINUITY CONSULTANT LAB BLOOD BKR ORDERABLES Fin al Result Performing Organization Address [facility] de Phone Number [address] [phone] * (ABNORMAL) Basic metabolic panel (05/15/2023 6:08 AM EST) SODIUM 138 136 - 145 mmol/L [facility] CHLORIDE 100 98 - 107 mmol/L [facility] POTASSIUM 4.2 3.6 - 5.1 mmol/L [facility] CO2 27 22 - 32 mmol/L [facility] BUN 10 6 - 20 mg/dL [facility] CREATININE 0.39(L) 0.6 - 1.3 mg/dL [facility] GLUCOSE 125(H) 65 - 99 mg/dL [facility] CALCIUM 9.2 8.9 - 10.3 mg/dL [facility] EGFR >120 60 - 128 mL/min/1.7 3m2 [facility] Comment:Estimated glomerular filtration rate calculated using the CKD-EPI refit equation. ANION GAP 11 3 - 17 mmol/L [facility] 05/15/2023 6:08 AM EST 05/15/2023 9:27 AM EST us Brigida A Fondi BUSINESS CONTINUITY CONSULTANT LAB BLOOD BKR ORDERABLES Fin al Result Performing Organization Address City/[facility]/ZIP Co de Phone Number [place] [id number] [phone] * ENDOSCOPY, COLON (09/28/2022 10:09 AM EDT) 09/28/2022 10:0 9 AM EDT Narrative Transcriptions Mara Reyna MD - 09/28/2022 10:09 AM EDT Gastrointestinal Endoscopy Unit Patient Name: Lawrence Santoyo Exam Date: 09/28/2022 10:09 AM Date of : 1970 Admit Type: Inpatient Age: 51 Room: [address] 09-R Gender: Male Note Status: Finalized Attending [...] bowel preparation was evaluated using the BBPS ([place] Bowel Preparation Scale) with scores of: Right [...] procedure, including non-yeager portions. Mara Reyna MD, [id number] 09/28/2022 11:14:12 AM The attending physician was present throughout the entire procedure. Brock Sherman, , [id number] Number of Addenda: 0 Note Initiated On: 09/28/2022 10:09 AM Brock Sherman MD GI PROCEDURE ORDERABLES Final Result * (ABNORMAL) Lipid panel (09/11/2022 5:45 AM EDT) HDL 49 35 - 100 mg/dL [facility] CHOLESTEROL 168 <200 mg/dL [facility] TRIGLYCERIDES 192(H) 40 - 150 mg/dL [facility] LDL 81 50 - 129 mg/dL [facility] CARDIAC RISK RATIO 3.4 0.0 - 5.0 [facility] NON-HDL CHOLESTEROL 119 mg/dL [facility] Comment:NCEP ATP III guideli michela suggest a non-HDL cholesterol goal 30 mg/dl higher than the patient-specific LDL goal. Blood 09/11/2022 5:45 AM EDT 09/11/2022 5:57 AM EDT Harper Givens CNP LAB BLOOD BKR ORDERABL ES Final Result [address] [address] * Hepatitis C antibody, qualitative (09/07/2022 4:40 PM EDT) HCV ANTIBODY Negative Negative [facility] Comment:Antibodies to HCV no t detected. Does not exclude the possibility of exposure to HCV. 09/07/2022 4:40 PM EDT 09/07/2022 11:28 PM EDT Result [facility] Dale Page MD, PhD LAB BLOOD BKR ORDERA BLES Final Result [address] [address] from Last 3 Months or Most Recently Relevant to Health Maintenance Insurance [employer] ACO ACO ACO Advance Directives For more information, please contact: [phone] (9AM - 5PM Karyn/[facility], Saturday-Saturday) Documents on File Type Date Recorded Patient Remote Sensing Technologist Expl anation Healthcare Proxy 09/09/2022 4:27 PM * Full Code (Latest Code Status on File) Date Activated Date Inactivated Comments 10/05/2022 5:14 PM Question Answer Comments Code Status Confirmed With: Other (specify below ) * Full Code Date Activated Date Inactivated Comments 09/06/2022 12:32 PM 10/05/2022 5:14 PM Question Answer Comments Code Status Confirmed With: Patient Care Teams Safety And Health Consultant Relationship Specialty Start Date End Date Lily Her MD [address] [place] [address] PCP - General Family Medicine 09/05/22 Additional Source Comments The information contained in this document represents components of the legal health record. It is not the complete legal health record.[facility]
--- OUTSIDE RECORDS SUMMARY | 2025-05-03 22:52 | XMS_ITS | Data Portability ---
Author Organization [place] [facility] Address [address] [place] [phone] Assessment Encounter Date Assessment Date Assessment LastModified [...] Address Organization Details Recorded Time Acute tonsillitis 78441588 Active 2015 Acute tonsil litis, unspec ified; Note: Date Diagno sed: 12/26/19 16 9:51 AM (J03.9 0) Not Available [employer] 4 03:25:17 Sensorineural hearing loss 64178395 Active 2024 Summer barfield [place] - [facility] 5 13:47:22 Sensorineural hearing loss of bilateral ears 007695352 Active 2024 MAGY DAMIAN MD [address] [place] [address],[address], [phone] , [facility] - [facility] 5 17:08:09 Problem Notes None recorded. Procedures Surgical History Date Name Laterality Status Provider Name and Address Organization Details Recorded Time 06/22/19 Comp Audio with Tymps - 32378 & 50474 completed Summer Booker [place] - [facility] 06/22/2024 13:47:10 Cholecystectomy completed MAGY DAMIAN MD [address] [place] [address],[address], [phone], [facility] - [facility] 06/22/2024 17:05:44 Appendectomy completed MAGY DAMIAN MD [address] [place] [address],[address], [phone], [facility] - [facility] 06/22/2024 17:06:03 Imaging Results None recorded. Procedure Notes None recorded. Medical Equipment None Reported. Allergies Allergen ID Allergen Name Allergen Category Reaction Reaction Severity Criticality Documentation Date Start Date Code Code System Note Provider Name and Address Organization Details Recorded Time 187731 Product containin g 3-hydroxy -3-methyl glutaryl- coenzyme A reductase inhibitor (product) medicatio n Not available Not available Not available 06/22/2024 60453 009 SNOMED Lien Chase barfield [place] [facility] 13:55:02 Medications Name Sig Start Date Stop Date Status Note LastModified by Organization Details LastModified Time gabapenti n 400 mg capsule TAKE 1 CAPSULE BY MOUTH 3 TIMES A DAY active Not Available Not Available No t Available clindamyc in HCl 150 mg capsule 06/22 completed Medicati on ID: [id number] D uration Value: 10 Brand Name: clindamy [...] mg tablet 06/22 completed Medicati on ID: [id number] D uration Value: 30 Brand Name: pravasta [...] Updated DateTime 06/22/2024 182.88 cm 57.6 kg/m2 876277.76 g Lien Stone [place] - [facility] 06/22/2024 14:15:54 Social History None recorded. Functional Status None recorded. Mental Status None recorded. Family History Nothing Reported. Medical History Condition Response Diabetes Y Arthritis Y Stroke Y GERD/Reflux Y Past Encounters Encounter ID Performer Location Encounter Start Date Encounter Closed Date Diagnosis/Indication Diagnosis SNOMED-CT Code Diagnosis ICD10 Code Diagnosis IMO Codes Diagnosis Note [id number] MAGY DAMIAN MD [facility] [address] [address] 06/22/2024 13:15:52 06/22/2024 16:41:09 Sensorineural hearing loss 23243978 H90.41 Audiologic al evaluation results: Right ear: Essentiall y normal through 4 kHz sloping to a mild sensorineu ral hearing loss with excellent word recognitio n. Left ear: Normal hearing with excellent word recognitio n. Tympanomet ry: Right Ear:Type A Left Ear:Type A [id number] MICHAEL LOBO [facility] [address] [address] 06/22/2024 13:46:33 06/23/2024 09:01:55 Sensorineural hearing loss 07533207 H90.41 Audiologic al evaluation results: Right ear: [...] [place] Member ID Guarantor Name 06/22/2024 1 [facility] [id number] Lawrence Santoyo [id number] Lawrence Santoyo 06/22/2024 1 [place]: [employer] Lawrence Santoyo [id number] Lawrence Santoyo 08/20/2024 2 [place]: [facility] Lawrence Santoyo [id number] Lawrence M Szarka Notes Date Note Type Note Provider Name and Address Organization Details Recorded Time 06/22/2024 text/html Audiological Evaluation HPIReported by Patient Summer barfield [place] - [facility] 06/22/2024 13:48:56 06/22/2024 text/html ROS as noted in the HPI 53 yo M presents for evaluation of his ears. blockage a few months ago, cleared out in doctor's office usually not an issue for cerumen no tinnitus, hearing ok no pain in ears MAGY DAMIAN MD [address] [place] [address], [phone], [facility] - [facility] 06/22/2024 17:16:50
--- OUTSIDE RECORDS SUMMARY | 2025-05-03 22:52 | XMS_ITS | Encounter Summary ---
Author Organization [facility] Address [address] [facility] [address] [place] [address] Phone Care Team Providers Care Yacht Rigger Name Role Phone Lily Her MD Primary Care Provider Encounter Details Date Type Department Care Team ([facility] st Contact Info) Description 03/11/2023 Transcribe Orders [facility] Specimen Processing [address] [place] [address] Viviana Mock Social History Tobacco Use Types [...] documented as of this encounter Care Teams Yacht Rigger Relationship Specialty Start Date End Date Lily Her MD [address] [place] [address] PCP - General Family Medicine 09/05/22 documented as of this encounter Additional Source Comments The information contained in this document represents components of the legal health record. It is not the complete legal health record.[facility]
--- OUTSIDE RECORDS SUMMARY | 2025-05-03 22:52 | XMS_ITS | Encounter Summary ---
Author Organization [facility] Address [address] [place] [phone] Phone Care Team Providers Care Evaporator Operator Name Role Phone Lily Her MD Primary Care Provider Larry Platt MD Unavailable [phone] Encounter Details Date Type Department Care Team (Late st Contact Info) Description 11/27/2022 Transcribe Orders [facility] Specimen Processing [address] [place] [address] Brigida Garcia NP [address] [place] [phone] Social History Tobacco Use Types Packs/Day Years [...] documented as of this encounter Care Teams Evaporator Operator Relationship Specialty Start Date End Date Lily Her MD [address] [place] [address] PCP - General Family Medicine 09/05/22 Larry Platt MD [address] [place] [phone] [email or web address] Insurance Assigned Provider 12/23/22 02/23/23 documented as of this encounter Additional Source Comments The information contained in this document represents components of the legal health record. It is not the complete legal health record.[facility]
[2025-05-03 22:56] VITALS: BP 124/82; PULSE 87; RESP 20; TEMP 36.7; O2SAT 96
[2025-05-03 22:57] VITALS: BP 124/82; PULSE 87; RESP 20; TEMP 36.7; O2SAT 96
== END 2025-05-03 23:16 | disposition home or self-care (01) ==
PROVIDERS: Emergency Provider Emergency Medicine
DX: G51.0 Bell's palsy (principal); E11.9 Type 2 diabetes mellitus without complications; I10 Essential (primary) hypertension; E78.00 Pure hypercholesterolemia, unspecified; F17.210 Nicotine dependence, cigarettes, uncomplicated; Z86.73 Personal history of transient ischemic attack (TIA), and cerebral infarction without residual deficits; Z79.01 Long term (current) use of anticoagulants
CPT/HCPCS: 36415; 80048; 80076; 85025; 85610; 93005; 99283; 99284

== ENCOUNTER → 2025-05-03 20:50 | Outpatient (BNV) | payer MEDICARE, MEDICAID, SELFPAY | PROVIDERS: Emergency Provider Emergency Medicine; Visit Provider Internal Medicine Cardiovascular Disease | DX: G51.0 Bell's palsy (principal) | CPT/HCPCS: 93010 ==

== ENCOUNTER 2025-05-04 08:10 | Day surgery (SDC) | payer MEDICARE, MEDICAID, SELFPAY ==
[2025-04-28 12:53] VITALS: BMI 58.9
[2025-04-28 12:56] VITALS: BP 124/72; PULSE 77; RESP 17; O2SAT 96
--- NOTE | 2025-04-28 13:08 | P.CONAN_ITS ---
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 No CP or SOB, wheelchair bound Autoimmune necrotizing myositis; on Imuran, gammaguard; dx in 2022, initially had respiratory complications requiring intubation, trach. On chronic percocet 10 mg 4 times for pain H/O PE: on warfarin, follows with 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 Tobacco use: not every day PMFSH Active Problems Active Problems: All Active Problems (Updated 04/28/25 @ 12:50 by Zeina Kimball RN) Rotator cuff insufficiency of left shoulder (Acute) Left shoulder pain (Acute) Chronic narcotic use (Acute) Other inflammatory and immune myopathies, NEC (Acute) Foreign body (FB) in soft tissue (Acute) Necrotizing myositis (Acute) Statin-induced myositis (Acute) Past Medical History Medical History Peripheral vision loss Wheelchair dependent Vomiting and diarrhea GERD (gastroesophageal reflux disease) On anticoagulant therapy Elevated cholesterol HTN (hypertension) Sleep apnea Renal infarct Patent foramen ovale Morbid obesity Fatty liver Diabetes TIA (transient ischemic attack) 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 History of transient ischemic attack History of pulmonary embolism Foreign body (FB) in soft tissue Necrotizing myositis Statin-induced myositis Family History Family History Mother Myositis Family history of problems with anesthesia: No Surgical History Surgical History Hx of tracheostomy (~2022) History of esophagogastroduodenoscopy (EGD) H/O colonoscopy History of surgery on lower extremity Hx of neck surgery History of appendectomy History of cholecystectomy History of Problems with Anesthesia: No Social History Social History Household Members: Family Housing: House Are you a primary acute care nurse practitioner to a significant other at home: No Do you presently have visiting nurse or other home services: No Alcohol intake: current Alcohol intake frequency: does not drink Patient Tobacco Use Status: Current everyday Tobacco user Tobacco use type: Cigarette Cigarettes Per Day: 4 Years Smoked: 30 Use of substances other than those prescribed or required for medical reasons: No Have you been hit, kicked, punched, or otherwise hurt by someone within the past year? If so, by whom?: No Advance Directives: No Advance Directives Information Provided: Yes Advance Directives on File: No Meds Allergies Allergy/AdvReac Type Severity Reaction Status Date / Time atorvastatin Allergy Mild Unknown Verified 05/03/25 20:49 Home Medications ?Medication ?Instructions ?Recorded ?Confirmed ?Last Taken ?Type gabapentin 300 mg capsule 300 mg PO TID 03/16/2404/2805/04/25 06:00 History losartan 25 mg tablet 25 mg PO DAILY 03/16/2404/19 Unknown History metoprolol tartrate 25 mg tablet 25 mg PO BID 03/16/24 04/28/25 Unknown History duloxetine 60 mg capsule,delayed 60 mg PO DAILY 04/28/25 05/04/25 06:00 History release omeprazole 40 mg capsule,delayed 40 mg PO DAILY 04/28/25 05/04/25 06:00 History release oxycodone-acetaminophen 10 mg-325 1 tab PO QID PRN Yazmin n 05/27/24 04/28/25 05/04/25 06:00 History mg tablet warfarin 2.5 mg tablet 2.5 mg PO DAILY 05/27/2403/1304/28/25 History warfarin 5 mg tablet 5 mg PO DAILY 05/27/2404/2804/28/25 History Gammagard 90 g IV Q2W 04/28/25 Unknow n History Exam Height,Weight and Vital Signs: Height 6 ft Weight 197 kg Last Vital Signs Pulse 77 04/28/25 12:56 Resp 17 04/28/25 12:56 BP 124/72 04/28/25 12:56 Pulse Ox 96 04/28/25 12:56 O2 Del Method Room Air 04/28/25 12:56 Pertinent Lab Results Pertinent Lab Results: Laboratory Tests 01/27/25 11:27 WBC 6.5 RBC 4.78 Hgb 13.3 L Hct 40.8 L Plt Count 216 Sodium 140 Potassium 4.1 BUN 18 H Creatinine 0.65 Narrative Narrative: EKG 07/2023 Normal sinus, rate 83 ECHO 2022 THe left ventricular size is normal. The left ventricular wall thickness is mildly increased. The left ventricle is poorly visualized. Normal LV systolic function. EF 55-65% There are no regional wall motion abnormalities. Unable to assess diastolic func tion. The aortic valve is trileaflet and normal in structure and function. There is no aortic stenosis or insufficiency. The right ventricle is poorly visualized. There is no significant pericardial effusion Airway Mallampati Class: IV TM Dist: >3cm Neck ROM: Full Loose/Missing/Broken Teeth: Upper (C in front) Heart: RRR Lungs: CTAB Other: mild b/l LE edema with venous stasis skin changes Assessment and Plan Final Anesthetic Review Family History of Problems with Anesthesia: No History of Problems with Anesthesia: No Documented by User: Jasson Farias MD 05/04/25 09:25 [facility] Past Medical History Medical History Peripheral vision loss Wheelchair dependent Vomiting and diarrhea GERD (gastroesophageal reflux disease) On anticoagulant therapy Elevated cholesterol HTN (hypertension) Sleep apnea Renal infarct Patent foramen ovale Morbid obesity Fatty liver Diabetes TIA (transient ischemic attack) 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 History of transient ischemic attack History of pulmonary embolism Foreign body (FB) in soft tissue Necrotizing myositis Statin-induced myositis Family History Family History Mother Myositis Surgical History Surgical History Hx of tracheostomy (~2022) History of esophagogastroduodenoscopy (EGD) H/O colonoscopy History of surgery on lower extremity Hx of neck surgery History of appendectomy History of cholecystectomy Social History Social History Household Members: Family Housing: House Are you a primary acute care nurse practitioner to a significant other at home: No Do you presently have visiting nurse or other home services: No Alcohol intake: current Alcohol intake frequency: does not drink Patient Tobacco Use Status: Current everyday Tobacco user Tobacco use type: Cigarette Cigarettes Per Day: 4 Years Smoked: 30 Use of substances other than those prescribed or required for medical reasons: No Have you been hit, kicked, punched, or otherwise hurt by someone within the past year? If so, by whom?: No Advance Directives: No Advance Directives Information Provided: Yes Advance Directives on File: No Meds Allergies Allergy/AdvReac Type Severity Reaction Status Date / Time atorvastatin Allergy Mild Unknown Verified 05/03/25 20:49 Home Medications ?Medication ?Instructions ?Recorded ?Confirmed ?Last Taken ?Type gabapentin 300 mg capsule 300 mg PO TID 03/16/2404/2805/04/25 06:00 History losartan 25 mg tablet 25 mg PO DAILY 03/16/2404/19 Unknown History metoprolol tartrate 25 mg tablet 25 mg PO BID 03/16/24 04/28/25 Unknown History duloxetine 60 mg capsule,delayed 60 mg PO DAILY 04/28/25 05/04/25 06:00 History release omeprazole 40 mg capsule,delayed 40 mg PO DAILY 04/28/25 05/04/25 06:00 History release oxycodone-acetaminophen 10 mg-325 1 tab PO QID PRN Yazmin n 05/27/24 04/28/25 05/04/25 06:00 History mg tablet warfarin 2.5 mg tablet 2.5 mg PO DAILY 05/27/2403/1304/28/25 History warfarin 5 mg tablet 5 mg PO DAILY 05/27/2404/2804/28/25 History Gammagard 90 g IV Q2W 04/28/25 Unknow n History Exam Exam Date and Time: 05/04/2025 Assessment and Plan Assessment Anesthesia Assessment: Anesthesia Plan Discussed Final Anesthetic Review NPO: Yes ASA Class: III Final Preanesthetic Review: No Changes in Pt Med Stat, Meds/Allgs Chart Reviewed, Consent Obtained/Reviewed and Anes Risks/Benef Reviewed Patient Risk: Intermediate Procedure Risk: Low Anesthetic Plan Anesthetic Plan: MAC: Disposition: Standard PACU
--- NOTE | ~2025-05-04 | FL_ITS ---
EXAMINATION: FLUOROSCOPY GUIDANCE FOR NEEDLE PLACEMENT CLINICAL INFORMATION: removal foreign body right upper arm COMPARISON: None available. TECHNIQUE: Intraoperative fluoroscopic guidance was provided for foreign body removal in the right upper arm. FINDINGS: 2 submitted fluoroscopic images of the mid shaft of a long bone. No radiopaque foreign body seen. See procedure note for detailed findings. FLUOROSCOPY TIME: 0 minutes DOSE AREA PRODUCT: 0.046 Gy-cm2 FL/FL guidance in OR IMPRESSION: Intraoperative fluoroscopy guidance for foreign body removal. Electronically signed by: Courtney Junior MD 05/04/2025 11:14 AM [facility]
[2025-05-04 08:31] VITALS: BMI 61.3
[2025-05-04 08:33] VITALS: BP 134/87; PULSE 117; RESP 18; TEMP 36.8; O2SAT 94
--- NOTE | 2025-05-04 08:38 | PC.NURSE ---
pt seen in the ed yesterday for right side facial droop dx with nieves palsy
[2025-05-04] MEDS: Lactated Ringers 1,000 ML 100 ML IVCONT (08:47)
--- NOTE | 2025-05-04 09:47 | MHC.SHP ---
Pre-Procedural Eval Section A - 24 Hr Update-Section A only Date of Service: 05/04/25 The patient is an INPATIENT: No The patient has been examined within 24 hours of the surgical procedure. The History & Physical has been completed within 30 days and I have reviewed it.: Yes Section B - Complete if H&P > 30 days Chief Complaint: Residual foreign body in soft tissue Allergies: Allergies Allergy/AdvReac Type Severity Reaction Status Date / Time atorvastatin Allergy Mild Unknown Verified 05/03/25 20:49 Plan I have reviewed the history and physical and performed a pertinent physical examination on my patient. No changes have occurred unless specified. Time Spent With Patient Time: Total time managing care of this patient today ____ minutes.
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
[2025-05-04 10:47] VITALS: BP 133/86; PULSE 95; RESP 16; TEMP 36.4; O2SAT 95
[2025-05-04 11:02] VITALS: BP 114/62; PULSE 91; RESP 18; TEMP 36.5; O2SAT 95
== END 2025-05-04 11:30 | disposition home or self-care (01) ==
PROVIDERS: Visit Provider Surgery
PROC: (CPT 24200; principal; 2025-05-04 10:00)
DX: M79.5 Residual foreign body in soft tissue (principal); G72.0 Drug-induced myopathy; T46.6X5A Adverse effect of antihyperlipidemic and antiarteriosclerotic drugs, initial encounter; E11.9 Type 2 diabetes mellitus without complications; E66.01 Morbid (severe) obesity due to excess calories; G89.29 Other chronic pain; M25.512 Pain in left shoulder; G51.0 Bell's palsy; Z86.73 Personal history of transient ischemic attack (TIA), and cerebral infarction without residual deficits; Z79.01 Long term (current) use of anticoagulants; Z99.3 Dependence on wheelchair; Z79.899 Other long term (current) drug therapy; Z88.8 Allergy status to other drugs, medicaments and biological substances; Z90.49 Acquired absence of other specified parts of digestive tract; Z87.891 Personal history of nicotine dependence
CPT/HCPCS: 24200; 88300; J0131; J0616; J0690; J2003; J2250; J2405; J2795; J3010

== ENCOUNTER → 2025-05-04 08:10 | Outpatient (BNV) | payer MEDICARE, MEDICAID, SELFPAY | PROVIDERS: Visit Provider Surgery | DX: S40.851D Superficial foreign body of right upper arm, subsequent encounter (principal) ==

== ENCOUNTER 2025-05-18 10:09 | Emergency (ER) | payer MEDICARE, MEDICAID, SELFPAY ==
--- OUTSIDE RECORDS SUMMARY | 2024-03-10 14:00 | XMS_ITS | Encounter Summary ---
Author Organization [place] [address] Care Team Providers Care Flight Test Supervisor Name Role Phone Lily Her MD Primary Care Provider [phone] Encounter Details Date Type Department Care Team (Late st Contact Info) Description 03/10/2024 3:00 PM EDT Hospital Encounter TH HISTORIC ENCOUNTERS EASTERN CONVERSION ONLY Taryn Maldonado, MALTED MILK MIXER [address] [place] [address] Social History Tobacco Use Types Packs/Day Years Used Date Smoking Tobacco: Former Cigarettes 1 Q uit: 11/07/2020 Smokeless Tobacco: Never Alcohol Use Standard Drinks/Week Comments Not Currently 0 (1 standard drink = 0.6 oz pur e alcohol) Sex and Gender Information Value Date Recorded Sex Assigned at Male 09/07/2024 11:29 AM EDT Legal Sex Male 7:49 AM EST Gender Identity Male 09/07/2024 11:29 AM EDT Sexual Orientation Straight 09/07/2024 11 :29 AM EDT documented as of this encounter Plan of Treatment Not on file documented as of this encounter Goals Goal Patient Goal Type Associated Problems Recent Progress Patient-Stated? Author Pt goal General Improving(11/2023 12:30 PM EST) Yes Lien Hoang, OT Note: Improved BUE strength SHORT TERM (8 visits) General Improving(11/2023 12:30 PM EST) Yes Lien Hoang, OT Note: Indep HEP w/ progressions (AAROM, progress to strength) MET R sh elevation AROM at least 120 for overhead reaching tasks Generally met, varies 115-120 depending on the day L sh elevation AROM at for overhead reaching tasks Generally met, varies 115-120 depending on the day R shldr fcnl IR to at least low lumbar for ease of clothes manage/hygiene Not met achieves buttocks level L shldr fcnl IR to at least low lumbar for ease of clothes manage/hygiene Not met achieves high buttocks level L shldr strength at least 4/5 for ease of transfers and w/c mobility MET documented as of this encounter Visit Diagnoses Not on filedocumented in this encounter Care Teams Flight Test Supervisor Relationship Specialty Start Date End Date Lily Her MD [address] [place] [phone] PCP - General Family Medicine 01/26/22 documented as of this encounter
--- OUTSIDE RECORDS SUMMARY | 2024-03-10 15:53 | XMS_ITS | Encounter Summary ---
Author Organization [place] [address] Care Team Providers Care Financial Investment Manager Name Role Phone Lily Her MD Primary Care Provider [phone] Encounter Details Date Type Department Care Team (Late st Contact Info) Description 03/10/2024 4:53 PM EDT Hospital Encounter TH HISTORIC ENCOUNTERS EASTERN CONVERSION ONLY Taryn Maldonado, PROGRAMMABLE LOGIC CONTROLLER ASSEMBLER [address] [place] [address] Social History Tobacco Use Types Packs/Day Years [...] on filedocumented in this encounter Care Teams Financial Investment Manager Relationship Specialty Start Date End Date Lily Her MD [address] [place] [phone] PCP - General Family Medicine 01/26/22 documented as of this encounter
--- NOTE | ~2025-05-18 | CT_ITS ---
EXAMINATION: CT ABDOMEN PELVIS WITHOUT IV CONTRAST HISTORY: N/V/D LLQ pain COMPARISON: There are no prior studies available for comparison. TECHNIQUE: CT scan of the abdomen and pelvis was performed without contrast using standard departmental protocol. Coronal and sagittal reformatted images were generated and reviewed. Oral contrast material was not administered at the request of the referring physician. This CT exam was performed with one or more of the following dose reduction techniques: automated exposure control, adjustment of the mA and/or kV according to patient size, use of iterative reconstruction technique. DLP: 1571 mGy-cm FINDINGS: LOWER CHEST: The visualized lung bases are clear. There is no pleural effusion. CARDIOVASCULATURE: The heart is normal in size. There is no pericardial effusion. LIVER: The liver is normal in size and contour. The liver has an unremarkable unenhanced appearance. GALLBLADDER / BILE DUCTS: The gallbladder is surgically absent. There is no intra or extrahepatic biliary ductal dilatation. SPLEEN: The spleen is enlarged, but has an unremarkable unenhanced appearance. PANCREAS: There is fatty atrophy of the pancreas. ADRENAL GLANDS: Unremarkable. KIDNEYS/RETROPERITONEUM: No renal or ureteral calculi are identified. There is no hydronephrosis or hydroureter. LYMPH NODES: No retroperitoneal lymphadenopathy is identified in the abdomen or pelvis. VASCULATURE: The abdominal aorta demonstrates atherosclerotic calcification, but is normal in caliber. MESENTERY/PERITONEUM: No free fluid. No masses. There is no free intraperitoneal gas. STOMACH: The stomach is collapsed, limiting evaluation. SMALL BOWEL: The small bowel is normal in caliber. COLON: There is a moderate amount of formed stool throughout the colon. APPENDIX: The appendix is surgically absent. URINARY BLADDER/PELVIC ORGANS: The urinary bladder is unremarkable. The prostate is normal in size. BONES / SOFT TISSUES: No suspicious bony or soft tissue abnormalities. CT/CT abdomen pelvis wo IV con IMPRESSION: 1. Moderate amount of stool throughout the colon. 2. Splenomegaly. Electronically signed by: Soto Green MD 05/18/2025 11:34 AM [facility]
--- NOTE | 2025-05-18 10:20 | ED.GENADULT ---
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 Pain is localized to his LLQ. Denies any hx of abdominal surgeries. Reports 3-4 episodes of nonbloody diarrhea and vomitus. He states his girlfriend may be ill at home with similar symptoms. Reports similar symptoms intermittently over the last 6-8 months. He has not been evaluated for this before. Denies recent antibiotics. He follows with Dr. Chelsie Juarez for his IVIG therapy since 2022 - has infusions every two weeks. Reports his last infusion was approx 2 weeks ago. Denies fever, chills, chest pain, urinary sx. Related Data Home Medications ?Medication ?Instructions ?Recorded ?Confirmed gabapentin 300 mg capsule 300 mg PO TID 03/16/24 04/28/25 losartan 25 mg tablet 25 mg PO DAILY 03/16/24 04/28/25 metoprolol tartrate 25 mg tablet 25 mg PO BID 03/16/24 04/28/25 duloxetine 60 mg capsule,delayed 60 mg PO DAILY 05/27/24 04/28/25 release omeprazole 40 mg capsule,delayed 40 mg PO DAILY 05/27/24 04/28/25 release oxycodone-acetaminophen 10 mg-325 1 tab PO QID PRN Pain 05/27/24 04/28/25 mg tablet warfarin 2.5 mg tablet 2.5 mg PO DAILY 05/27/24 04/28/25 warfarin 5 mg tablet 5 mg PO DAILY 05/27/24 04/28/25 Gammagard 90 g IV Q2W 04/28/25 Previous Rx's ?Medication ?Instructions ?Recorded azathioprine 50 mg tablet 150 mg (3 x 50 mg) PO DAILY 90 11/30/24 days #270 tabs Power lift chair #1 ea 01/22/25 ondansetron 8 mg disintegrating 8 mg PO Q12H PRN nausea and 01/22/25 tablet vomiting #14 tabs carboxymethylcellulose sodium 1 % 1 drp ophthalmic (eye) 6XD #15 mL 05/03/25 eye drops (Artificial Tears (carboxymethylcellulose)) prednisone 20 mg tablet 60 mg (3 x 20 mg) PO DAILY 7 days 05/03/25 #21 tabs valacyclovir 1 gram tablet 1,000 mg PO TID #21 tabs 05/03/25 tramadol 50 mg tablet 50 mg PO Q6H PRN pain #15 tabs 05/04/25 metoclopramide HCl 10 mg tablet 10 mg PO Q6H PRN nausea and 05/18/25 (Reglan) vomiting #14 tabs Allergies Allergy/AdvReac Type Severity Reaction Status Date / Time atorvastatin Allergy Mild Unknown Verified 05/18/25 10:33 Review of Systems Review of Systems: Yes all other systems are reviewed and are negative PMFSH Past Medical History Attestation statement: The following information was validated with the patient. Source: old records reviewed and nursing notes reviewed Medical History Peripheral vision loss Wheelchair dependent Vomiting and diarrhea GERD (gastroesophageal reflux disease) On anticoagulant therapy Elevated cholesterol HTN (hypertension) Sleep apnea Renal infarct Patent foramen ovale Morbid obesity Fatty liver Diabetes TIA (transient ischemic attack) 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 History of transient ischemic attack History of pulmonary embolism Foreign body (FB) in soft tissue Necrotizing myositis Statin-induced myositis Surgical History Hx of tracheostomy (~2022) History of esophagogastroduodenoscopy (EGD) H/O colonoscopy History of surgery on lower extremity Hx of neck surgery History of appendectomy History of cholecystectomy Family History Family History Mother Myositis Social History Social History Household Members: Family Housing: House Are you a primary rn progressive care to a significant other at home: No Do you presently have visiting nurse or other home services: No Alcohol intake: current Alcohol intake frequency: does not drink Patient Tobacco Use Status: Current everyday Tobacco user Tobacco use type: Cigarette Cigarettes Per Day: 4 Years Smoked: 30 Smoked in Last 30 Days: Yes Use of substances other than those prescribed or required for medical reasons: No Advance Directives: Yes Advance Directives Information Provided: No Advance Directives on File: No Physical Exam ED Vital Signs: Vital Signs - 24 hr 05/18/25 10:31 05/18/25 10:36 05/18/25 12:03 Temperature 98.0 F 98.5 F Pulse Rate 88 92 Respiratory Rate 20 20 18 Blood Pressure 165/84 H 164/97 H Pulse Oximetry 96 96 Oxygen Delivery Method Room Air Room Air 05/18/25 13:42 Temperature 98.5 F Pulse Rate 92 Respiratory Rate 18 Blood Pressure 164/97 H Pulse Oximetry 96 Oxygen Delivery Method Room Air BMI result Body Mass Index 60.2 Hypertensive, vitals are otherwise wnl General: Well appearing, in no acute distress. Skin: Warm, dry, intact. No rashes or lesions. Head: Normocephalic, atraumatic. EENT: Hearing is intact b/l. Conjunctiva clear. PERRLA. EOM intact. Moist mucous membranes.? Cardiac: Chest wall symmetric. RRR Lungs: Normal respiratory effort without accessory muscle use. CTA bilaterally. No rales, rhonchi, or wheezes.? Abdomen: obese, soft, non-tender, non-distended. No rebound tenderness or guarding. Positive BS x4. Back: No midline spinous or paraspinal tenderness. No step off deformity. Ext: Upper and lower extremities atraumatic, without tenderness, deformity, swelling or erythema Neuro: AOx3. Normal speech. Ambulating with steady gait Course Course Course Narrative: CBC without leukocytosis or left shift. No anemia, H and H stable. Chemistry without acute electrolyte abnormality requiring intervention. Random glucose 120, no anion gap. No MARLI. Liver function around baseline, lipase WNL. UA without infection. Patient tested positive for COVID. Negative flu, RSV. CT ap showing constipation, no other acute findings. His nausea has been improved with Reglan and Benadryl. He is tolerating p.o.. He has received a L of fluids and IV Tylenol. Discussed supportive treatment. Will send Reglan to pharmacy. Patient has remained stable throughout ED visit today. Discussed worrisome signs and symptoms and when to return to the ED. All questions answered at this time. Patient is agreeable with disposition and stable for discharge. Medications Administered Discontinued Medications Generic Name Dose Route Start Last Admin Trade Name Ed PRN Reason Stop Dose Admin Diphenhydramine HCl 25 mg 05/18/25 10:33 05/18/25 10:52 Diphenhydramine Hcl 50 Mg/Ml Vial IVPUSH 05/18/25 10:34 25 mg ONCE ONE Administration Sodium Chloride 1,000 mls @ 999 mls/hr 05/18/25 10:45 05/18/25 13:41 Ns IV 05/18/25 11:45 Infused .Q1H1M SHEEBA Infusion Acetaminophen 1,000 mg in 100 mls @ 400 mls/hr 05/18/25 10:38 05/18/25 12:26 Ofirmev IV 05/18/25 10:52 Infused ONCE ONE Infusion Metoclopramide HCl 10 mg 05/18/25 10:33 05/18/25 10:52 Metoclopramide Hcl 10 Mg/2 Ml Vial IVPUSH 05/18/25 10:34 10 mg ONCE ONE Administration Medical Decision Making Medical Decision Making [facility] Narrative: 54 year old male with 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 hypertensive, vitals are otherwise wnl. Differential diagnoses: diverticulosis, diverticulitis, gastroenteritis, gastritis, anemia, electrolyte abnormality, dehydration, viral syndrome Abdominal exam without peritoneal signs. No evidence of acute abdomen at this time. Well appearing. Low suspicion for acute hepatobiliary disease (including acute cholecystitis), acute infectious processes (pneumonia, hepatitis, pyelonephritis, PID), vascular catastrophe, bowel obstruction or viscus perforation, testicular torsion, orchitis, epidydymitis, appendicitis. Presentation not consistent with other acute, emergent causes of abdominal pain at this time. Plan: labs, UA, CT AP, pain control, fluids, serial reassessment Differential Diagnosis Differential Diagnoses: The differential diagnosis associated with the presentation includes as above. Admission/Observation Not indicated Lab Data [facility] Lab Attestation statement: I reviewed the patient's lab results. As above 05/18/25 10:46 05/18/25 10:46 Labs: Lab Results 05/18/25 05/18/25 Range/Units 10:46 12:06 WBC 6.3 (4.8-10.8) X10*3/uL RBC 5.10 (4.60-5.80) X10*6/uL Hgb 14.0 (14.0-18.0) g/dl Hct 42.8 (42.0-52.0) % MCV 83.9 (80.0-98.0) fL MCH 27.5 (27.0-33.0) pg MCHC 32.7 (31.0-36.0) g/dl RDW 14.8 (11.0-16.0) % Plt Count 164 (160-400) X10*3/uL MPV 9.4 (9.4-12.4) fL Immature Gran % (Auto) 0.6 H (0.0-0.4) % Neut % (Auto) 61.5 (45-73) % Lymph % (Auto) 27.8 (20-40) % [place] % (Auto) 9.0 (2-11) % Eos % (Auto) 0.9 (0-4) % Baso % (Auto) 0.2 (0-2) % Lymph # (Auto) 1.8 (1.2-4.9) X10*3/uL [place] # (Auto) 0.6 (0.1-1.2) X10*3/uL Eos # (Auto) 0.1 (0.0-0.4) X10*3/uL Baso # (Auto) 0.0 (0.0-0.2) X10*3/uL Abs Immat Gran (auto) 0.04 H (0.00-0.03) X10*3/uL Absolute Neuts (auto) 3.9 (2.0-8.3) x10*3/uL Absolute Nucleated RBC 0.000 (0.0-0.012) X10*3/uL Nucleated RBC % (auto) 0.0 (0.0-0.2) /100WBC Sodium 137 (135-145) mmol/L Potassium 4.2 (3.3-5.1) mmol/L Chloride 104 (96-108) mmol/L Carbon Dioxide 24 (22-29) mmol/L Anion Gap 13 (12-20) BUN 13 (9-16) mg/dL Creatinine 0.60 (0.5-1.4) mg/dL Estim Creat Clear Calc 255.9 Estimated GFR > 60 Random Glucose 120 H (60-115) mg/dL Calcium 8.5 D (8.4-10.2) mg/dL Magnesium 1.8 (1.6-2.6) mg/dL Total Bilirubin 0.4 (0.0-1.0) mg/dL AST 40 H (5-37) U/L ALT 32 (0-40) U/L Alkaline Phosphatase 71 (39-117) U/L Total Protein 7.5 (6.5-8.0) g/dL Albumin 3.7 (3.5-5.0) g/dL Lipase 17 (8-78) U/L Urine Color Dark Yellow Urine Appearance Clear Urine pH 5.5 (5.0-9.0) Ur Specific [place] 1.025 (1.005-1.025) Urine Protein Negative (Neg-Trace) mg/dL Urine Glucose (UA) Negative (Negative) mg/dL Urine Ketones Negative (Negative) mg/dL Urine Blood Negative (Negative) Urine Nitrite Negative (Negative) Ur Leukocyte Esterase Negative (Negative) Influenza Type A (PCR) NEGATIVE (Negative) Influenza Type B (PCR) NEGATIVE (Negative) RSV RNA Qual (PCR) NEGATIVE (Negative) SARS-CoV-2 RNA (RT-PCR) POSITIVE A (Negative) Independent Interpretation I performed an independent interpretation of an: CT Scan Interpretation: ct a/p without bowel obstruction Radiology Impression Discussion of test interpretation with radiology: I have reviewed the radiologist's reading. Radiologist Impression: Procedure(s): CT abdomen pelvis wo IV con Accession Number(s): [id number] cc: Lanette Latif PA-C; Tammy Sandoval Report Number: [id number]: Total DLP = 1571.00 mGy-cm Reason for Exam: N/V/D LLQ pain EXAMINATION: CT ABDOMEN PELVIS WITHOUT IV CONTRAST HISTORY: N/V/D LLQ pain COMPARISON: There are no prior studies available for comparison. TECHNIQUE: CT scan of the abdomen and pelvis was performed without contrast using standard departmental protocol. Coronal and sagittal reformatted images were generated and reviewed. Oral contrast material was not administered at the request of the referring physician. This CT exam was performed with one or more of the following dose reduction techniques: automated exposure control, adjustment of the mA and/or kV according to patient size, use of iterative reconstruction technique. DLP: 1571 mGy-cm FINDINGS: LOWER CHEST: The visualized lung bases are clear. There is no pleural effusion. CARDIOVASCULATURE: The heart is normal in size. There is no pericardial effusion. LIVER: The liver is normal in size and contour. The liver has an unremarkable unenhanced appearance. GALLBLADDER / BILE DUCTS: The gallbladder is surgically absent. There is no intra or extrahepatic biliary ductal dilatation. SPLEEN: The spleen is enlarged, but has an unremarkable unenhanced appearance. PANCREAS: There is fatty atrophy of the pancreas. ADRENAL GLANDS: Unremarkable. KIDNEYS/RETROPERITONEUM: No renal or ureteral calculi are identified. There is no hydronephrosis or hydroureter. LYMPH NODES: No retroperitoneal lymphadenopathy is identified in the abdomen or pelvis. VASCULATURE: The abdominal aorta demonstrates atherosclerotic calcification, but is normal in caliber. MESENTERY/PERITONEUM: No free fluid. No masses. There is no free intraperitoneal gas. STOMACH: The stomach is collapsed, limiting evaluation. SMALL BOWEL: The small bowel is normal in caliber. COLON: There is a moderate amount of formed stool throughout the colon. APPENDIX: The appendix is surgically absent. URINARY BLADDER/PELVIC ORGANS: The urinary bladder is unremarkable. The prostate is normal in size. BONES / SOFT TISSUES: No suspicious bony or soft tissue abnormalities. CT/CT abdomen pelvis wo IV con IMPRESSION: 1. Moderate amount of stool throughout the colon. 2. Splenomegaly. Electronically signed by: Soto Green MD 05/18/2025 11:34 AM [facility] Independent Historian Clinical information obtained from an independent historian. History obtained from or confirmed by: EMS External Record Review External record reviewed: Inpatient record Prescription Management I considered prescription management with: Pain Medication and Other (reglan) Social Determinants Patient?s care significantly limited by Social Determinants of Health including: Other Social Determinant of Health Critical Care Time Critical Care Time Critical Care Time: No Discharge Plan Discharge Clinical Impression: COVID-19 Patient Disposition: Home, Self-Care Instructions: COVID-19 (Coronavirus Disease 2019) (ED) Additional Instructions: Your blood work is reassuring. The CT scan of your abdomen shows mild constipation, otherwise reassuring. Today you tested positive for COVID-19.? Take Ibuprofen or Tylenol as needed for fevers or body aches.? Quarantine for 5 days and ensure you wear a mask. After 5 days you should wear a mask for 5 days after that.? Practice social distancing and good hand hygiene. Drink plenty of fluids. I am sending reglan to the pharmacy for you to take as needed for nausea. Follow-up with your primary care provider this week. Return to the emergency department with new or worsening symptoms. In case of emergency call 911 You can purchase a pulse oximeter from your local pharmacy or grocery store, and monitor your oxygen saturation if it goes below 94% you should return to the emergency department for further evaluation. Prescriptions: New metoclopramide HCl [Reglan] 10 mg tablet 10 mg PO Q6H PRN (Reason: nausea and vomiting) Qty: 14 0RF No Action azathioprine 50 mg tablet 150 mg PO DAILY 90 Days Qty: 270 1RF Gammagard 90 g IV Q2W tramadol 50 mg tablet 50 mg PO Q6H PRN (Reason: pain) Qty: 15 0RF prednisone 20 mg tablet 60 mg PO DAILY 7 Days Qty: 21 0RF valacyclovir 1 gram tablet 1,000 mg PO TID Qty: 21 0RF Artificial Tears (cmc) 1 % drops 1 drp ophthalmic (eye) 6XD Qty: 15 0RF gabapentin 300 mg capsule 300 mg PO TID losartan 25 mg tablet 25 mg PO DAILY metoprolol tartrate 25 mg tablet 25 mg PO BID omeprazole 40 mg capsule,delayed release(DR/EC) 40 mg PO DAILY warfarin 2.5 mg tablet 2.5 mg PO DAILY warfarin 5 mg tablet 5 mg PO DAILY duloxetine 60 mg capsule,delayed release(DR/EC) 60 mg PO DAILY oxycodone-acetaminophen 10-325 mg tablet 1 tab PO QID PRN (Reason: Pain) ondansetron 8 mg tablet,disintegrating 8 mg PO Q12H PRN (Reason: nausea and vomiting) Qty: 14 0RF (DME) Power lift chair Bariatric See Rx Instructions .Route .MEDSUPPLY Qty: 1 0RF Rx Instructions: As directed Referrals: Bhavya,Lanette Marcela, PA-C [Primary Care Provider, Internal Medicine] Interventions: ED Discharge Assessment Last Done: 05/18/25 13:42 Print Language: Swedish
[2025-05-18 10:31] VITALS: BP 160/92; BP 165/84; PULSE 88; PULSE 97; RESP 20; TEMP 36.7; O2SAT 96; O2SAT 97; BMI 60.2
[2025-05-18 10:36] VITALS: RESP 20
[2025-05-18 10:51] LABS: MANUAL DIFF FLAG NO
[2025-05-18 10:56] LABS: Hematocrit 42.8 % (42.0-52.0); Hemoglobin 14.0 g/dl (14.0-18.0); Imm Gran Abs Auto 0.04 X10*3/uL (0.00-0.03); Imm Gran Pct Auto 0.6 % (0.0-0.4); Lymphocytes Absolute Auto 1.8 X10*3/uL (1.2-4.9); Mean Corpuscular HGB Conc 32.7 g/dl (31.0-36.0); Mean Corpuscular Hemoglobin 27.5 pg (27.0-33.0); Mean Corpuscular Volume 83.9 fL (80.0-98.0); NRBC Abs Auto 0.000 X10*3/uL (0.0-0.012); NRBC Pct Auto 0.0 /100WBC (0.0-0.2); Platelet Count 164 X10*3/uL (160-400); Red Blood Count 5.10 X10*6/uL (4.60-5.80); White Blood Count 6.3 X10*3/uL (4.8-10.8)
[2025-05-18 11:09] LABS: Alanine Aminotransferase 32 U/L (0-40); Albumin Level 3.7 g/dL (3.5-5.0); Alkaline Phosphatase 71 U/L (39-117); Anion Gap 13 (12-20); Aspartate Amino Transferase 40 U/L (5-37); Blood Urea Nitrogen 13 mg/dL (9-16); Calcium 8.5 mg/dL (8.4-10.2); Carbon Dioxide 24 mmol/L (22-29); Chloride 104 mmol/L (96-108); Creatinine Clr Calc Pharmacy 255.9; Estimated Glomerular Filt Rate > 60; Lipase 17 U/L (8-78); Magnesium 1.8 mg/dL (1.6-2.6); Potassium 4.2 mmol/L (3.3-5.1); Sodium 137 mmol/L (135-145); Total Protein 7.5 g/dL (6.5-8.0)
[2025-05-18 11:30] LABS: Resp Syncy Virus RNA Qual PCR NEGATIVE (Negative); SARS COV2 PCR INHOUSE POSITIVE (Negative)
[2025-05-18 12:03] VITALS: BP 164/97; PULSE 92; RESP 18; TEMP 36.9; O2SAT 96
[2025-05-18 12:14] LABS: Appearance Urine Clear; Glucose Urine UA Negative (Negative); PH 5.5 (5.0-9.0); Specific Gravity - Urine 1.025 (1.005-1.025)
[2025-05-18 13:42] VITALS: BP 164/97; PULSE 92; RESP 18; TEMP 36.9; O2SAT 96
--- OUTSIDE RECORDS SUMMARY | 2025-05-18 14:30 | XMS_ITS | Clinical Summary ---
Author Organization [address] [facility] Address [address] [place] [address] Phone Care Team Providers Care Pan Operator Name Role Phone Lily Her MD Primary Care Provider [phone] Active Problems Problem Noted Date Diagnosed Date Chronic right shoulder pain 03/26/2024 Chronic left shoulder pain 03/26/2024 Surgical History Surgery Date Site/Laterality Comments CHOLECYSTECTOMY 2009 PROCEDURE: NM LAPAROSCOPY SURG CHOLECYSTECTOMY APPENDECTOMY 1999 PROCEDURE: NM APPENDECTOMY SHOULDER SURGERY Right PROCEDURE: HISTORICAL SHOULDER [...] DX:Pulmonary embolism, bilat eral (HCC) Renal infarct ([facility] V24) DX:R enal infarct (HCC) Stroke ([facility] V24, [facility] V28) DX:Stroke (HCC) Diabetes mellitus ([facility] V 24, [facility] V28) DX:Diabetes mellitus (HCC) GERD (gastroesophageal reflux [...] Insurance MEDICA[place] - [place] MEDICARE Care Teams Pan Operator Relationship Specialty Start Date End Date Lily Her MD [address] [place] [address] [place] [phone] PCP - General Family Medicine 01/26/22
--- OUTSIDE RECORDS SUMMARY | 2025-05-18 14:30 | XMS_ITS | Encounter Summary ---
Author Organization [facility] Address [address] [place] [phone] Phone Care Team Providers Care Women'S Swim Coach Name Role Phone Lily Her MD Primary Care Provider Larry Platt MD Unavailable [phone] Encounter Details Date Type Department Care Team (Late st Contact Info) Description 12/31/2022 Transcribe Orders [facility] Specimen Processing [address] [place] [address] Mary Cheng [address] [place] [address] Social History Tobacco Use Types Packs/Day Years [...] documented as of this encounter Care Teams Women'S Swim Coach Relationship Specialty Start Date End Date Lily Her MD [address] [place] [address] PCP - General Family Medicine 09/05/22 Larry Platt MD [address] [place] [phone] [email or web address] Insurance Assigned Provider 12/23/22 02/23/23 documented as of this encounter Additional Source Comments The information contained in this document represents components of the legal health record. It is not the complete legal health record.[facility]
--- OUTSIDE RECORDS SUMMARY | 2025-05-18 14:30 | XMS_ITS | Encounter Summary ---
Author Organization [facility] Address [address] [place] [address] Phone Care Team Providers Care Firefighter Marine Name Role Phone Lily Her MD Primary Care Provider Larry Platt MD Unavailable [phone] Encounter Details Date Type Department Care Team (Late st Contact Info) Description 12/21/2022 Transcribe Orders [facility] Specimen Processing [address] [place] [address] Brigida Garcia NP [address] [place] [address] Social History Tobacco Use Types Packs/Day Years [...] documented as of this encounter Care Teams Firefighter Marine Relationship Specialty Start Date End Date Lily Her MD [address] [place] [address] PCP - General Family Medicine 09/05/22 Larry Platt MD [address] [place] [address] [email or web address] Insurance Assigned Provider 12/23/22 02/23/23 documented as of this encounter Additional Source Comments The information contained in this document represents components of the legal health record. It is not the complete legal health record.[facility]
--- OUTSIDE RECORDS SUMMARY | 2025-05-18 14:30 | XMS_ITS | Encounter Summary ---
Author Organization [facility] Address [address] [facility] [address] [place] [address] Phone Care Team Providers Care Jig Hand Name Role Phone Lily Her MD Primary Care Provider Larry Platt MD Unavailable [phone] Encounter Details Date Type Department Care Team (Late st Contact Info) Description 12/08/2022 Transcribe Orders [facility] Specimen Processing [address] [place] [address] Kalin Arango [address] [place] [address] Social History Tobacco Use Types Packs/Day Years [...] documented as of this encounter Care Teams Jig Hand Relationship Specialty Start Date End Date Lily Her MD [address] [place] [address] PCP - General Family Medicine 09/05/22 Larry Platt MD [address] [place] [address] [email or web address] Insurance Assigned Provider 12/23/22 02/23/23 documented as of this encounter Additional Source Comments The information contained in this document represents components of the legal health record. It is not the complete legal health record.[facility]
--- OUTSIDE RECORDS SUMMARY | 2025-05-18 14:30 | XMS_ITS | Encounter Summary ---
Author Organization [facility] Address [address] [place] [address] Phone Care Team Providers Care Electronics Utility Worker Name Role Phone Lily Her MD Primary Care Provider Larry Platt MD Unavailable [phone] Encounter Details Date Type Department Care Team (Late st Contact Info) Description 02/04/2023 Transcribe Orders [facility] Specimen Processing [address] [place] [address] Viviana Mock Social History Tobacco Use Types [...] documented as of this encounter Care Teams Electronics Utility Worker Relationship Specialty Start Date End Date Lily Her MD 24 [place] [address] PCP - General Family Medicine 09/05/22 Larry Platt MD [address] [place] [address] [email or web address] Insurance Assigned Provider 12/23/22 02/23/23 documented as of this encounter Additional Source Comments The information contained in this document represents components of the legal health record. It is not the complete legal health record.[facility]
--- OUTSIDE RECORDS SUMMARY | 2025-05-18 14:30 | XMS_ITS | Encounter Summary ---
Author Organization [facility] Address [address] [place] [address] Phone Care Team Providers Care Windows Migration Technician Name Role Phone Lily Her MD Primary Care Provider Larry Platt MD Unavailable Encounter Details Date Type Department Care Team (Late st Contact Info) Description 11/09/2022 Transcribe Orders [facility] Specimen Processing [address] [place] [address] Brigida Garcia, ROBERT [address] [place] [address] Social History Tobacco Use Types Packs/Day Years [...] documented as of this encounter Care Teams Windows Migration Technician Relationship Specialty Start Date End Date Lily Her MD 24 [place] [address] PCP - General Family Medicine 09/05/22 Larry Platt MD [address] [place] [address] [email or web address] Insurance Assigned Provider 12/23/22 02/23/23 documented as of this encounter Additional Source Comments The information contained in this document represents components of the legal health record. It is not the complete legal health record.[facility]
--- OUTSIDE RECORDS SUMMARY | 2025-05-18 14:30 | XMS_ITS | Encounter Summary ---
Author Organization [facility] Address [address] [place] [address] Phone Care Team Providers Care Machine Folder Name Role Phone Lily Her MD Primary Care Provider Larry Platt MD Unavailable [phone] Encounter Details Date Type Department Care Team (Late st Contact Info) Description 12/18/2022 Transcribe Orders [facility] Specimen Processing [address] [place] [address] Brigida Garcia NP [address] [place] [address] Social History Tobacco Use Types Packs/Day Years [...] documented as of this encounter Care Teams Machine Folder Relationship Specialty Start Date End Date Lily Her MD 24 [place] [address] PCP - General Family Medicine 09/05/22 Larry Platt MD [address] [place] [address] [email or web address] Insurance Assigned Provider 12/23/22 02/23/23 documented as of this encounter Additional Source Comments The information contained in this document represents components of the legal health record. It is not the complete legal health record.[facility]
--- OUTSIDE RECORDS SUMMARY | 2025-05-18 14:30 | XMS_ITS | Encounter Summary ---
Author Organization [facility] Address [address] [place] [address] Phone Care Team Providers Care Vehicle Glass Technician Name Role Phone Lily Her MD Primary Care Provider Larry Platt MD Unavailable [phone] Encounter Details Date Type Department Care Team (Late st Contact Info) Description 01/23/2023 Transcribe Orders [facility] Specimen Processing [address] [place] [address] Viviana Mock Social History Tobacco Use Types [...] documented as of this encounter Care Teams Vehicle Glass Technician Relationship Specialty Start Date End Date Lily Her MD [address] [place] [address] PCP - General Family Medicine 09/05/22 Larry Platt MD [address] [place] [address] [email or web address] Insurance Assigned Provider 12/23/22 02/23/23 documented as of this encounter Additional Source Comments The information contained in this document represents components of the legal health record. It is not the complete legal health record.[facility]
--- OUTSIDE RECORDS SUMMARY | 2025-05-18 14:30 | XMS_ITS | Clinical Summary ---
Author Organization [facility] Prior to 10/17/24 Address [address] [place] [address] Care Team Providers Care Nailhead Puncher Name Role Phone Lily Her MD Primary Care Provider [phone] Allergies No known active allergies Medications Medication [...] age to complete this topic Care Teams Nailhead Puncher Relationship Specialty Start Date End Date Lily Her MD [address] [place] [address] PCP - General Family Medicine 01/26/22
--- OUTSIDE RECORDS SUMMARY | 2025-05-18 14:30 | XMS_ITS | Encounter Summary ---
Author Organization [facility] Address [address] [facility] [address] [place] [address] Phone Care Team Providers Care Furniture Repairer Name Role Phone Lily Her MD Primary Care Provider Larry Platt MD Unavailable [phone] Encounter Details Date Type Department Care Team (Late st Contact Info) Description 01/19/2023 Transcribe Orders [facility] Specimen Processing [address] [place] [address] Tatiana [email or web address] Social History Tobacco Use [...] documented as of this encounter Care Teams Furniture Repairer Relationship Specialty Start Date End Date Lily Her MD [address] [place] [address] PCP - General Family Medicine 09/05/22 Larry Platt MD [address] [place] [address] [email or web address] Insurance Assigned Provider 12/23/22 02/23/23 documented as of this encounter Additional Source Comments The information contained in this document represents components of the legal health record. It is not the complete legal health record.[facility]
--- OUTSIDE RECORDS SUMMARY | 2025-05-18 14:30 | XMS_ITS | Encounter Summary ---
Author Organization [facility] Address [address] [facility] [place] [address] [place] [address] Phone Care Team Providers Care Beveling And Edging Machine Operator Name Role Phone Lily Her MD Primary Care Provider Larry Platt MD Unavailable [phone] Encounter Details Date Type Department Care Team (Late st Contact Info) Description 12/24/[address] [facility] Specimen Processing [address] [place] [address] [place] Social History Tobacco Use Types Packs/Day [...] documented as of this encounter Care Teams Beveling And Edging Machine Operator Relationship Specialty Start Date End Date Lily Her MD [address] [place] [address] PCP - General Family Medicine 09/05/22 Larry Platt MD [address] [place] [address] [email or web address] Insurance Assigned Provider 12/23/22 02/23/23 documented as of this encounter Additional Source Comments The information contained in this document represents components of the legal health record. It is not the complete legal health record.[facility]
--- OUTSIDE RECORDS SUMMARY | 2025-05-18 14:30 | XMS_ITS | Encounter Summary ---
Author Organization [facility] Address [address] [place] [address] Phone Care Team Providers Care Hot Walker Name Role Phone Lily Her MD Primary Care Provider Larry Platt MD Unavailable [phone] Encounter Details Date Type Department Care Team (Late st Contact Info) Description 12/04/2022 Transcribe Orders [facility] Specimen Processing [address] [place] [address] Mary Cheng 81 [place] [address] Social History Tobacco Use Types Packs/Day Years [...] documented as of this encounter Care Teams Hot Walker Relationship Specialty Start Date End Date Lily Her MD 24 [place] [address] PCP - General Family Medicine 09/05/22 Larry Platt MD [address] [place] [address] [email or web address] Insurance Assigned Provider 12/23/22 02/23/23 documented as of this encounter Additional Source Comments The information contained in this document represents components of the legal health record. It is not the complete legal health record.[facility]
--- OUTSIDE RECORDS SUMMARY | 2025-05-18 14:30 | XMS_ITS | Encounter Summary ---
Author Organization [facility] Address [address] [facility] [address] [place] [address] Phone Care Team Providers Care Therapy Coordinator Name Role Phone Lily Her MD Primary Care Provider Encounter Details Date Type Department Care Team (Late st Contact Info) Description 05/21/2023 Transcribe Orders [facility] Specimen Processing [address] [place] [address] [place] Social History Tobacco Use Types Packs/Day [...] documented as of this encounter Care Teams Therapy Coordinator Relationship Specialty Start Date End Date Lily Her MD [address] [place] [address] PCP - General Family Medicine 09/05/22 documented as of this encounter Additional Source Comments The information contained in this document represents components of the legal health record. It is not the complete legal health record.[facility]
--- OUTSIDE RECORDS SUMMARY | 2025-05-18 14:30 | XMS_ITS | Encounter Summary ---
Author Organization [facility] Address [address] [facility] [address] [place] [address] Phone Care Team Providers Care Catering Convention Services Manager Name Role Phone Lily Her MD Primary Care Provider Encounter Details Date Type Department Care Team (Late st Contact Info) Description 07/26/2023 Transcribe Orders [facility] Specimen Processing [address] [place] [address] Viviana Mock Social History Tobacco Use Types [...] documented as of this encounter Care Teams Catering Convention Services Manager Relationship Specialty Start Date End Date Lily Her MD [address] [place] [address] PCP - General Family Medicine 09/05/22 documented as of this encounter Additional Source Comments The information contained in this document represents components of the legal health record. It is not the complete legal health record.[facility]
--- OUTSIDE RECORDS SUMMARY | 2025-05-18 14:30 | XMS_ITS | Encounter Summary ---
Author Organization [facility] Address [address] [place] [address] Phone Care Team Providers Care Paint Process Engineer Name Role Phone Lily Her MD Primary Care Provider Larry Platt MD Unavailable [phone] Encounter Details Date Type Department Care Team (Late st Contact Info) Description 01/28/[address] [facility] Specimen Processing [address] [place] [address] Brigida Garcia NP [address] [place] [address] Social History Tobacco Use Types Packs/Day Years [...] documented as of this encounter Care Teams Paint Process Engineer Relationship Specialty Start Date End Date Lily Her MD [address] [place] [address] PCP - General Family Medicine 09/05/22 Larry Platt MD [address] [place] [address] [email or web address] Insurance Assigned Provider 12/23/22 02/23/23 documented as of this encounter Additional Source Comments The information contained in this document represents components of the legal health record. It is not the complete legal health record.[facility]
--- OUTSIDE RECORDS SUMMARY | 2025-05-18 14:30 | XMS_ITS | Encounter Summary ---
Author Organization [facility] Address [address] [place] [address] Phone Care Team Providers Care Tube Knitter Name Role Phone Lily Her MD Primary Care Provider Larry Platt MD Unavailable [phone] Encounter Details Date Type Department Care Team (Late st Contact Info) Description 11/30/[address] [facility] Specimen Processing [address] [place] [address] Viviana Mock Social History Tobacco Use Types [...] documented as of this encounter Care Teams Tube Knitter Relationship Specialty Start Date End Date Lily Her MD [address] [place] [address] PCP - General Family Medicine 09/05/22 Larry Platt MD [address] [place] [address] [email or web address] Insurance Assigned Provider 12/23/22 02/23/23 documented as of this encounter Additional Source Comments The information contained in this document represents components of the legal health record. It is not the complete legal health record.[facility]
--- OUTSIDE RECORDS SUMMARY | 2025-05-18 14:30 | XMS_ITS | Encounter Summary ---
Author Organization [facility] Address [address] [facility] [address] [place] [address] Phone Care Team Providers Care Storyboard Artist Name Role Phone Lily Her MD Primary Care Provider Larry Platt MD Unavailable [phone] Encounter Details Date Type Department Care Team (Late st Contact Info) Description 12/05/2022 Transcribe Orders [facility] Specimen Processing [address] [place] [address] Kalin Arango [address] [place] [address] Social History Tobacco Use Types Packs/Day Years [...] documented as of this encounter Care Teams Storyboard Artist Relationship Specialty Start Date End Date Lily Her MD [address] [place] [address] PCP - General Family Medicine 09/05/22 Larry Platt MD [address] [place] [address] [email or web address] Insurance Assigned Provider 12/23/22 02/23/23 documented as of this encounter Additional Source Comments The information contained in this document represents components of the legal health record. It is not the complete legal health record.[facility]
--- OUTSIDE RECORDS SUMMARY | 2025-05-18 14:30 | XMS_ITS | Encounter Summary ---
Author Organization [facility] Address [address] [place] [address] Phone Care Team Providers Care Wet Plant Operator Name Role Phone Lily Her MD Primary Care Provider Larry Platt MD Unavailable [phone] Encounter Details Date Type Department Care Team (Late st Contact Info) Description 01/07/2023 Transcribe Orders [facility] Specimen Processing [address] [place] [address] Viviana Mock Social History Tobacco Use Types [...] documented as of this encounter Care Teams Wet Plant Operator Relationship Specialty Start Date End Date Lily Her MD [address] [place] [address] PCP - General Family Medicine 09/05/22 Larry Platt MD [address] [place] [address] [email or web address] Insurance Assigned Provider 12/23/22 02/23/23 documented as of this encounter Additional Source Comments The information contained in this document represents components of the legal health record. It is not the complete legal health record.[facility]
--- OUTSIDE RECORDS SUMMARY | 2025-05-18 14:30 | XMS_ITS | Encounter Summary ---
Author Organization [facility] Address [address] [place] [address] Phone Care Team Providers Care Tinner Automatic Name Role Phone Lily Her MD Primary Care Provider Encounter Details Date Type Department Care Team ([facility] st Contact Info) Description 08/26/2023 Transcribe Orders [facility] Specimen Processing 81 [place] [address] Brigida Garcia NP [address] [place] [address] Social History Tobacco Use Types Packs/Day Years [...] documented as of this encounter Care Teams Tinner Automatic Relationship Specialty Start Date End Date Lily Her MD [address] [place] [address] PCP - General Family Medicine 09/05/22 documented as of this encounter Additional Source Comments The information contained in this document represents components of the legal health record. It is not the complete legal health record.[facility]
--- OUTSIDE RECORDS SUMMARY | 2025-05-18 14:30 | XMS_ITS | Clinical Summary ---
Author Organization [facility] Address [address] [facility] [address] [place] [address] Phone Care Team Providers Care Laboratory Development Technician Name Role Phone Lily Her MD Primary Care Provider [phone] Allergies Active Allergy Reactions Criticality Noted Date [...] 12/22/2020 Influenza Vaccine (#1) 2025 [place] Care Teams Laboratory Development Technician Relationship Specialty Start Date End Date Lily Her MD [address] [place] [address] PCP - General Family Medicine 05/22/21
--- OUTSIDE RECORDS SUMMARY | 2025-05-18 14:30 | XMS_ITS | Encounter Summary ---
Author Organization [facility] Address [address] [facility] [address] [place] [address] Phone Care Team Providers Care Beauty Artist Name Role Phone Lily Her MD Primary Care Provider Larry Platt MD Unavailable [phone] Encounter Details Date Type Department Care Team (Late st Contact Info) Description 12/10/2022 Transcribe Orders [facility] Specimen Processing [address] [place] [address] Tatiana [email or web address] Social History Tobacco Use [...] documented as of this encounter Care Teams Beauty Artist Relationship Specialty Start Date End Date Lily Her MD [address] [place] [address] PCP - General Family Medicine 09/05/22 Larry Platt MD [address] [place] [address] [email or web address] Insurance Assigned Provider 12/23/22 02/23/23 documented as of this encounter Additional Source Comments The information contained in this document represents components of the legal health record. It is not the complete legal health record.[facility]
--- OUTSIDE RECORDS SUMMARY | 2025-05-18 14:30 | XMS_ITS | Encounter Summary ---
Author Organization [facility] Address [address] [facility] [address] [place] [address] Phone Care Team Providers Care Drum Saw Operator Name Role Phone Lily Her MD Primary Care Provider Larry Platt MD Unavailable Encounter Details Date Type Department Care Team (Late st Contact Info) Description 12/07/[address] [facility] Specimen Processing [address] [place] [address] Kalin Arango [address] [place] [address] Social History Tobacco Use Types Packs/Day Years [...] documented as of this encounter Care Teams Drum Saw Operator Relationship Specialty Start Date End Date Lily Her MD [address] [place] [address] PCP - General Family Medicine 09/05/22 Larry Platt MD [address] [place] [address] [email or web address] Insurance Assigned Provider 12/23/22 02/23/23 documented as of this encounter Additional Source Comments The information contained in this document represents components of the legal health record. It is not the complete legal health record.[facility]
--- OUTSIDE RECORDS SUMMARY | 2025-05-18 14:31 | XMS_ITS | Clinical Summary ---
Author Organization [facility] Address [address] [place] [address] Care Team Providers Care Artist Blacksmith Name Role Phone Unavailable Primary Care Provider [...]
--- OUTSIDE RECORDS SUMMARY | 2025-05-18 14:31 | XMS_ITS | Encounter Summary ---
Author Organization [facility] Address [address] [facility] [address] [place] [address] Phone Care Team Providers Care Community Action Worker Name Role Phone Lily Her MD Primary Care Provider Encounter Details Date Type Department Care Team ([facility] st Contact Info) Description 02/26/2023 Transcribe Orders [facility] Specimen Processing [address] [place] [address] Viviana Mock Social History Tobacco Use Types [...] documented as of this encounter Care Teams Community Action Worker Relationship Specialty Start Date End Date Lily Her MD [address] [place] [address] PCP - General Family Medicine 09/05/22 documented as of this encounter Additional Source Comments The information contained in this document represents components of the legal health record. It is not the complete legal health record.[facility]
--- OUTSIDE RECORDS SUMMARY | 2025-05-18 14:31 | XMS_ITS | Encounter Summary ---
Author Organization [facility] Address [address] [facility] [address] [place] [address] Phone Care Team Providers Care Restaurant Hourly Team Member Name Role Phone Lily Her MD Primary Care Provider Larry Platt MD Unavailable [phone] Encounter Details Date Type Department Care Team (Late st Contact Info) Description 09/07/2022 Procedure Pass [facility] [address] [place] [address] Social History Tobacco Use Types Packs/Day Years [...] documented as of this encounter Care Teams Restaurant Hourly Team Member Relationship Specialty Start Date End Date Lily Her MD [address] [place] [address] PCP - General Family Medicine 09/05/22 Larry Platt MD [address] [place] [address] Insurance Assigned Provider 12/23/22 02/23/23 documented as of this encounter Additional Source Comments The information contained in this document represents components of the legal health record. It is not the complete legal health record.[facility]
--- OUTSIDE RECORDS SUMMARY | 2025-05-18 14:31 | XMS_ITS | Encounter Summary ---
Author Organization [facility] Address [address] [place] [address] Phone Care Team Providers Care Animal Care Worker Name Role Phone Lily Her MD Primary Care Provider Larry Platt MD Unavailable [phone] Encounter Details Date Type Department Care Team (Late st Contact Info) Description 11/16/2022 Transcribe Orders [facility] Specimen Processing [address] [place] [address] Viviana Mock Social History Tobacco Use Types [...] documented as of this encounter Care Teams Animal Care Worker Relationship Specialty Start Date End Date Lily Her MD [address] [place] [address] PCP - General Family Medicine 09/05/22 Larry Platt MD [address] [place] [address] [email or web address] Insurance Assigned Provider 12/23/22 02/23/23 documented as of this encounter Additional Source Comments The information contained in this document represents components of the legal health record. It is not the complete legal health record.[facility]
--- OUTSIDE RECORDS SUMMARY | 2025-05-18 14:31 | XMS_ITS | Encounter Summary ---
Author Organization [facility] Address [address] [facility] [address] [place] [address] Phone Care Team Providers Care Civil Division Commander Deputy Sheriff Name Role Phone Lily Her MD Primary Care Provider Larry Platt MD Unavailable Encounter Details Date Type Department Care Team (Late st Contact Info) Description 11/28/[address] [facility] Specimen Processing [address] [place] [address] Kalin Arango [address] [place] [address] Social History Tobacco Use Types Packs/Day Years [...] documented as of this encounter Care Teams Civil Division Commander Deputy Sheriff Relationship Specialty Start Date End Date Lily Her MD [address] [place] [address] PCP - General Family Medicine 09/05/22 Larry Platt MD [address] [place] [address] [email or web address] Insurance Assigned Provider 12/23/22 02/23/23 documented as of this encounter Additional Source Comments The information contained in this document represents components of the legal health record. It is not the complete legal health record.[facility]
--- OUTSIDE RECORDS SUMMARY | 2025-05-18 14:31 | XMS_ITS | Encounter Summary ---
Author Organization [facility] Address [address] [facility] [address] [place] [address] Phone Care Team Providers Care Soil Tester Name Role Phone Lily Her MD Primary Care Provider Larry Platt MD Unavailable [phone] Encounter Details Date Type Department Care Team (Late st Contact Info) Description 09/24/2022 Procedure Pass [facility] [place] [address] [facility], 6th [place] [address] Social History Tobacco Use Types Packs/Day Years [...] documented as of this encounter Care Teams Soil Tester Relationship Specialty Start Date End Date Lily Her MD [address] [place] [address] PCP - General Family Medicine 09/05/22 Larry Platt MD [address] [place] [address] [email or web address] Insurance Assigned Provider 12/23/22 02/23/23 documented as of this encounter Additional Source Comments The information contained in this document represents components of the legal health record. It is not the complete legal health record.[facility]
--- OUTSIDE RECORDS SUMMARY | 2025-05-18 14:31 | XMS_ITS | Encounter Summary ---
Author Organization [facility] Address [address] [place] [address] Phone Care Team Providers Care Medical Billing Representative Name Role Phone Lily Her MD Primary Care Provider Encounter Details Date Type Department Care Team (Late st Contact Info) Description 04/08/2023 Transcribe Orders [facility] Specimen Processing [address] [place] [address] Maria De Jesus Clark MD [address] [place] [address] [email or web address] Social History Tobacco Use Types Packs/Day [...] documented as of this encounter Care Teams Medical Billing Representative Relationship Specialty Start Date End Date Lily Her MD [address] [place] [address] PCP - General Family Medicine 09/05/22 documented as of this encounter Additional Source Comments The information contained in this document represents components of the legal health record. It is not the complete legal health record.[facility]
--- OUTSIDE RECORDS SUMMARY | 2025-05-18 14:31 | XMS_ITS | Encounter Summary ---
Author Organization [facility] Address [address] [place] [address] Phone Care Team Providers Care Community Engagement Representative Name Role Phone Lily Her MD Primary Care Provider Larry Platt MD Unavailable [phone] Encounter Details Date Type Department Care Team (Late st Contact Info) Description 11/13/2022 Transcribe Orders [facility] Specimen Processing [address] [place] [address] Viviana Mock Social History Tobacco Use Types [...] as of this encounter Care Teams Community Engagement Representative Relationship Specialty Start Date End Date Lily Her MD [address] [place] [address] PCP - General Family Medicine 09/05/22 Larry Platt MD [address] [place] [address] [email or web address] Insurance Assigned Provider 12/23/22 02/23/23 documented as of this encounter Additional Source Comments The information contained in this document represents components of the legal health record. It is not the complete legal health record.[facility]
--- OUTSIDE RECORDS SUMMARY | 2025-05-18 14:31 | XMS_ITS | Encounter Summary ---
Author Organization [facility] Address [address] [facility] [address] [place] [address] Phone Care Team Providers Care Enterprise Architect Manager Name Role Phone Lily Her MD Primary Care Provider Larry Platt MD Unavailable [phone] Encounter Details Date Type Department Care Team (Late st Contact Info) Description 09/24/2022 Procedure Pass [facility], [place] [address] [facility], 6th [place] [address] Social History Tobacco Use Types Packs/Day Years [...] documented as of this encounter Care Teams Enterprise Architect Manager Relationship Specialty Start Date End Date Lily Her MD [address] [place] [address] PCP - General Family Medicine 09/05/22 Larry Platt MD [address] [place] [address] [email or web address] Insurance Assigned Provider 12/23/22 02/23/23 documented as of this encounter Additional Source Comments The information contained in this document represents components of the legal health record. It is not the complete legal health record.[facility]
--- OUTSIDE RECORDS SUMMARY | 2025-05-18 14:31 | XMS_ITS | Encounter Summary ---
Author Organization [facility] Address [address] [facility] [address] [place] [address] Phone Care Team Providers Care Snack Foods Mixer Operator Name Role Phone Lily Her MD Primary Care Provider Larry Platt MD Unavailable [phone] Encounter Details Date Type Department Care Team (Late st Contact Info) Description 09/28/2022 Procedure Pass [facility] ENDO DEPT [address] [facility], 4th [place] [address] Social History Tobacco Use Types Packs/Day Years [...] documented as of this encounter Care Teams Snack Foods Mixer Operator Relationship Specialty Start Date End Date Lily Her MD [address] [place] [address] PCP - General Family Medicine 09/05/22 Larry Platt MD [address] [place] [address] [email or web address] Insurance Assigned Provider 12/23/22 02/23/23 documented as of this encounter Additional Source Comments The information contained in this document represents components of the legal health record. It is not the complete legal health record.[facility]
--- OUTSIDE RECORDS SUMMARY | 2025-05-18 14:31 | XMS_ITS | Encounter Summary ---
Author Organization [facility] Address [address] [facility] [address] [place] [address] Phone Care Team Providers Care Silo Erector Name Role Phone Lily Her MD Primary Care Provider Larry Platt MD Unavailable [phone] Encounter Details Date Type Department Care Team (Late st Contact Info) Description 09/06/2022 Procedure Pass [facility] [address] [place] [address], 2nd [place] [address] Social History Tobacco Use Types Packs/Day Years [...] documented as of this encounter Care Teams Silo Erector Relationship Specialty Start Date End Date Lily Her MD [address] [place] [address] PCP - General Family Medicine 09/05/22 Larry Platt MD [address] [place] [address] [email or web address] Insurance Assigned Provider 12/23/22 02/23/23 documented as of this encounter Additional Source Comments The information contained in this document represents components of the legal health record. It is not the complete legal health record.[facility]
--- OUTSIDE RECORDS SUMMARY | 2025-05-18 14:31 | XMS_ITS | Encounter Summary ---
Author Organization [facility] Address [address] [facility] [address] [place] [address] Phone Care Team Providers Care Build Master Name Role Phone Lily Her MD Primary Care Provider Encounter Details Date Type Department Care Team ([facility] st Contact Info) Description 04/05/2023 Transcribe Orders [facility] Specimen Processing [address] [place] [address] Viviana Mock Social History Tobacco Use Types [...] documented as of this encounter Care Teams Build Master Relationship Specialty Start Date End Date Lily Her MD [address] [place] [address] PCP - General Family Medicine 09/05/22 documented as of this encounter Additional Source Comments The information contained in this document represents components of the legal health record. It is not the complete legal health record.[facility]
--- OUTSIDE RECORDS SUMMARY | 2025-05-18 14:31 | XMS_ITS | Encounter Summary ---
Author Organization [facility] Address [address] [place] [address] Phone Care Team Providers Care Clinical Reimbursement Specialist Name Role Phone Lily Her MD Primary Care Provider Larry Platt MD Unavailable Encounter Details Date Type Department Care Team (Late st Contact Info) Description 11/29/2022 Transcribe Orders [facility] Specimen Processing [address] [place] [address] Brigida Garcia NP [address] [place] [address] Social History Tobacco Use Types Packs/Day Years [...] documented as of this encounter Care Teams Clinical Reimbursement Specialist Relationship Specialty Start Date End Date Lily Her MD [address] [place] [address] PCP - General Family Medicine 09/05/22 Larry Platt MD [address] [place] [address] [email or web address] Insurance Assigned Provider 12/23/22 02/23/23 documented as of this encounter Additional Source Comments The information contained in this document represents components of the legal health record. It is not the complete legal health record.[facility]
--- OUTSIDE RECORDS SUMMARY | 2025-05-18 14:31 | XMS_ITS | Encounter Summary ---
Author Organization [facility] Address [address] [facility] [address] [place] [address] Phone Care Team Providers Care Director Energy Name Role Phone Lily Her MD Primary Care Provider Encounter Details Date Type Department Care Team ([facility] st Contact Info) Description 03/27/2023 Transcribe Orders [facility] Specimen Processing [address] [place] [address] Viviana Mock Social History Tobacco Use Types [...] as of this encounter Care Teams Director Energy Relationship Specialty Start Date End Date Lily Her MD [address] [place] [address] PCP - General Family Medicine 09/05/22 documented as of this encounter Additional Source Comments The information contained in this document represents components of the legal health record. It is not the complete legal health record.[facility]
--- OUTSIDE RECORDS SUMMARY | 2025-05-18 14:31 | XMS_ITS | Encounter Summary ---
Author Organization [facility] Address [address] [facility] [address] [place] [address] Phone Care Team Providers Care Clinical Manager Home Care Name Role Phone Lily Her MD Primary Care Provider Encounter Details Date Type Department Care Team ([facility] st Contact Info) Description 03/11/2023 Transcribe Orders [facility] Specimen Processing [address] [place] [address] Viviana Mock Social History Tobacco Use Types [...] as of this encounter Care Teams Clinical Manager Home Care Relationship Specialty Start Date End Date Lily Her MD [address] [place] [address] PCP - General Family Medicine 09/05/22 documented as of this encounter Additional Source Comments The information contained in this document represents components of the legal health record. It is not the complete legal health record.[facility]
--- OUTSIDE RECORDS SUMMARY | 2025-05-18 14:31 | XMS_ITS | Encounter Summary ---
Author Organization [facility] Address [address] [place] [address] Phone Care Team Providers Care Life Science Technical Officer Name Role Phone Lily Her MD Primary Care Provider Larry Platt MD Unavailable [phone] Encounter Details Date Type Department Care Team (Late st Contact Info) Description 11/27/2022 Transcribe Orders [facility] Specimen Processing [address] [place] [address] Brigida Garcia NP [address] [place] [address] Social History Tobacco Use Types Packs/Day Years [...] documented as of this encounter Care Teams Life Science Technical Officer Relationship Specialty Start Date End Date Lily Her MD [address] [place] [address] PCP - General Family Medicine 09/05/22 Larry Platt MD [address] [place] [address] [email or web address] Insurance Assigned Provider 12/23/22 02/23/23 documented as of this encounter Additional Source Comments The information contained in this document represents components of the legal health record. It is not the complete legal health record.[facility]
--- OUTSIDE RECORDS SUMMARY | 2025-05-18 14:31 | XMS_ITS | Encounter Summary ---
Author Organization [facility] Address [address] [place] [address] Phone Care Team Providers Care Digital Media Specialist Name Role Phone Lily Her MD Primary Care Provider Encounter Details Date Type Department Care Team (Late st Contact Info) Description 04/16/2023 Transcribe Orders [facility] Specimen Processing [address] [place] [address] Maria De Jesus Clark MD [address] [place] [address] [email or web address] Social History Tobacco Use Types Packs/Day [...] documented as of this encounter Care Teams Digital Media Specialist Relationship Specialty Start Date End Date Lily Her MD [address] [place] [address] PCP - General Family Medicine 09/05/22 documented as of this encounter Additional Source Comments The information contained in this document represents components of the legal health record. It is not the complete legal health record.[facility]
--- OUTSIDE RECORDS SUMMARY | 2025-05-18 14:31 | XMS_ITS | Encounter Summary ---
Author Organization [facility] Address [address] [place] [address] Phone Care Team Providers Care Matrix Supervisor Name Role Phone Lily Her MD Primary Care Provider Encounter Details Date Type Department Care Team (Late st Contact Info) Description 04/09/2023 Transcribe Orders [facility] Specimen Processing [address] [place] [address] Maria De Jesus Clark MD [address] [place] [address] [email or web address] Social History Tobacco Use Types Packs/Day [...] documented as of this encounter Care Teams Matrix Supervisor Relationship Specialty Start Date End Date Lily Her MD [address] [place] [address] PCP - General Family Medicine 09/05/22 documented as of this encounter Additional Source Comments The information contained in this document represents components of the legal health record. It is not the complete legal health record.[facility]
--- OUTSIDE RECORDS SUMMARY | 2025-05-18 14:32 | XMS_ITS | Clinical Summary ---
Author Organization [facility] Address [address] [address] Phone Care Team Providers Care Consumer Product Advisor Name Role Phone Lily Her MD Primary Care Provider Allergies Active Allergy Reactions Criticality Noted Date Comments Dkgtvkr-Vwh-Obp Reductase Inhibitors Other (See Comments) 09/09/2022 Necrotizing [...] times a day. 70 g 11/07/19 Active avwalcep-dup-mtlpch s fumarate 15 mg iron Tab Take [...] PM EDT Inhaled Oxygen Concentration 40% 11/06/2022 4:39 AM EDT Weight 191.9 kg (423 lb) [...] this topic Medical Devices Implanted Type Area Hemodialysis Patient Care Specialist Device Identifier Shelf Expiration Date Model / [...] AM EST us Maria Antoniasilla A [facility] [place] [facility] LAB BLOOD BKR ORDERABLES Fin al Result Performing Organization Address [facility] de Phone Number [address] [phone] * (ABNORMAL) Basic metabolic panel (05/15/2023 6:08 [...] 9:27 AM EST us Brigida A [facility] [place] [facility] LAB BLOOD BKR ORDERABLES Fin al Result Performing Organization Address City/[facility]/ZIP Co de Phone Number [place] [phone] [phone] * ENDOSCOPY, COLON (09/28/2022 10:09 AM EDT) 09/28/2022 10:0 9 AM EDT Narrative Transcriptions Mara Reyna MD - 09/28/2022 10:09 AM EDT Gastrointestinal Endoscopy Unit Patient Name: Lawrence Santoyo Exam Date: 09/28/2022 10:09 AM Date of : 1970 Admit Type: Inpatient Age: 51 Room: [address] 09-R Gender: Male Note Status: Finalized [...] bowel preparation was evaluated using the BBPS ([place] Bowel Preparation Scale) with scores of: Right [...] procedure, including non-yeager portions. Mara Reyna MD, [id number] 09/28/2022 11:14:12 AM The attending physician was present throughout the entire procedure. Brock [place], , [id number] Number of Addenda: 0 Note Initiated On: 09/28/2022 10:09 AM Brock Sherman MD GI PROCEDURE ORDERABLES Final Result * (ABNORMAL) Lipid panel (09/11/2022 5:45 AM EDT) HDL 49 35 - 100 mg/dL [facility] CHOLESTEROL 168 <200 mg/dL [facility] TRIGLYCERIDES 192(H) 40 - 150 mg/dL [facility] LDL 81 50 - 129 mg/dL [facility] CARDIAC RISK RATIO 3.4 0.0 - 5.0 [facility] NON-HDL CHOLESTEROL 119 mg/dL [facility] Comment:NCEP ATP III guideli michela suggest a non-HDL cholesterol goal 30 mg/dl higher than the patient-specific LDL goal. Blood 09/11/2022 5:45 AM EDT 09/11/2022 5:57 AM EDT Harper Givens CNP LAB BLOOD BKR ORDERABL ES Final Result [address] [address] * Hepatitis C antibody, qualitative (09/07/2022 4:40 PM EDT) HCV ANTIBODY Negative Negative [facility] Comment:Antibodies to HCV no t detected. Does not exclude the possibility of exposure to HCV. 09/07/2022 4:40 PM EDT 09/07/2022 11:28 PM EDT Result [facility] Dale Page MD, PhD LAB BLOOD BKR ORDERA BLES Final Result [address] [address] from Last 3 Months or Most Recently Relevant to Health Maintenance Insurance [employer] ACO ACO Advance Directives For more information, please contact: [phone] (9AM - 5PM Karyn/[facility], Saturday-Saturday) Documents on File Type Date Recorded Patient Emg Technician Expl anation Healthcare Proxy 09/09/2022 4:27 PM * Full Code (Latest Code Status on File) Date Activated Date Inactivated Comments 10/05/2022 5:14 PM Question Answer Comments Code Status Confirmed With: Other (specify below ) * Full Code Date Activated Date Inactivated Comments 09/06/2022 12:32 PM 10/05/2022 5:14 PM Question Answer Comments Code Status Confirmed With: Patient Care Teams Consumer Product Advisor Relationship Specialty Start Date End Date Lily Her MD [address] [place] [address] PCP - General Family Medicine 09/05/22 Additional Source Comments The information contained in this document represents components of the legal health record. It is not the complete legal health record.[facility]
--- OUTSIDE RECORDS SUMMARY | 2025-05-18 14:32 | XMS_ITS | Encounter Summary ---
Author Organization [facility] Address [address] [facility] [address] [place] [address] Phone Care Team Providers Care Autistic Teacher Name Role Phone Lily Her MD Primary Care Provider Encounter Details Date Type Department Care Team ([facility] st Contact Info) Description 09/16/2023 Transcribe Orders [facility] Specimen Processing [address] [place] [address] L[place] Social History Tobacco Use Types Packs/Day [...] documented as of this encounter Care Teams Autistic Teacher Relationship Specialty Start Date End Date Lily Her MD [address] [place] [address] PCP - General Family Medicine 09/05/22 documented as of this encounter Additional Source Comments The information contained in this document represents components of the legal health record. It is not the complete legal health record.[facility]
== END 2025-05-18 13:56 | disposition home or self-care (01) ==
PROVIDERS: Physician Assistant Medical; Emergency Provider Emergency Medicine
DX: U07.1 COVID-19 (principal); E78.5 Hyperlipidemia, unspecified; I10 Essential (primary) hypertension; F17.210 Nicotine dependence, cigarettes, uncomplicated; Z86.73 Personal history of transient ischemic attack (TIA), and cerebral infarction without residual deficits; Z86.711 Personal history of pulmonary embolism; Z79.01 Long term (current) use of anticoagulants; Z79.899 Other long term (current) drug therapy
CPT/HCPCS: 36415; 74176; 80053; 81003; 83690; 83735; 85025; 87637; 96365; 96366; 96375; 99284; 99285; J0131; J1200; J2765

== ENCOUNTER → 2025-05-18 10:41 | Outpatient (BNV) | payer MEDICARE, MEDICAID, SELFPAY | PROVIDERS: Emergency Provider Emergency Medicine; Visit Provider Radiology Diagnostic Radiology | DX: R16.1 Splenomegaly, not elsewhere classified (principal); K59.00 Constipation, unspecified | CPT/HCPCS: 74176 ==